=== PATIENT | male | born 1975 | race Caucasian/White ===

== ENCOUNTER 2019-04-19 09:40 | Day surgery (SDC) | payer OTHER ==
[~2019-04-19] VITALS: Ht 175.3 cm; Wt 82.4 kg
[2019-04-19] MEDS ORDERED: METRONIDAZOLE (11:23)
[2019-04-19] MEDS ORDERED: CIPRO (11:23)
[2019-04-19 11:30] VITALS: Ht 175.3 cm; Wt 82.4 kg
[2019-04-19 11:35] VITALS: BP 132/80; PULSE 74; RESP 18
[2019-04-19] MEDS ORDERED: MIDAZOLAM 1 MG/ML 2 ML INJ ONE ×3 (12:22)
[2019-04-19] MEDS ORDERED: FENTAnyl 50 MCG/ML VIAL ONE (12:22)
[2019-04-19 12:41] VITALS: BP 128/83; PULSE 84; RESP 18
== END 2019-04-19 15:33 | disposition home or self-care (01) ==
LOC: GIL 09:40
PROVIDERS: ATTEND Internal Medicine Gastroenterology
DX: Z12.11 Encounter for screening for malignant neoplasm of colon (principal); K64.4 Residual hemorrhoidal skin tags
CPT/HCPCS: 45378; J2250; J3010; Z7610

== ENCOUNTER 2019-04-25 14:14 | Inpatient (IN) | payer OTHER ==
[~2019-04-25] VITALS: Ht 170.2 cm; Wt 81.6 kg
[~2019-04-25 14:14] MED LIST: CIPRO; METRONIDAZOLE
[2019-04-25] MEDS ORDERED: SOD CHLORIDE 0.9% 1,000 ML IV STA (16:53)
--- NOTE | 2019-04-25 16:53 | ERD ---
ER Documentation Chief Complaint Chief Complaint ap x6 days, has colonscopy and on ABX ROS All systems reviewed and are negative except as per history of present illness. Medications Home Meds Reported Medications [Metronidazole] No Conflict Check 04/19/19 [Cipro] No Conflict Check 04/19/19 Allergies Allergies: Coded Allergies: No Known Allergy (Unverified , 04/19/19) PMhx/Soc Medical and Surgical Hx: pt denies Surgical Hx History of Surgery: No Anesthesia Reaction: No Hx Neurological Disorder: No Hx Respiratory Disorders: No Hx Cardiac Disorders: No Hx Psychiatric Problems: No Hx Miscellaneous Medical Probl: Yes (SHINGLES) Hx Substance Use: No Hx Tobacco Use: No Smoking Status: Never smoker Physical Exam Vitals Vital Signs Date Temp Pulse Resp B/P (MAP) Pulse Ox O2 O2 Flow FiO2 Time Delivery Rate 04/25/19 98.9 80 18 125/63 98 14:21 (83) Result Diagram: 04/25/19 1705 04/25/19 1705 Results 24 hrs Laboratory Tests Test 04/25/19 17:05 White Blood Count 11.4 10^3/ul Red Blood Count 4.69 10^6/ul Hemoglobin 13.7 g/dl Hematocrit 40.8 % Mean Corpuscular Volume 87.0 fl Mean Corpuscular Hemoglobin 29.2 pg Mean Corpuscular Hemoglobin Concent 33.6 g/dl Red Cell Distribution Width 12.0 % Platelet Count 434 10^3/UL Mean Platelet Volume 9.0 fl Immature Granulocytes % 0.400 % Neutrophils % 68.8 % Lymphocytes % 17.0 % Monocytes % 12.3 % Eosinophils % 1.0 % Basophils % 0.5 % Nucleated Red Blood Cells % 0.0 /100WBC Immature Granulocytes # 0.050 10^3/ul Neutrophils # 7.9 10^3/ul Lymphocytes # 1.9 10^3/ul Monocytes # 1.4 10^3/ul Eosinophils # 0.1 10^3/ul Basophils # 0.1 10^3/ul Nucleated Red Blood Cells # 0.0 10^3/ul Urine Color YELLOW Urine Clarity CLEAR Urine pH 5.0 Urine Specific [place] 1.028 Urine Ketones NEGATIVE mg/dL Urine Nitrite NEGATIVE mg/dL Urine Bilirubin NEGATIVE mg/dL Urine Urobilinogen NEGATIVE mg/dL Urine Leukocyte Esterase TRACE Pete/ul Urine Microscopic RBC 1 /HPF Urine Microscopic WBC 1 /HPF Urine Mucus FEW /HPF Urine Hemoglobin NEGATIVE mg/dL Urine Glucose NEGATIVE mg/dL Urine Total Protein NEGATIVE mg/dl Sodium Level 142 mmol/L Potassium Level 4.5 mmol/L Chloride Level 103 mmol/L Carbon Dioxide Level 30 mmol/L Anion Gap 9 Blood Urea Nitrogen 10 mg/dl Creatinine 0.96 mg/dl Est Glomerular Filtrat Rate mL/min > 60 mL/min Glucose Level 103 mg/dl Calcium Level 9.0 mg/dl Total Bilirubin 0.5 mg/dl Direct Bilirubin 0.00 mg/dl Indirect Bilirubin 0.5 mg/dl Aspartate Amino Transf (AST/SGOT) 14 IU/L Alanine Aminotransferase (ALT/SGPT) 14 IU/L Alkaline Phosphatase 51 IU/L Total Protein 8.6 g/dl Albumin 4.2 g/dl Globulin 4.40 g/dl Albumin/Globulin Ratio 0.95 Lipase 58 U/L Current Medications Medications Dose Sig/Mariana Start Time Status Last (Trade) Ordered Route PRN Stop Time Admin Dose Reason Admin Sodium 1,000 ml @ Q1H STAT 04/25/19 DC 04/25/19 Chloride 1,000 mls/hr IV 16:53 04/25/19 17:08 17:52 IV Flush 10 ml STK-MED 04/25/19 DC 04/25/19 (NS 10 ml) ONCE .ROUTE 18:05 04/25/19 18:27 18:06 Sodium 100 ml @ ud STK-MED 04/25/19 DC 04/25/19 Chloride ONCE .ROUTE 18:05 04/25/19 18:27 18:06 Iohexol 150 ml STK-MED 04/25/19 DC 04/25/19 (Omnipaque ONCE .ROUTE 18:05 04/25/19 18:27 300mg/ ml) 18:06 Patient: RAUL MUNOZ : 1975 Age: 43 Sex: M MR #: [id number] DOS: 04/25/19 1653 Ordering MD: BENNIE LINARES MD Location: [facility] Room/Bed: PROCEDURE: CT Abdomen and Pelvis with intravenous contrast. CLINICAL INDICATION: Abdominal Pain . TECHNIQUE: CT scan of the abdomen and pelvis with intravenous contrast was performed on a multi-detector high-resolution CT scanner. The patient was scanned following the uncomplicated intravenous administration of 100 cc of Omnipaque-300 contrast. Coronal and sagittal reformatted images were obtained from the axial source images. DICOM images are available. CTDIvol 12.68 mGy, and DLP 779.57 mGy.cm. One or more of the following dose reduction techniques were used: - Automated exposure control. - Adjustment of the mA and/or kV according to patient size. - Use of iterative reconstruction technique. COMPARISON: None available FINDINGS: Lower thorax: Normal. Liver: Normal. Portal vein is patent. Biliary: Gallbladder is normal. No intrahepatic or extrahepatic biliary dilatation. Pancreas: Normal. Spleen: Normal. Adrenal Glands: Normal. Urinary: Normal. Gastrointestinal: There is mild prominence of the appendix which courses towards a irregular 3.2 x 5.3 by 3.1 cm (AP x TV x CC) air and fluid collection with p eripheral enhancement, in the mid lower abdomen, concerning for perforation and abscess. There is also sigmoid colon diverticulitis with bowel wall thickening and adjacent stranding, which abuts the inferior aspect of the air fluid collection. Lymph nodes: No enlarged abdominal or pelvic lymph nodes. Shotty retroperitoneal lymph nodes are likely reactive. Vascular: Normal. Peritoneum/mesentery: Air and fluid collection in the lower abdomen as described above Reproductive organs: Normal. Musculoskeletal: Degenerative changes of the spine at L5-S1. IMPRESSION: There is an air and fluid collection suggestive of abscess measuring 3.2 x 5.3 x 3.1 cm in the lower mid abdomen. The appendix appears to course towards the collection, suggestive of ruptured appendicitis. However, there is also sigmoid colon diverticulitis which also abuts the inferior margin of the collection, and diverticular abscess is not totally excluded. If clinically indicated, consider further evaluation with CT abdomen pelvis with oral contrast. Departure Diagnosis: Primary Impression: Abdominal pain Additional Impression: History of diverticulitis Condition: Stable BENNIE LINARES MD Apr 25, 2019 16:53
[2019-04-25] MEDS ORDERED: SOD CHLORIDE 0.9% 100 ML ONE (18:05)
[2019-04-25] MEDS ORDERED: IOHEXOL 300MG/ML 150 ML BTL ONE (18:05)
[2019-04-25] MEDS ORDERED: PIPER-TAZO 3.375 GM IV (PMX) 100 ML IVPB ONE (20:00)
--- NOTE | 2019-04-25 20:14 | ERD ---
ER Documentation Chief Complaint Chief Complaint ap x6 days, has colonscopy and on ABX HPI This is a very pleasant 43-year-old male with no past medical history presents to the emergency department complaining of several weeks of abdominal pain. The patient indicated that the abdominal pain initially began in the lower periumbilical region. He states that it began to radiate to both the left and right lower quadrant. At the onset of his symptoms he initially went to his primary care physician and had an outpatient CT scan of the abdomen performed that indicated diverticulitis. The patient was started on ciprofloxacin and Flagyl. Indicates that his symptoms did not improve and therefore he will underwent an outpatient colonoscopy on April 20, 2019 roughly 1 week ago. At that time he was placed on further continuation of the antibiotics being ciprofloxacin and Flagyl but the dose was changed from 500 to 250 mg of cip rofloxacin. The patient states however that the pain has significantly worsened. He indicates that the pain is diffuse. He has not experienced any emesis. He states there is no alleviating or exacerbating factors to the pain. The patient indicates his last oral intake was roughly 12 hours prior to arrival. He had no past surgical history. ROS All systems reviewed and are negative except as per history of present illness. Medications Home Meds Reported Medications [Metronidazole] No Conflict Check 04/19/19 [Cipro] No Conflict Check 04/19/19 Allergies Allergies: Coded Allergies: No Known Allergy (Unverified , 04/19/19) PMhx/Soc Medical and Surgical Hx: pt denies Surgical Hx History of Surgery: No Anesthesia Reaction: No Hx Neurological Disorder: No Hx Respiratory Disorders: No Hx Cardiac Disorders: No Hx Psychiatric Problems: No Hx Miscellaneous Medical Probl: Yes (SHINGLES) Hx Substance Use: No Hx Tobacco Use: No Smoking Status: Never smoker Physical Exam Vitals Vital Signs Date Temp Pulse Resp B/P (MAP) Pulse Ox O2 O2 Flow FiO2 Time Delivery Rate 04/25/19 99.3 70 16 127/85 98 Room Air 20:03 (99) 04/25/19 98.9 80 18 125/63 98 14:21 (83) Physical Exam Constitutional:Well-developed. Well-nourished. HEENT:Normocephalic. Atraumatic.Pupils were equal round reactive to light. Moist mucous membranes.No tonsillar exudates. Neck: No nuchal rigidity. No lymphadenopathy. No posterior cervical spine tenderness or step-offs. Respiratory: Not using accessory muscles of respiration.Lungs were clear to auscultation bilaterally. No rhonchi. No rales. No wheezing. Cardiovascular: Regular rate regular rhythm.No murmurs. No rubs were appreciate d.S1, S2 normal. Distal pulses are palpable 2+ bilaterally. GI: Abdomen was soft. Guarding with no rebound. Tenderness in the left lower quadrant. Tenderness in the lower mid abdomen. Tenderness in the right lower quadrant. Psoas sign negative. Obturator sign negative. Non Distended. No pulsatile abdominal masses or bruits. No rebound. Bowel sounds were present and normal. Skin: No petechia, no purpura. No lesions on the palms or the soles of the feet. No maculopapular rash. NEURO: Patient was alert, awake, orientated x3.No facial droop. Gait observed and normal with no ataxia.Speech had regular rate and rhythm. No focal neurological deficits. Result Diagram: 04/25/19 1705 04/25/19 1705 Results 24 hrs Laboratory Tests Test 04/25/19 17:05 White Blood Count 11.4 10^3/ul Red Blood Count 4.69 10^6/ul Hemoglobin 13.7 g/dl Hematocrit 40.8 % Mean Corpuscular Volume 87.0 fl Mean Corpuscular Hemoglobin 29.2 pg Mean Corpuscular Hemoglobin Concent 33.6 g/dl Red Cell Distribution Width 12.0 % Platelet Count 434 10^3/UL Mean Platelet Volume 9.0 fl Immature Granulocytes % 0.400 % Neutrophils % 68.8 % Lymphocytes % 17.0 % Monocytes % 12.3 % Eosinophils % 1.0 % Basophils % 0.5 % Nucleated Red Blood Cells % 0.0 /100WBC Immature Granulocytes # 0.050 10^3/ul Neutrophils # 7.9 10^3/ul Lymphocytes # 1.9 10^3/ul Monocytes # 1.4 10^3/ul Eosinophils # 0.1 10^3/ul Basophils # 0.1 10^3/ul Nucleated Red Blood Cells # 0.0 10^3/ul Urine Color YELLOW Urine Clarity CLEAR Urine pH 5.0 Urine Specific [place] 1.028 Urine Ketones NEGATIVE mg/dL Urine Nitrite NEGATIVE mg/dL Urine Bilirubin NEGATIVE mg/dL Urine Urobilinogen NEGATIVE mg/dL Urine Leukocyte Esterase TRACE Pete/ul Urine Microscopic RBC 1 /HPF Urine Microscopic WBC 1 /HPF Urine Mucus FEW /HPF Urine Hemoglobin NEGATIVE mg/dL Urine Glucose NEGATIVE mg/dL Urine Total Protein NEGATIVE mg/dl Sodium Level 142 mmol/L Potassium Level 4.5 mmol/L Chloride Level 103 mmol/L Carbon Dioxide Level 30 mmol/L Anion Gap 9 Blood Urea Nitrogen 10 mg/dl Creatinine 0.96 mg/dl Est Glomerular Filtrat Rate mL/min > 60 mL/min Glucose Level 103 mg/dl Calcium Level 9.0 mg/dl Total Bilirubin 0.5 mg/dl Direct Bilirubin 0.00 mg/dl Indirect Bilirubin 0.5 mg/dl Aspartate Amino Transf (AST/SGOT) 14 IU/L Alanine Aminotransferase (ALT/SGPT) 14 IU/L Alkaline Phosphatase 51 IU/L Total Protein 8.6 g/dl Albumin 4.2 g/dl Globulin 4.40 g/dl Albumin/Globulin Ratio 0.95 Lipase 58 U/L Current Medications Medications Dose Sig/Mariana Start Time Status Last (Trade) Ordered Route PRN Stop Time Admin Dose Reason Admin Sodium 1,000 ml @ Q1H STAT 04/25/19 DC 04/25/19 Chloride 1,000 mls/hr IV 16:53 04/25/19 17:08 17:52 IV Flush 10 ml STK-MED 04/25/19 DC 04/25/19 (NS 10 ml) ONCE .ROUTE 18:05 04/25/19 18:27 18:06 Sodium 100 ml @ ud STK-MED 04/25/19 DC 04/25/19 Chloride ONCE .ROUTE 18:05 04/25/19 18:27 18:06 Iohexol 150 ml STK-MED 04/25/19 DC 04/25/19 (Omnipaque ONCE .ROUTE 18:05 04/25/19 18:27 300mg/ ml) 18:06 Piperacillin 100 ml @ ONCE ONCE 04/25/19 DC 04/25/19 Sod/ 200 mls/hr IVPB 20:00 04/25/19 19:59 Tazobactam 20:29 Sod Morphine 4 mg ONCE STAT 04/25/19 DC 04/25/19 Sulfate IV 20:31 04/25/19 20:37 (morphine) 20:32 Ondansetron 4 mg ONCE STAT 04/25/19 DC 04/25/19 HCl (Zofran IV 20:31 04/25/19 20:37 Inj) 20:32 Ondansetron 4 mg BRIDGE ORDER 04/25/19 HCl (Zofran PRN IV 21:30 04/26/19 Inj) NAUSEA/VOMITI 21:29 NG Iohexol Adult GIVE PRIOR 04/25/19 ((Gastrografi Formulation TO CT ONCE 21:30 04/25/19 n (Ple... PO 21:31 therapeutic equivalent)) Procedures/MDM This patient presented to the emergency department with abdominal pain and was seen and evaluated by myself. My differential diagnosis included but was not limited to abdominal aortic aneurysm, appendicitis, pancreatitis, perforated peptic ulcer, perforated viscus, Boerhaave's syndrome or visceral pain such as diverticulitis, DKA, esophagitis, hepatitis or bowel obstruction. The patient was placed on a bungy jump master, continuous pulse oximetry, and IV access was established by nursing staff. The patient did have a CT scan that was reviewed by both myself and the radiologist. This was with IV contrast. There was air and fluid collection in the lower mid abdomen measuring 3.2 x 5.3 x 3.1 cm. The appendix was very coarse towards the collection that could be suggestive of an abscess or ruptured appendicitis. At this time the patient was given IV Zosyn. The findings on the CT scan also indicated that there was sigmoid colon diverticulitis that abated with the inferior margin of the fluid collection and therefore a diverticular abscess could not completely be excluded. I am going to order a CT scan of the abdomen with oral contrast for further evaluation. He was given intravenous morphine and Zofran for analgesia control. I placed a call to the surgeon commissions coordinator. Dr. Mendoza. He was in agreement with performing the CT with oral contrast as the patient will likely benefit from IR drainage. The patient will be admitted under the care of Dr. Mercado. Patient will go to the medical surgical floor. Departure Diagnosis: Primary Impression: Ruptured appendicitis Additional Impression: Diverticulitis Condition: Stable JULI JONES MD Apr 25, 2019 20:14
[2019-04-25] MEDS ORDERED: ONDANSETRON 4 MG INJ IV STA (20:31)
[2019-04-25] MEDS ORDERED: morphine 4 MG/ML VIAL IV STA (20:31)
[2019-04-25 20:45] VITALS: BP 115/80; PULSE 62; RESP 18
[2019-04-25] MEDS ORDERED: IOHEXOL 14.3 MG(I)/ML (ADULT) BTL PO ONE (21:30)
[2019-04-25] MEDS ORDERED: NACL 0.9% 3 ML SYG IV SCH (21:30)
[2019-04-25] MEDS ORDERED: ACETAMINOPHEN 325 MG TAB PO PRN (21:30)
[2019-04-25] MEDS ORDERED: OXYCODONE/ACETAMINOPHEN (5/325) TAB PO PRN (21:30)
[2019-04-25] MEDS ORDERED: ACETAMINOPHEN 650 MG SUPP PR PRN (21:30)
[2019-04-25] MEDS ORDERED: ONDANSETRON 4 MG INJ IV PRN ×2 (21:30)
[2019-04-25] MEDS ORDERED: BISACODYL (EC) 5 MG TAB PO PRN (21:30)
[2019-04-25 22:45] VITALS: Ht 170.2 cm; Wt 81.6 kg
[2019-04-25] MEDS ORDERED: DIC20 PO (22:52)
[2019-04-25] MEDS ORDERED: METR-111 PO (22:52)
[2019-04-25] MEDS ORDERED: CIPR500T4 PO (22:52)
[2019-04-25] MEDS: DEXTROSE 5%-0.45% NACL 1,000 ML IV SCH (23:13)
[2019-04-25] MEDS: morphine 2 MG INJ IV PRN (23:14)
[2019-04-26] MEDS ORDERED: PIPER-TAZO 3.375 GM IV (PMX) 100 ML IVPB SCH (06:00)
[2019-04-26] MEDS ORDERED: PANTOPRAZOLE 40 MG INJ IV SCH (06:00)
[2019-04-26] MEDS: FAMOTIDINE 20 MG INJ IV SCH ×2 (07:57→21:05)
[2019-04-26 08:07] VITALS: BP 103/69; PULSE 55; RESP 18
[2019-04-26] MEDS: DEXTROSE 5%-0.45% NACL 1,000 ML IV SCH ×2 (09:53→11:31)
[2019-04-26] MEDS: morphine 2 MG INJ IV PRN ×4 (11:28→23:21)
--- NOTE | 2019-04-26 12:05 | QN ---
Documentation Comment pt was seen and examined WENDI BELL MD Apr 26, 2019 12:05
--- NOTE | 2019-04-26 13:14 | HP ---
DATE OF ADMISSION: 04/25/2019 REASON FOR ADMISSION: Abdominal pain. HISTORY OF PRESENT ILLNESS: This is a 43-year-old male with a past medical history of diverticulitis , last episode 3 to 4 months ago, presented to the Emergency Department complaining of several weeks of abdominal pain getting worse for the past few days. The patient said that initially the patient s tarted having pain in the left lower quadrant approximately 2 weeks ago. He went to his primary care physician, had an outpatient CT scan performed that indicated diverticulitis. The patient was start ed on Cipro and Flagyl and stated that the patient's symptoms did not improve; therefore, he underwen t an outpatient colonoscopy on 04/20/[address] Galindo. At that time, he was placed on further co ntinuation of antibiotics with Cipro and Flagyl and the Flagyl dose was reduced to 250. There was an other new medication that was added. Since then, the patient said that pain had been getting worse. The pain was now in the lower abdominal region below the umbilicus and also in the right lower quadr ant. He started having fevers for the last 2 to 3 days and the pain was getting diffuse and he was t rying to eat something, but he could not eat. He was feeling weak, tired and was having weight loss and came to the Emergency Department for further evaluation. On admission, temperature 98.9, pulse 8 0, respirations 18, blood pressure 125/63. White count 11.4, hemoglobin 13.7, platelet count 434. P atient had a CT of the abdomen and pelvis which was done initially with no contrast and then with IV contrast that showed air-filled collection suggestive of abscess measuring 3.2, to 5.3, to 3.1 cm in the lower mid abdomen. Appendix appears to course toward the collection, suggestive of ruptured appe ndicitis; however, there is also sigmoid colon diverticulitis which also abuts the inferior margin of the collection and diverticular abscess not totally excluded. Patient was started on Zofran, morphi ne and Zosyn and was admitted for further management. PAST MEDICAL HISTORY: History of diverticulosis and diverticulitis. ALLERGIES: None. HOME MEDICATIONS: 1. Cipro 500 b.i.d. 2. Flagyl 250 t.i.d. 3. Dicyclomine 20 b.i.d. PAST SURGICAL HISTORY: None. SOCIAL HISTORY: Denies any history of smoking, alcohol or any drug use. Currently lives at home. T he patient used to work in a [employer] business. FAMILY HISTORY: Significant for colon surgeries, bowel surgeries. Sister had colectomy and also mot her. PHYSICAL EXAMINATION: VITAL SIGNS: Currently, blood pressure 120/81. Initial temperature was 100.0, pulse is 70, respirat ions 22, saturating 91.7%. GENERAL: The patient is awake, alert, oriented, does not appear to be in any acute distress with mil d pain. HEENT: Normocephalic, atraumatic. NECK: Supple. No rigidity. CHEST: Clear to auscultate bilaterally. ABDOMEN: Soft, no rebound tenderness. Tenderness present in the right lower quadrant and lower abdo men below the umbilicus. Psoas sign negative. Positive bowel sounds. EXTREMITIES: No clubbing, cyanosis, or edema. NEUROLOGIC: Awake, alert, oriented, follows all commands, no weakness. DIAGNOSTIC DATA: Shows white count of 11.4, hemoglobin 13.7, platelet count 434. BMP shows BUN of 1 0, creatinine 0.96. UA showed negative CT of the abdomen and pelvis: As above. ASSESSMENT AND PLAN: This is a 43-year-old male presented with: 1. Severe lower abdominal pain with a CT of the abdomen and pelvis showing an air and fluid collecti on suggestive of abscess, 3.2 x 5.3 cm x 3.1 cm. Could be secondary to ruptured appendicitis/sigmoid ruptured diverticulitis. 2. History of diverticulosis, status post diverticulitis already treated with p.o. antibiotics. 3. History of colitis. 4. Leukocytosis secondary to #1. PLAN: At this period of time, the patient is admitted to med/surg. The patient will be kept n.p.o. The patient is on IV Zofran, pain control, and IV Zosyn. I spoke to Dr. Juan. The patient had ord ers for a CT-guided drainage; however, radiology not able to do it. I spoke to . Again, esteban mckeon give her expert opinion for possible surgery. We will also call Dr. Galindo for GI consultation. Rest of the treatment will depend on the patient's hospitalization course. Dictated By: WENDI MACEDO/FABIENNE Conf#: [id number] DID#: [id number] CC: SURESH SINGH MD;*End*
[2019-04-26 14:32] VITALS: BP 121/78; PULSE 55; RESP 18
--- NOTE | 2019-04-26 17:43 | CONS ---
DATE OF ADMISSION: 04/25/2019 DATE OF CONSULTATION: HISTORY OF PRESENT ILLNESS: The patient is a 43-year-old male with a history of diverticulitis, last episode was 4 months ago, came to the emergency room complaining of pain in the lower quadrant which started acutely. The patient had emergency CAT scan done which showed abscess collection. The radi ologist was not certain whether it is due to the diverticular rupture or due to the appendiceal ruptu re. The patient had a colonoscopy done 7 days ago, and at that point, there was a segmental colitis, but no fresh diverticulitis was identified. So, the patient is admitted for further management and treatment. The patient was evaluated by the surgeon. Since the radiologist could not drain the absc ess in outpatient, he is scheduled for surgery. This information, I got from the patient and the sta ff nurse. PAST MEDICAL HISTORY: History of diverticulosis and diverticulitis. HOME MEDICATIONS: 1. Cipro. 2. Flagyl. 3. Dicyclomine. SOCIAL HISTORY: Negative for smoking, alcohol or drug abuse. FAMILY HISTORY: Nothing contributory. PHYSICAL EXAMINATION: GENERAL: Well-built, nourished, not in distress. VITAL SIGNS: Stable. HEENT: Unremarkable. NECK: Supple. No thyromegaly, no lymphadenopathy. CARDIOVASCULAR: No murmur, gallop or click. LUNGS: Clear. ABDOMEN: Benign except for mild tenderness in suprapubic area. LUNGS: Clear. EXTREMITIES: No edema. CENTRAL NERVOUS SYSTEM: Grossly within normal. LABORATORY DATA: WBC dropped down from 11.4 to 9.4. IMPRESSION: 1. Abscess, suprapubic area, diverticular versus appendiceal. 2. Mild leukocytosis. PLAN: NPO. Continue antibiotic and surgical followup. Dictated By: LILI LOPEZ MD PJ/NTS Conf#: [id number] DID#: [id number] CC: SURESH SINGH MD;*EndCC*
--- NOTE | 2019-04-26 17:48 | CONS ---
Assessment/Plan Assessment/Plan Hospital Course (Demo Recall) Invasive radiology consulted but they were unable to place the drain because they do not see it is suitable window to safely pass the needle. Problems: (1) Abdominal pain Status: Acute Qualifiers: Qualified Codes: R10.30 - Lower abdominal pain, unspecified (2) History of diverticulitis Status: Acute (3) Diverticulitis Status: Acute Assessment/Plan (Daily) Given the recurrent attacks of acute diverticulitis and abscess that is not am enable for percutaneous drainage the patient will benefit from laparoscopy washout and drainage of the intra-abdominal abscess. In addition I discussed with the patient the possibility of diverting ileostomy. Vision regarding ileostomy will be obtained during the surgery. We discussed risks and benefits were discussed possible side effects, possible complications including but not limited to bleeding, infection, injury to other organs, anesthesia complication, patient understood risk and benefits and wished to proceed. Consultation Date/Type/Reason Admit Date/Time Apr 25, 2019 at 21:01 Date of Consultation: Apr 26, 2019 Type of Consult Surgical Reason for Consultation Acute perforated diverticulitis Date/Time of Note DATE: 04/26/19 TIME: 17:44 Hx of Present Illness This is a 43-year-old male with a past medical history of diverticulitis, last episode 3 to 4 months ago, presented to the Emergency Department complaining of several weeks of abdominal pain getting worse for the past few days. The patient said that initially the patient started having pain in the left lower quadrant approximately 2 weeks ago. He went to his primary care physician, had an outpatient CT scan performed that indicated diverticulitis. The patient was started on Cipro and Flagyl and stated that the patient's symptoms did not improve; therefore, he underwent an outpatient colonoscopy on 04/20/[address] Galindo. At that time, he was placed on further continuation of antibiotics with Cipro and Flagyl and the Flagyl dose was reduced to 250. There was another new medication that was added. Since then, the patient said that pain had been getting worse. The pain was now in the lower abdominal region below the umbilicus and also in the right lower quadrant. He started having fevers for the last 2 to 3 days and the pain was getting diffuse and he was trying to eat something, but he could not eat. He was feeling weak, tired and was having weight loss and came to the Emergency Department for further evaluation. On admission, temperature 98.9, pulse 80, respirations 18, blood pressure 125/63. White count 11.4, hemoglobin 13.7, platelet count 434. Patient had a CT of the abdomen and pelvis which was done initially with no contrast and then with IV contrast that showed air-filled collection suggestive of abscess measuring 3.2, to 5.3, to 3.1 cm in the lower mid abdomen. Appendix appears to course toward the collection, suggestive of ruptured appendicitis; however, there is also sigmoid colon diverticulitis which also abuts the inferior margin of the collection and diverticular abscess not totally excluded. Patient was started on Zofran, morphine and Zosyn and was admitted for further management. Constitutional: no complaints, improved Eyes: no complaints ENT: no complaints Respiratory: no complaints Cardiovascular: no complaints Gastrointestinal: pain, diarrhea Genitourinary: no complaints Musculoskeletal: no complaints Skin: no complaints Neurologic: no complaints Endocrine: no complaints Lymphatic: no complaints Psychological: no complaints, nl mood/affect Immunologic: no complaints Past Medical History Medical History: diverticulitis Home Meds Reported Medications Dicyclomine HCl (Dicyclomine HCl) 20 Mg Tablet, 20 MG PO BID for 30 Days, #60 TAKE 1 TABLET BY MOUTH TWICE A DAY 04/25/19 Ciprofloxacin Hcl* (Ciprofloxacin Hcl*) 500 Mg Tablet, 500 MG PO BID TAKE 1 TABLET BY MOUTH TWICE A DAY FOR 7 DAYS 04/25/19 Metronidazole (Flagyl) 250 Mg Tab, 250 MG PO TID for 7 Days, #21 TAKE 1 TABLET BY MOUTH 3 TIMES A DAY FOR 7 DAYS 04/25/19 Discontinued Reported Medications [Metronidazole] No Conflict Check 04/19/19 [Cipro] No Conflict Check 04/19/19 Medications Current Medications Dextrose/Sodium Chloride 1,000 ml @ 80 mls/hr [id number] IV Last administered on 04/26/19at 11:31; Admin Dose 80 MLS/HR; Start 04/25/19 at 21:23 IV Flush (NS 3 ml) 3 ml PER PROTOCOL IV ; Start 04/25/19 at 21:30 Ondansetron HCl (Zofran Inj) 4 mg Q6H PRN IV NAUSEA/VOMITING; Start 04/25/19 at 21:30 Acetaminophen (Tylenol Tab) 650 mg Q6H PRN PO .PAIN 1-3 OR TEMP; Start 04/25/19 at 21:30 Acetaminophen (Tylenol Supp) 650 mg Q6H PRN [place] .PAIN 1-3 OR TEMP; Start 04/25/19 at 21:30 Morphine Sulfate (morphine) 2 mg Q4H PRN IV .SEVERE PAIN 7-10 Last administered on 04/26/19at 15:44; Admin Dose 2 MG; Start 04/25/19 at 21:30 Docusate Sodium (Colace) 100 mg Q12H PRN PO .CONSTIPATION; Start 04/25/19 at 21:30 Magnesium Hydroxide (Milk Of Mag) 30 ml DAILY PRN PO .CONSTIPATION; Start 04/25/19 at 21:30 Famotidine (Pepcid Iv) 20 mg BID IV ; Start 04/26/19 at 09:00 Allergies: Coded Allergies: No Known Allergy (Unverified , 04/25/19) Family History Significant Family History: other (Mother and sister both had diverticulitis in both that colectomy was performed) Social History Alcohol Use: none Smoking Status: Never smoker Exam/Review of Systems Exam Vitals Vital Signs Date Temp Pulse Resp B/P (MAP) Pulse Ox O2 O2 Flow FiO2 Time Delivery Rate 04/26/19 98.6 55 18 121/78 99 Room Air 14:32 (92) Intake and Output 04/25/19 04/25/19 04/26/19 1515:00 23:00 07:00 IntakeIntake Total 1000 ml 1300 ml OutputOutput Total 1050 ml BalanceBalance 1000 ml 250 ml Constitutional: alert, oriented, well developed Psych: no complaints, nl mood/affect Head: normocephalic, atraumatic Eyes: nl conjunctiva, EOMI, nl lids, nl sclera, PERRL ENMT: nl external ears & nose, nl lips & teeth, nl nasal mucosa & septum Neck: supple, non-tender Respiratory: clear to auscultation, normal air movement Cardiovascular: regular rate and rhythm, nl pulses Gastrointestinal: soft, nl liver, spleen, non-tender, other (There is marked tenderness in the left lower quadrant and lower mid abdomen) Musculoskeletal: nl extremities to inspection, nl gait and stance Extremities: normal pulses Neurological: DOCTOR ASSISTANT II-XII intact, nl mental status, nl speech, nl strength Skin: nl turgor; No rash or lesions Lymph: nl lymph nodes Results Result Diagram: 04/26/19 0418 04/26/19 0418 Results 24hrs Laboratory Tests Test 04/26/19 04:18 White Blood Count 9.4 Red Blood Count 4.13 L Hemoglobin 12.2 L Hematocrit 35.7 L Mean Corpuscular Volume 86.4 Mean Corpuscular Hemoglobin 29.5 Mean Corpuscular Hemoglobin Concent 34.2 Red Cell Distribution Width 12.1 Platelet Count 381 Mean Platelet Volume 9.2 Immature Granulocytes % 0.500 H Neutrophils % 65.4 Lymphocytes % 20.2 Monocytes % 11.3 H Eosinophils % 2.1 Basophils % 0.5 Nucleated Red Blood Cells % 0.0 Immature Granulocytes # 0.050 H Neutrophils # 6.1 Lymphocytes # 1.9 Monocytes # 1.1 H Eosinophils # 0.2 Basophils # 0.1 Nucleated Red Blood Cells # 0.0 Sodium Level 143 Potassium Level 4.1 Chloride Level 105 Carbon Dioxide Level 28 Anion Gap 10 Blood Urea Nitrogen 7 Creatinine 0.96 Est Glomerular Filtrat Rate mL/min > 60 Glucose Level 108 Calcium Level 8.7 Total Bilirubin 0.6 Direct Bilirubin 0.00 Indirect Bilirubin 0.6 Aspartate Amino Transf (AST/SGOT) 13 L Alanine Aminotransferase (ALT/SGPT) 17 Alkaline Phosphatase 46 Total Protein 7.2 # Albumin 3.5 Globulin 3.70 H Albumin/Globulin Ratio 0.94 Medications Medication Current Medications Dextrose/Sodium Chloride 1,000 ml @ 80 mls/hr [id number] IV Last administered on 04/26/19at 11:31; Admin Dose 80 MLS/HR; Start 04/25/19 at 21:23 IV Flush (NS 3 ml) 3 ml PER PROTOCOL IV ; Start 04/25/19 at 21:30 Ondansetron HCl (Zofran Inj) 4 mg Q6H PRN IV NAUSEA/VOMITING; Start 04/25/19 at 21:30 Acetaminophen (Tylenol Tab) 650 mg Q6H PRN PO .PAIN 1-3 OR TEMP; Start 04/25/19 at 21:30 Acetaminophen (Tylenol Supp) 650 mg Q6H PRN [place] .PAIN 1-3 OR TEMP; Start 04/25/19 at 21:30 Morphine Sulfate (morphine) 2 mg Q4H PRN IV .SEVERE PAIN 7-10 Last administered on 04/26/19at 15:44; Admin Dose 2 MG; Start 04/25/19 at 21:30 Docusate Sodium (Colace) 100 mg Q12H PRN PO .CONSTIPATION; Start 04/25/19 at 21:30 Magnesium Hydroxide (Milk Of Mag) 30 ml DAILY PRN PO .CONSTIPATION; Start 04/25/19 at 21:30 Famotidine (Pepcid Iv) 20 mg BID IV ; Start 04/26/19 at 09:00 ELIAS CEDENO MD Apr 26, 2019 17:48
[2019-04-26 19:19] VITALS: BP 139/91; PULSE 73; RESP 18
[2019-04-27] VITALS (19 sets, daily range): BP systolic 116–155; BP diastolic 78–101; PULSE 51–78; RESP 10–20
[2019-04-27] MEDS: DEXTROSE 5%-0.45% NACL 1,000 ML IV SCH (00:36)
--- NOTE | 2019-04-27 07:21 | PREAC ---
Date/Time of Note Date/Time of Note DATE: 04/27/19 TIME: 07:18 Anesthesia Eval and Record Evaluation Time Pre-Procedure Interview DATE: 04/27/19 TIME: 07:18 Age 43 Sex male NPO: 8 hrs Preoperative diagnosis s/p Ruptured appendicitis vs diverticulitis Planned procedure DIagnostic Laparoscopy, vs Laparotomy drainage of an intraabdominal abscess, possible Ileostomy Past Medical History Past Medical History: Includes Heme: Anemia Surgery & Anesthesia Issues No known issue Meds Anticoagulation: No Beta Rama within 24 hr: No Reason Beta Rama not given: Pt. not on B-Rama Reported Medications Dicyclomine HCl (Dicyclomine HCl) 20 Mg Tablet, 20 MG PO BID for 30 Days, #60 TAKE 1 TABLET BY MOUTH TWICE A DAY 04/25/19 Ciprofloxacin Hcl* (Ciprofloxacin Hcl*) 500 Mg Tablet, 500 MG PO BID TAKE 1 TABLET BY MOUTH TWICE A DAY FOR 7 DAYS 04/25/19 Metronidazole (Flagyl) 250 Mg Tab, 250 MG PO TID for 7 Days, #21 TAKE 1 TABLET BY MOUTH 3 TIMES A DAY FOR 7 DAYS 04/25/19 Discontinued Reported Medications [Metronidazole] No Conflict Check 04/19/19 [Cipro] No Conflict Check 04/19/19 Current Medications Dextrose/Sodium Chloride 1,000 ml @ 80 mls/hr [id number] IV Last administered on 04/27/19at 00:36; Admin Dose 80 MLS/HR; Start 04/25/19 at 21:23 IV Flush (NS 3 ml) 3 ml PER PROTOCOL IV ; Start 04/25/19 at 21:30 Ondansetron HCl (Zofran Inj) 4 mg Q6H PRN IV NAUSEA/VOMITING; Start 04/25/19 at 21:30 Acetaminophen (Tylenol Tab) 650 mg Q6H PRN PO .PAIN 1-3 OR TEMP; Start 04/25/19 at 21:30 Acetaminophen (Tylenol Supp) 650 mg Q6H PRN [place] .PAIN 1-3 OR TEMP; Start 04/25/19 at 21:30 Morphine Sulfate (morphine) 2 mg Q4H PRN IV .SEVERE PAIN 7-10 Last administered on 04/26/19at 23:21; Admin Dose 2 MG; Start 04/25/19 at 21:30 Docusate Sodium (Colace) 100 mg Q12H PRN PO .CONSTIPATION; Start 04/25/19 at 21:30 Magnesium Hydroxide (Milk Of Mag) 30 ml DAILY PRN PO .CONSTIPATION; Start 04/25/19 at 21:30 Famotidine (Pepcid Iv) 20 mg BID IV Last administered on 04/26/19at 21:05; Admin Dose 20 MG; Start 04/26/19 at 09:00 Meds reviewed: Yes Allergies Coded Allergies: No Known Allergy (Unverified , 04/25/19) Allergies Reviewed: Yes Labs/Studies Labs Reviewed: Reviewed by anesthesiologist Result Diagram: 04/27/19 0436 04/26/19 0418 Laboratory Tests 04/27/19 04:36 test: N/A Studies: ECG (n/a), CXR (n/a) Pre-procedure Exam Last vitals Vital Signs Date Temp Pulse Resp B/P (MAP) Pulse Ox O2 O2 Flow FiO2 Time Delivery Rate 04/26/19 98.5 73 18 139/91 97 Room Air 19:19 (107) Airway: Adequate mouth opening, Adequate thyromental dist Mallampati: Mallampati II Teeth: Normal Lung: Normal Heart: Normal ASA Physical Status ASA physical status: 2 Emergency: None Planned Anesthetic General/MAC: ETT Nerve block: TAP (bilateral) Planned Pain Management Single shot nerve block, Parenteral pain med Pre-operative Attestations Prior to commencing anesthesia and surgery, the patient was re-evaluated, there was verification of: *The patient's identity *The results of appropriate recent lab work and preoperative vital signs *The above evaluation not changing prior to induction *Anesthetic plan, risk benefits, alternative and complications discussed with patient/family; questions answered; patient/family understands, accepts and wishes to proceed. MIGDALIA JAMES MD Apr 27, 2019 07:21
[2019-04-27] MEDS ORDERED: MIDAZOLAM 1 MG/ML 2 ML INJ ONE (07:26)
[2019-04-27] MEDS ORDERED: ROCURONIUM 50 MG INJ ONE (07:26)
[2019-04-27] MEDS ORDERED: PROPOFOL 20 ML ONE (07:26)
[2019-04-27] MEDS ORDERED: CEFAZOLIN 1 GM INJ ONE (07:26)
[2019-04-27] MEDS ORDERED: ROPIVACAINE 0.5 % 30 ML VIAL ONE (07:26)
[2019-04-27] MEDS ORDERED: metroNIDAZOLE 500 MG/NS (PMX) 100 ML IVPB ONE (07:26)
[2019-04-27] MEDS ORDERED: LABETALOL HCL 20MG INJ IV PRN (07:30)
[2019-04-27] MEDS ORDERED: HYDROmorphONE 1 MG/5 ML IV SYRINGE IV PRN ×3 (07:30)
[2019-04-27] MEDS ORDERED: METOCLOPRAMIDE 10 MG INJ IV PRN (07:30)
[2019-04-27] MEDS ORDERED: DIPHENHYDRAMINE 50 MG INJ IV PRN (07:30)
[2019-04-27] MEDS ORDERED: EPHEDrine 25 MG/5 ML SYG IV PRN (07:30)
[2019-04-27] MEDS ORDERED: ONDANSETRON 4 MG INJ IV PRN ×2 (07:30→09:00)
[2019-04-27] MEDS ORDERED: MEPERIDINE 25 MG INJ IV PRN (07:30)
[2019-04-27] MEDS ORDERED: FENTAnyl 50 MCG/ML VIAL IV PRN ×3 (07:30)
--- NOTE | 2019-04-27 07:46 | HPN ---
Date/Time of Note Date/Time of Note DATE: 04/27/19 TIME: 07:46 Interval H&P Admission Note Pt. seen H&P reviewed: No system changes ELIAS CEDENO MD Apr 27, 2019 07:46
[2019-04-27] MEDS: FAMOTIDINE 20 MG INJ IV SCH ×3 (08:00→21:40)
[2019-04-27] MEDS ORDERED: PIPER-TAZO 3.375 GM IV (PMX) 100 ML IVPB SCH (08:00)
[2019-04-27] MEDS ORDERED: KETOROLAC 30 MG INJ ONE (08:43)
[2019-04-27] MEDS ORDERED: METOCLOPRAMIDE 10 MG INJ ONE (08:43)
[2019-04-27] MEDS ORDERED: DEXAMETHASONE 4 MG/ML 5 ML INJ ONE (08:43)
[2019-04-27] MEDS ORDERED: ONDANSETRON 4 MG INJ ONE (08:43)
[2019-04-27] MEDS ORDERED: SUGAMMADEX SODIUM 200 MG/2 ML VIAL IV ONE (08:44)
--- NOTE | 2019-04-27 08:52 | SIPON ---
Date/Time of Note Date/Time of Note DATE: 04/27/19 TIME: 08:50 Operative Report Preoperative Diagnosis Intra-abdominal abscess perforated diverticulitis Postoperative Diagnosis Intra-abdominal abscess. Possibly perforated diverticulitis versus perforated appendicitis Operation/Procedure Performed Exploratory laparoscopy, drainage of the intra-abdominal abscess, appendectomy Surgeon see signature line bar assistant None Anesthesia: general Estimated blood loss: 10 - 50 ml's Transfusion Required none Specimen Appendix Grafts/Implants none Complications none ELIAS CEDENO MD Apr 27, 2019 08:52
[2019-04-27] MEDS ORDERED: ACETAMINOPHEN 325 MG TAB PO PRN (09:00)
[2019-04-27] MEDS ORDERED: DIPHENHYDRAMINE 25 MG CAP PO PRN (09:00)
--- NOTE | 2019-04-27 09:03 | PAC ---
Date/Time of Note Date/Time of Note DATE: 04/27/19 TIME: 09:02 Post-Anesthesia Notes Post-Anesthesia Note Last documented vital signs Vital Signs Date Temp Pulse Resp B/P (MAP) Pulse Ox O2 O2 Flow FiO2 Time Delivery Rate 04/27/19 98.5 73 18 139/91 97 Room Air 09:00 (107) Activity: WNL Respiratory function: WNL Cardiovascular function: WNL Mental status: Baseline Pain reasonably controlled: Yes Hydration appropriate: Yes Nausea/Vomiting absent: Yes MIGDALIA JAMES MD Apr 27, 2019 09:03
[2019-04-27] MEDS: morphine 2 MG INJ IV PRN ×3 (10:22→20:36)
[2019-04-27] MEDS: D5W-0.45 NACL + KCL 20 MEQ 1,000 ML IV SCH ×2 (10:22→17:24)
--- NOTE | 2019-04-27 11:47 | PN ---
Date/Time of Note Date/Time of Note DATE: 04/27/19 TIME: 11:44 Assessment/Plan VTE Prophylaxis Risk score (from [facility] [place])>0 risk: 3 SCD applied (from [facility] [place]): Yes Pharmacological prophylaxis: NA/contraindicated Pharm contraindication: low risk/ambulating Lines/Catheters IV C[facility]ter Type (from [facility] Peripheral IV Assessment/Plan Assessment/Plan 43-year-old male presented with: 1. Severe lower abdominal pain with a CT of the abdomen and pelvis showing an air and fluid collection suggestive of abscess, 3.2 x 5.3 cm x 3.1 cm. Could be secondary to ruptured appendicitis/sigmoid ruptured diverticulitis. s/p Exploratory laparoscopy, drainage of the intra-abdominal abscess, appendectomy on 04/27/19 2. History of diverticulosis, status post diverticulitis already treated with p.o. antibiotics. 3. History of colitis. 4. Leukocytosis secondary to #1. Plan - WILL FU post op cultures - ID consult - Post op care, pain control - iv zosyn/flagyl - GI./DVT prophylaxsis Result Diagram: 04/27/19 0436 04/26/19 0418 Results 24hrs Laboratory Tests Test 04/27/19 04:36 White Blood Count 5.6 # Red Blood Count 4.30 L Hemoglobin 12.8 L Hematocrit 36.9 L Mean Corpuscular Volume 85.8 Mean Corpuscular Hemoglobin 29.8 Mean Corpuscular Hemoglobin Concent 34.7 Red Cell Distribution Width 11.9 Platelet Count 395 Mean Platelet Volume 9.1 Immature Granulocytes % 0.700 H Neutrophils % 38.3 L Lymphocytes % 39.9 Monocytes % 15.5 H Eosinophils % 4.7 Basophils % 0.9 Nucleated Red Blood Cells % 0.0 Immature Granulocytes # 0.040 H Neutrophils # 2.1 Lymphocytes # 2.2 Monocytes # 0.9 Eosinophils # 0.3 Basophils # 0.1 Nucleated Red Blood Cells # 0.0 Subjective 24 Hr Interval Summary Free Text/Dictation SP Exploratory laparoscopy with drainage of the intra-abdominal abscess, appendectomy Exam/Review of Systems Exam Vitals Vital Signs Date Temp Pulse Resp B/P (MAP) Pulse Ox O2 O2 Flow FiO2 Time Delivery Rate 04/27/19 60 10 133/88 95 Room Air 10:04 (103) 04/27/19 98.4 09:14 Intake and Output 04/26/19 04/26/19 04/27/19 1515:00 23:00 07:00 IntakeIntake Total 700 ml 640 ml 1310 ml OutputOutput Total 400 ml 400 ml 600 ml BalanceBalance 300 ml 240 ml 710 ml Exam ENERAL: The patient is awake, alert, oriented, does not appear to be in any acute distress with mild pain. HEENT: Normocephalic, atraumatic. NECK: Supple. No rigidity. CHEST: Clear to auscultate bilaterally. ABDOMEN: S Tenderness present in the right lower quadrant and lower abdomen below the umbilicus. JANNETTE drain EXTREMITIES: No clubbing, cyanosis, or edema. NEUROLOGIC: Awake, alert, oriented, follows all commands, no weakness. Results Results 24hrs Laboratory Tests Test 04/27/19 04:36 White Blood Count 5.6 # Red Blood Count 4.30 L Hemoglobin 12.8 L Hematocrit 36.9 L Mean Corpuscular Volume 85.8 Mean Corpuscular Hemoglobin 29.8 Mean Corpuscular Hemoglobin Concent 34.7 Red Cell Distribution Width 11.9 Platelet Count 395 Mean Platelet Volume 9.1 Immature Granulocytes % 0.700 H Neutrophils % 38.3 L Lymphocytes % 39.9 Monocytes % 15.5 H Eosinophils % 4.7 Basophils % 0.9 Nucleated Red Blood Cells % 0.0 Immature Granulocytes # 0.040 H Neutrophils # 2.1 Lymphocytes # 2.2 Monocytes # 0.9 Eosinophils # 0.3 Basophils # 0.1 Nucleated Red Blood Cells # 0.0 Medications Medication Current Medications Dextrose/Sodium Chloride 1,000 ml @ 80 mls/hr [id number] IV Last administered on 04/27/19at 00:36; Admin Dose 80 MLS/HR; Start 04/25/19 at 21:23 IV Flush (NS 3 ml) 3 ml PER PROTOCOL IV ; Start 04/25/19 at 21:30 Ondansetron HCl (Zofran Inj) 4 mg Q6H PRN IV NAUSEA/VOMITING; Start 04/25/19 at 21:30 Acetaminophen (Tylenol Supp) 650 mg Q6H PRN [place] .PAIN 1-3 OR TEMP; Start 04/25/19 at 21:30 Morphine Sulfate (morphine) 2 mg Q4H PRN IV .SEVERE PAIN 7-10 Last administered on 04/27/19at 10:22; Admin Dose 2 MG; Start 04/25/19 at 21:30 Docusate Sodium (Colace) 100 mg Q12H PRN PO .CONSTIPATION; Start 04/25/19 at 21:30 Magnesium Hydroxide (Milk Of Mag) 30 ml DAILY PRN PO .CONSTIPATION; Start 04/25/19 at 21:30 Famotidine (Pepcid Iv) 20 mg BID IV Last administered on 04/26/19at 21:05; Admin Dose 20 MG; Start 04/26/19 at 09:00 Hydromorphone HCl (Dilaudid) 0.2 mg PACU PRN IV MILD PAIN 1-3; Start 04/27/19 at 07:30; Stop 04/27/19 at 12:00 Hydromorphone HCl (Dilaudid) 0.4 mg PACU PRN IV MOD PAIN 4-6 Last administered on 04/27/19at 09:30; Admin Dose 0.4 MG; Start 04/27/19 at 07:30; Stop 04/27/19 at 12:00 Hydromorphone HCl (Dilaudid) 0.6 mg PACU PRN IV SEVERE PAIN 7-10 Last administered on 04/27/19at 09:19; Admin Dose 0.6 MG; Start 04/27/19 at 07:30; Stop 04/27/19 at 12:00 Fentanyl (Sublimaze) 25 mcg PACU ORDER PRN IV MILD PAIN 1-3; Start 04/27/19 at 07:30; Stop 04/27/19 at 12:00 Fentanyl (Sublimaze) 50 mcg PACU ORDER PRN IV MOD PAIN 4-6 Last administered on 04/27/19at 09:50; Admin Dose 50 MCG; Start 04/27/19 at 07:30; Stop 04/27/19 at 12:00 Fentanyl (Sublimaze) 75 mcg PACU ORDER PRN IV SEVERE PAIN 7-10; Start 04/27/19 at 07:30; Stop 04/27/19 at 12:00 Ondansetron HCl (Zofran Inj) 4 mg PACU ORDER PRN IV NAUSEA/VOMITING; Start 04/27/19 at 07:30; Stop 04/27/19 at 12:00 Metoclopramide HCl (Reglan) 10 mg PACU ORDER PRN IV NAUSEA/VOMITING; Start 04/27/19 at 07:30; Stop 04/27/19 at 12:00 Labetalol HCl (Labetalol) 5 mg PACU ORDER PRN IV HIGH BLOOD PRESSURE; Start 04/27/19 at 07:30; Stop 04/27/19 at 12:00 Ephedrine Sulfate 5 mg PACU ORDER PRN IV BLOOD PRESSURE SUPPORT; Start 04/27/19 at 07:30; Stop 04/27/19 at 12:00 Meperidine HCl (Demerol) 25 mg PACU ORDER PRN IV .RIGORS Last administered on 04/27/19at 09:18; Admin Dose 25 MG; Start 04/27/19 at 07:30; Stop 04/27/19 at 12:00 Diphenhydramine HCl (Benadryl) 25 mg PACU ORDER PRN IV .PRURITUS; Start 04/27/19 at 07:30; Stop 04/27/19 at 12:00 Metronidazole 100 ml @ 100 mls/hr Q8 IVPB ; Start 04/27/19 at 14:00 Piperacillin Sod/ Tazobactam Sod 100 ml @ 200 mls/hr Q6 IVPB ; Start 04/27/19 at 12:00 Ondansetron HCl (Zofran Inj) 4 mg Q6H PRN IV NAUSEA AND/OR VOMITING; Start 04/27/19 at 09:00 Acetaminophen (Tylenol Tab) 650 mg Q6H PRN PO PAIN LEVEL 1-3 OR FEVER; Start 04/27/19 at 09:00 Ibuprofen (Motrin) 600 mg Q6H PRN PO PAIN LEVEL 1-3; Start 04/30/19 at 09:00 Ketorolac Tromethamine (Toradol) 30 mg Q6H PRN IV PAIN; Start 04/27/19 at 09:00; Stop 04/30/19 at 08:59 Morphine Sulfate (morphine) 2 mg Q2H PRN IV PAIN LEVEL 8-10; Start 04/27/19 at 09:00 Acetaminophen/ Hydrocodone Bitart ([place] (5/325)) 1 tab Q6H PRN PO PAIN LEVEL 4-7; Start 04/27/19 at 09:00 Potassium Chloride/Dextrose/ Sod Cl 1,000 ml @ 100 mls/hr Q10H IV Last administered on 04/27/19at 10:22; Admin Dose 100 MLS/HR; Start 04/27/19 at 08:52 Diphenhydramine HCl (Benadryl) 25 mg Q6H PRN PO PRURITUS; Start 04/27/19 at 09:00 WENDI BELL MD Apr 27, 2019 11:47
[2019-04-27] MEDS: PIPER-TAZO 3.375 GM IV (PMX) 100 ML IVPB SCH ×2 (12:16→17:24)
[2019-04-27] MEDS: KETOROLAC 30 MG INJ IV PRN ×2 (12:17→18:19)
--- NOTE | 2019-04-27 12:51 | OPR ---
Date/Time of Note Date/Time of Note DATE: 04/27/19 TIME: 12:42 Operative Report Procedure Date: Apr 27, 2019 Preoperative Diagnosis Intra-abdominal abscess, perforated diverticulitis. Postoperative Diagnosis Intra-abdominal abscess, perforated the diverticulitis versus perforated appendicitis. Operation/Procedure Performed Exploratory laparoscopy, drainage of the intra-abdominal abscess, appendectomy. Surgeon see signature line Power Tool Repair Technician None Anesthesia Type: general Anesthesiologist: MIGDALIA JAMES MD Estimated Blood Loss: 10 - 50 ml's Transfusion none Specimen None Grafts/Implants none Tubes/Drains JANNETTE drain Complications none Pt Condition Post Procedure: stable Disposition: PACU Indications The Patient with Diverticulitis with intra-abdominal abscess not feasible percutaneous drainage by invasive radiology radiology. We discussed risks and benefits were discussed possible side effects, possible complications including but not limited to bleeding, infection, injury to other organs, anesthesia complication, patient understood risk and benefits and wished to proceed. Procedure Description Patient was brought to the operating room and positioned supine. General endotracheal anesthesia was induced abdomen was prepped and draped in usual sterile fashion before that anesthesiologist performed the bilateral tap block. After that the timeout was performed and pneumoperitoneum was created by placing a Veress needle in the left position. After intra-abdominal pressure reached 15 mmHg I placed 3 5 mm trochars in the right abdomen. I used-5 mm 50 degrees scope. I explored the abdominal cavity the findings were that in the left lower quadrant there a few loops of small bowel densely adherent to the loop of the sigmoid lead omentum covering the inflammatory mass. In addition I found the appendix extending from the cecum to the the inflammatory mass. The tip of the appendix was buried underneath the sigmoid mass. It was unclear whether that the inflammatory changes originating from the sigmoid or perforated tip of appendix, which was intimately adjacent to the cecum. I mobilized the omentum bluntly off the cecum and the loop of the small bowel of the cecum and the tip of the appendix. The abscess cavity was entered and past was evacuated. After that the decision was made to perform appendectomy. No free sigmoid perforation was found. The base of the appendix was divided using endoscopic stapler with vascular load. For this reason 1 of the 5 mm trochars was exchanged to 12 mm trocar. I used 2 more additional firing of the same stapler to divide the mesentery of the appendix. The tip of the appendix was bluntly dissected off the abscess cavity. The appendix was removed through the 12 mm trocar after that the abscess was irrigated with with saline and 19 [place] drain was placed through 1 of the 5 mm trocars towards the abscess cavity and tip was placed into the cavity. After that hemostasis was confirmed,. Pneumoperitoneum was released and trocars were removed. 12 mm trocar was closed using 0 Vicryl for the fascia and 3-0 Monocryl to the skin, the rest of the trocArs were closed just using 3-0 Monocryl for the skin. The drain was secured to the skin with nylon suture. Patient tolerated procedure well was extubated transferred to recovery room. Instrument and sponges counts were correct x2. ELIAS CEDENO MD Apr 27, 2019 12:51
[2019-04-27] MEDS: metroNIDAZOLE 500 MG/NS (PMX) 100 ML IVPB SCH ×2 (13:25→20:40)
--- NOTE | 2019-04-27 17:50 | CONS ---
DATE OF ADMISSION: 04/25/2019 DATE OF CONSULTATION: 04/27/2019 TYPE OF CONSULTATION: Infectious disease. REASON FOR CONSULTATION: Antibiotic management. HISTORY OF PRESENT ILLNESS: Toby Clarke is a 43-year-old male with no past medical history who comes in with severe abdominal pain of several weeks' duration. It began in the lower periumbilical regio n and has both left and right quadrant pain. CT scan of the abdomen performed indicated diverticulit is. He was started on ciprofloxacin and Flagyl. He underwent an outpatient colonoscopy on 9 one week ago. He was placed on further continuation of the antibiotics. Dose was changed from 500 to 250. The patient also has a history of shingles. On admission, his white count was 11.4, H and H of 13.7 and 40.8, platelet count 434,000. BUN and creatinine is 10/0.96. His CT scan showed air a nd fluid in the low mid abdomen measuring 3.2 x 5.3 x 3.1 cm. The appendix was very coarse. Neutrop hils were 69%. The patient had a CT scan of the abdomen with IV contrast and showed air fluid collec tion in the lower mid abdomen measuring 3.2 x 5.3 x 3.1 and the thought was that he had a ruptured ap pendix. HOSPITAL COURSE: The patient had an intraabdominal abscess from perforated diverticulum, exploratory laparoscopy, drainage of the intraabdominal abscess and an appendectomy was done today, so he has in traabdominal abscess, perforated diverticulum versus perforated appendix. Drainage of the intraabdom inal abscess and appendectomy was done. PHYSICAL EXAMINATION: GENERAL: The patient is well-developed, well-nourished male, currently in no acute distress. VITAL SIGNS: Stable. He is afebrile. SKIN: Without generalized rash. HEENT: Within normal limits. NECK: Supple. LYMPH NODES: None palpable. CHEST: Decreased breath sounds at the bases. HEART: Without murmur or gallop. ABDOMEN: Status post surgery. EXTREMITIES: Without cyanosis, clubbing or edema. RECTAL AND GENITAL: Deferred. NEUROLOGIC: No focal neurological abnormality. IMPRESSION AND PLAN: The patient is currently on Zosyn and Flagyl. We will continue the patient on current therapy. I will dictate my findings to Dr. Mendoza and to Dr. Phu. Dictated By: MADELINE RING MD, JD/FABIENNE Conf#: [id number] DID#: [id number] CC: LILI LOPEZ MD; SURESH SINGH MD;*EndCC*
--- NOTE | 2019-04-27 18:36 | CONS ---
Assessment/Plan Assessment/Plan Assessment/Plan (Daily) STORY OF PRESENT ILLNESS: The patient is a 43-year-old male with a history of diverticulitis, last episode was 4 months ago, came to the emergency room complaining of pain in the lower quadrant which started acutely. The patient had emergency CAT scan done which showed abscess collection. The radiologist was not certain whether it is due to the diverticular rupture or due to the appendiceal rupture. The patient had a colonoscopy done 7 days ago, and at that point, there was a segmental colitis, but no fresh diverticulitis was identified. So, the patient is admitted for further management and treatment. The patient was evaluated by the surgeon. Since the radiologist could not drain the abscess in outpatient, he is scheduled for surgery. This information, I got from the patient and the staff nurse. PAST MEDICAL HISTORY: History of diverticulosis and diverticulitis. HOME MEDICATIONS: 1. Cipro. 2. Flagyl. 3. Dicyclomine. SOCIAL HISTORY: Negative for smoking, alcohol or drug abuse. FAMILY HISTORY: Nothing contributory. PHYSICAL EXAMINATION: GENERAL: Well-built, nourished, not in distress. VITAL SIGNS: Stable. HEENT: Unremarkable. NECK: Supple. No thyromegaly, no lymphadenopathy. CARDIOVASCULAR: No murmur, gallop or click. LUNGS: Clear. ABDOMEN: Benign except for mild tenderness in suprapubic area. LUNGS: Clear. EXTREMITIES: No edema. CENTRAL NERVOUS SYSTEM: Grossly within normal. LABORATORY DATA: WBC dropped down from 11.4 to 9.4. IMPRESSION: 1. Abscess, suprapubic area, diverticular versus appendiceal. 2. Mild leukocytosis. 3. Patient had a laparoscopic drainage of the area appendicular abscess and removal of the appendix Plan Continue postoperative care and antibiotic PLAN: NPO. Continue antibiotic and surgical followup. Consultation Date/Type/Reason Admit Date/Time Apr 25, 2019 at 21:01 Initial Consult Date 04/26/19 Date/Time of Note DATE: 04/27/19 TIME: 18:35 24 HR Interval Summary Constitutional: improved Exam/Review of Systems Exam Vitals Vital Signs Date Temp Pulse Resp B/P (MAP) Pulse Ox O2 O2 Flow FiO2 Time Delivery Rate 04/27/19 98.2 62 18 131/89 99 Room Air 14:15 (103) Intake and Output 04/26/19 04/26/19 04/27/19 1515:00 23:00 07:00 IntakeIntake Total 700 ml 640 ml 1310 ml OutputOutput Total 400 ml 400 ml 600 ml BalanceBalance 300 ml 240 ml 710 ml Constitutional: alert, oriented, well developed Psych: no complaints, nl mood/affect Head: normocephalic, atraumatic Eyes: nl conjunctiva, EOMI, nl lids, nl sclera, PERRL ENMT: nl external ears & nose, nl lips & teeth, nl nasal mucosa & septum Neck: supple, non-tender Respiratory: clear to auscultation, normal air movement Cardiovascular: regular rate and rhythm, nl pulses Gastrointestinal: soft, nl liver, spleen, non-tender Musculoskeletal: nl extremities to inspection, nl gait and stance Extremities: normal pulses Neurological: [employer] II-XII intact, nl mental status, nl speech, nl strength Skin: nl turgor; No rash or lesions Lymph: nl lymph nodes Results Result Diagram: 04/27/19 0436 04/26/19 0418 Results 24hrs Laboratory Tests Test 04/27/19 04:36 White Blood Count 5.6 # Red Blood Count 4.30 L Hemoglobin 12.8 L Hematocrit 36.9 L Mean Corpuscular Volume 85.8 Mean Corpuscular Hemoglobin 29.8 Mean Corpuscular Hemoglobin Concent 34.7 Red Cell Distribution Width 11.9 Platelet Count 395 Mean Platelet Volume 9.1 Immature Granulocytes % 0.700 H Neutrophils % 38.3 L Lymphocytes % 39.9 Monocytes % 15.5 H Eosinophils % 4.7 Basophils % 0.9 Nucleated Red Blood Cells % 0.0 Immature Granulocytes # 0.040 H Neutrophils # 2.1 Lymphocytes # 2.2 Monocytes # 0.9 Eosinophils # 0.3 Basophils # 0.1 Nucleated Red Blood Cells # 0.0 Medications Medication Current Medications Dextrose/Sodium Chloride 1,000 ml @ 80 mls/hr [id number] IV Last administered on 04/27/19at 00:36; Admin Dose 80 MLS/HR; Start 04/25/19 at 21:23 IV Flush (NS 3 ml) 3 ml PER PROTOCOL IV ; Start 04/25/19 at 21:30 Ondansetron HCl (Zofran Inj) 4 mg Q6H PRN IV NAUSEA/VOMITING; Start 04/25/19 at 21:30 Acetaminophen (Tylenol Supp) 650 mg Q6H PRN [place] .PAIN 1-3 OR TEMP; Start 04/25/19 at 21:30 Morphine Sulfate (morphine) 2 mg Q4H PRN IV .SEVERE PAIN 7-10 Last administered on 04/27/19at 14:47; Admin Dose 2 MG; Start 04/25/19 at 21:30 Docusate Sodium (Colace) 100 mg Q12H PRN PO .CONSTIPATION; Start 04/25/19 at 21:30 Magnesium Hydroxide (Milk Of Mag) 30 ml DAILY PRN PO .CONSTIPATION; Start 04/25/19 at 21:30 Famotidine (Pepcid Iv) 20 mg BID IV Last administered on 04/26/19at 21:05; Admin Dose 20 MG; Start 04/26/19 at 09:00 Metronidazole 100 ml @ 100 mls/hr Q8 IVPB Last administered on 04/27/19at 13:25; Admin Dose 100 MLS/HR; Start 04/27/19 at 14:00 Piperacillin Sod/ Tazobactam Sod 100 ml @ 200 mls/hr Q6 IVPB Last administered on 04/27/19at 17:24; Admin Dose 200 MLS/HR; Start 04/27/19 at 12:00 Ondansetron HCl (Zofran Inj) 4 mg Q6H PRN IV NAUSEA AND/OR VOMITING; Start 04/27/19 at 09:00 Acetaminophen (Tylenol Tab) 650 mg Q6H PRN PO PAIN LEVEL 1-3 OR FEVER; Start 04/27/19 at 09:00 Ibuprofen (Motrin) 600 mg Q6H PRN PO PAIN LEVEL 1-3; Start 04/30/19 at 09:00 Ketorolac Tromethamine (Toradol) 30 mg Q6H PRN IV PAIN Last administered on 04/27/19at 18:19; Admin Dose 30 MG; Start 04/27/19 at 09:00; Stop 04/30/19 at 08:59 Morphine Sulfate (morphine) 2 mg Q2H PRN IV PAIN LEVEL 8-10; Start 04/27/19 at 09:00 Acetaminophen/ Hydrocodone Bitart ([place] (5/325)) 1 tab Q6H PRN PO PAIN LEVEL 4-7; Start 04/27/19 at 09:00 Potassium Chloride/Dextrose/ Sod Cl 1,000 ml @ 100 mls/hr Q10H IV Last adm inistered on 04/27/19at 10:22; Admin Dose 100 MLS/HR; Start 04/27/19 at 08:52 Diphenhydramine HCl (Benadryl) 25 mg Q6H PRN PO PRURITUS; Start 04/27/19 at 09:00 LILI LOPEZ MD Apr 27, 2019 18:36
[2019-04-27] MEDS: HYDROCODONE/APAP (5/325) TAB PO PRN (21:40)
[2019-04-28 00:57] VITALS: BP 118/62; PULSE 60; RESP 17
[2019-04-28] MEDS: KETOROLAC 30 MG INJ IV PRN ×4 (01:05→21:26)
[2019-04-28] MEDS: PIPER-TAZO 3.375 GM IV (PMX) 100 ML IVPB SCH ×5 (01:43→23:29)
[2019-04-28] MEDS: DEXTROSE 5%-0.45% NACL 1,000 ML IV SCH ×2 (01:43→11:40)
[2019-04-28] MEDS: D5W-0.45 NACL + KCL 20 MEQ 1,000 ML IV SCH ×2 (04:52→18:01)
[2019-04-28] MEDS: MAGNESIUM HYDROXIDE 30ML CUP PO PRN (06:46)
[2019-04-28] MEDS: DOCUSATE SODIUM 100 MG CAP PO PRN (06:46)
[2019-04-28 07:17] VITALS: BP 130/83; PULSE 59; RESP 18
[2019-04-28] MEDS: metroNIDAZOLE 500 MG/NS (PMX) 100 ML IVPB SCH ×3 (07:25→21:32)
[2019-04-28] MEDS: HYDROCODONE/APAP (5/325) TAB PO PRN ×2 (09:43→16:14)
[2019-04-28] MEDS: morphine 2 MG INJ IV PRN ×3 (11:53→23:30)
--- NOTE | 2019-04-28 11:53 | CONS ---
Assessment/Plan Assessment/Plan Hospital Course (Demo Recall) ID PROGRESS NOTE CURRENT ABX: DAY # =>Zosyn + Flagyl 04/28/19 0449 04/28/19 0449 24H INTERVAL SUMMARY * POD #1-> S/P 04/27/2019 Exploratory laparoscopy, drainage of the intra- abdominal abscess, appendectomy. * Doing well post operatively --OOB-> ambulated today -- was painful yet he was able to do it * Feels constipated -- taking clears passed small gas now feels bloated * TMax 100.6 today DIAGNOSTIC IMAGING * 04/25/19 CT ABD-PEL: There is an air and fluid collection suggestive of abscess measuring 3.2 x 5.3 x 3.1 cm in the lower mid abdomen. The appendix appears to course towards the collection, suggestive of ruptured appendicitis. However, there is also sigmoid colon diverticulitis which also abuts the inferior margin of the collection, and diverticular abscess is not totally excluded. If clinically indicated, consider further evaluation with CT abdomen pelvis with oral contrast. PHYSICAL EXAMINATION: GENERAL: VSS, NAD HEENT: AT, NC, NECK: Supple, CHEST: Rise symmetrical HEART: Pulse RRR ABDOMEN: Hypoactive BS EXTREMITIES: Warm, dry SKIN: No rash, no diaphoresis ID ASSESSMENT 43 yo M admit with: 1. SIRS on admission w/TMax 100.0, leukocytosis due to #2 2. Severe lower abdominal pain with a CT of the abdomen and pelvis showing an air and fluid collection suggestive of abscess, 3.2 x 5.3 cm x 3.1 cm. * Intra-abdominal abscess, perforated the diverticulitis versus perforated appendicitis. * POD #1-> s/p Exploratory laparoscopy, drainage of the intra-abdominal abscess, appendectomy on 04/27/19 3. History of diverticulosis, status post diverticulitis already treated with p.o. antibiotics. 4. History of colitis. ABX ALLERGIES: KNDA INVASIVES: PIV CURRENT ABX: DAY # =>Zosyn + Flagyl ID RECOMMENDATIONS/PLAN: 1. Continue current ABX 2. He is requesting laxative -- I advised him that this must be ordered/cleared by surgeon and/or primary Consultation Date/Type/Reason Admit Date/Time Apr 25, 2019 at 21:01 Initial Consult Date 04/26/19 Date/Time of Note DATE: 04/28/19 TIME: 11:44 Exam/Review of Systems Exam Vitals Vital Signs Date Temp Pulse Resp B/P (MAP) Pulse Ox O2 O2 Flow FiO2 Time Delivery Rate 04/28/19 98.6 59 18 130/83 99 07:17 (99) 04/28/19 Room Air 00:57 Intake and Output 04/27/19 04/27/19 04/28/19 1414:59 22:59 06:59 IntakeIntake Total 1400 ml 800 ml 940 ml OutputOutput Total 830 ml 450 ml 600 ml BalanceBalance 570 ml 350 ml 340 ml Results Result Diagram: 04/28/19 0449 04/28/19 0449 Results 24hrs Laboratory Tests Test 04/28/19 04:49 White Blood Count 12.7 #H Red Blood Count 4.47 L Hemoglobin 12.8 L Hematocrit 37.5 L Mean Corpuscular Volume 83.9 Mean Corpuscular Hemoglobin 28.6 L Mean Corpuscular Hemoglobin Concent 34.1 Red Cell Distribution Width 11.9 Platelet Count 439 H Mean Platelet Volume 9.4 Immature Granulocytes % 0.400 Neutrophils % 79.6 H Lymphocytes % 11.0 L Monocytes % 8.8 Eosinophils % 0.0 Basophils % 0.2 Nucleated Red Blood Cells % 0.0 Immature Granulocytes # 0.050 H Neutrophils # 10.1 H Lymphocytes # 1.4 Monocytes # 1.1 H Eosinophils # 0.0 Basophils # 0.0 Nucleated Red Blood Cells # 0.0 Sodium Level 141 Potassium Level 3.9 Chloride Level 105 Carbon Dioxide Level 25 Anion Gap 11 Blood Urea Nitrogen 8 Creatinine 0.90 Est Glomerular Filtrat Rate mL/min > 60 Glucose Level 119 Calcium Level 9.0 Phosphorus Level 4.9 Magnesium Level 2.0 Total Bilirubin 0.4 Direct Bilirubin 0.00 Indirect Bilirubin 0.4 Aspartate Amino Transf (AST/SGOT) 15 Alanine Aminotransferase (ALT/SGPT) 13 Alkaline Phosphatase 43 Total Protein 7.1 Albumin 3.5 Globulin 3.60 H Albumin/Globulin Ratio 0.97 Medications Medication Current Medications Dextrose/Sodium Chloride 1,000 ml @ 80 mls/hr [id number] IV Last administered on 04/28/19at 01:43; Admin Dose 80 MLS/HR; Start 04/25/19 at 21:23 IV Flush (NS 3 ml) 3 ml PER PROTOCOL IV ; Start 04/25/19 at 21:30 Ondansetron HCl (Zofran Inj) 4 mg Q6H PRN IV NAUSEA/VOMITING; Start 04/25/19 at 21:30 Acetaminophen (Tylenol Supp) 650 mg Q6H PRN [place] .PAIN 1-3 OR TEMP; Start 04/25/19 at 21:30 Morphine Sulfate (morphine) 2 mg Q4H PRN IV .SEVERE PAIN 7-10 Last administered on 04/27/19 20:36; Admin Dose 2 MG; Start 04/25/19 at 21:30 Docusate Sodium (Colace) 100 mg Q12H PRN PO .CONSTIPATION Last administered on 04/28/19 06:46; Admin Dose 100 MG; Start 04/25/19 at 21:30 Magnesium Hydroxide (Milk Of Mag) 30 ml DAILY PRN PO .CONSTIPATION Last administered on 04/28/19 06:46; Admin Dose 30 ML; Start 04/25/19 at 21:30 Famotidine (Pepcid Iv) 20 mg BID IV Last administered on 04/27/19at 21:40; Admin Dose 20 MG; Start 04/26/19 at 09:00 Metronidazole 100 ml @ 100 mls/hr Q8 IVPB Last administered on 04/28/19 07:25; Admin Dose 100 MLS/HR; Start 04/27/19 at 14:00 Piperacillin Sod/ Tazobactam Sod 100 ml @ 200 mls/hr Q6 IVPB Last administered on 04/28/19 11:37; Admin Dose 200 MLS/HR; Start 04/27/19 at 12:00 Ondansetron HCl (Zofran Inj) 4 mg Q6H PRN IV NAUSEA AND/OR VOMITING; Start 04/27/19 at 09:00 Acetaminophen (Tylenol Tab) 650 mg Q6H PRN PO PAIN LEVEL 1-3 OR FEVER; Start 04/27/19 at 09:00 Ibuprofen (Motrin) 600 mg Q6H PRN PO PAIN LEVEL 1-3; Start 04/30/19 at 09:00 Ketorolac Tromethamine (Toradol) 30 mg Q6H PRN IV PAIN Last administered on 04/28/19 07:01; Admin Dose 30 MG; Start 04/27/19 at 09:00; Stop 04/30/19 at 08:59 Morphine Sulfate (morphine) 2 mg Q2H PRN IV PAIN LEVEL 8-10; Start 04/27/19 at 09:00 Acetaminophen/ Hydrocodone Bitart ([place] (5/325)) 1 tab Q6H PRN PO PAIN LEVEL 4-7 Last administered on 04/28/19at 09:43; Admin Dose 1 TAB; Start 04/27/19 at 09:00 Potassium Chloride/Dextrose/ Sod Cl 1,000 ml @ 100 mls/hr Q10H IV Last administered on 04/27/19at 10:22; Admin Dose 100 MLS/HR; Start 04/27/19 at 08:52 Diphenhydramine HCl (Benadryl) 25 mg Q6H PRN PO PRURITUS; Start 04/27/19 at 09:00 HEDY ANGUIANO NP Apr 28, 2019 11:53
--- NOTE | 2019-04-28 12:17 | PN ---
Date/Time of Note Date/Time of Note DATE: 04/28/19 TIME: 12:13 Assessment/Plan VTE Prophylaxis Risk score (from [facility])>0 risk: 3 SCD applied (from [facility]): Yes Pharmacological prophylaxis: NA/contraindicated Pharm contraindication: low risk/ambulating Lines/Catheters IV C[facility] Type (from [facility]): Peripheral IV Assessment/Plan Assessment/Plan 43-year-old male presented with: 1. Severe lower abdominal pain with a CT of the abdomen and pelvis showing an air and fluid collection suggestive of abscess, 3.2 x 5.3 cm x 3.1 cm. Could be secondary to ruptured appendicitis/sigmoid ruptured diverticulitis. s/p Exploratory laparoscopy, drainage of the intra-abdominal abscess, appendectomy on 04/27/19 2. History of diverticulosis, status post diverticulitis already treated with p.o. antibiotics. 3. History of colitis. 4. Leukocytosis secondary to #1. Plan - WILL FU post op cultures not resulted - Clear liquid diet - decrease fluids - WBC 12> montior - Post op care, pain control - iv zosyn/flagyl - GI./DVT prophylaxsis Result Diagram: 04/28/1944804/28/199 Results 24hrs Laboratory Tests Test 04/28/19 04:49 White Blood Count 12.7 #H Red Blood Count 4.47 L Hemoglobin 12.8 L Hematocrit 37.5 L Mean Corpuscular Volume 83.9 Mean Corpuscular Hemoglobin 28.6 L Mean Corpuscular Hemoglobin Concent 34.1 Red Cell Distribution Width 11.9 Platelet Count 439 H Mean Platelet Volume 9.4 Immature Granulocytes % 0.400 Neutrophils % 79.6 H Lymphocytes % 11.0 L Monocytes % 8.8 Eosinophils % 0.0 Basophils % 0.2 Nucleated Red Blood Cells % 0.0 Immature Granulocytes # 0.050 H Neutrophils # 10.1 H Lymphocytes # 1.4 Monocytes # 1.1 H Eosinophils # 0.0 Basophils # 0.0 Nucleated Red Blood Cells # 0.0 Sodium Level 141 Potassium Level 3.9 Chloride Level 105 Carbon Dioxide Level 25 Anion Gap 11 Blood Urea Nitrogen 8 Creatinine 0.90 Est Glomerular Filtrat Rate mL/min > 60 Glucose Level 119 Calcium Level 9.0 Phosphorus Level 4.9 Magnesium Level 2.0 Total Bilirubin 0.4 Direct Bilirubin 0.00 Indirect Bilirubin 0.4 Aspartate Amino Transf (AST/SGOT) 15 Alanine Aminotransferase (ALT/SGPT) 13 Alkaline Phosphatase 43 Total Protein 7.1 Albumin 3.5 Globulin 3.60 H Albumin/Globulin Ratio 0.97 Subjective 24 Hr Interval Summary Free Text/Dictation Still has the pain at the surgical site Passed gas today no BM yet Exam/Review of Systems Exam Vitals Vital Signs Date Temp Pulse Resp B/P (MAP) Pulse Ox O2 O2 Flow FiO2 Time Delivery Rate 04/28/19 98.6 59 18 130/83 99 07:17 (99) 04/28/19 Room Air 00:57 Intake and Output 04/27/19 04/27/19 04/28/19 1515:00 23:00 07:00 IntakeIntake Total 1400 ml 800 ml 940 ml OutputOutput Total 830 ml 450 ml 600 ml BalanceBalance 570 ml 350 ml 340 ml Exam ENERAL: The patient is awake, alert, oriented, does not appear to be in any acute distress with mild pain. HEENT: Normocephalic, atraumatic. NECK: Supple. No rigidity. CHEST: Clear to auscultate bilaterally. ABDOMEN: Incisional pain . JANNETTE drain, +hypoactive EXTREMITIES: No clubbing, cyanosis, or edema. NEUROLOGIC: Awake, alert, oriented, follows all commands, no weakness. Results Results 24hrs Laboratory Tests Test 04/28/19 04:49 White Blood Count 12.7 #H Red Blood Count 4.47 L Hemoglobin 12.8 L Hematocrit 37.5 L Mean Corpuscular Volume 83.9 Mean Corpuscular Hemoglobin 28.6 L Mean Corpuscular Hemoglobin Concent 34.1 Red Cell Distribution Width 11.9 Platelet Count 439 H Mean Platelet Volume 9.4 Immature Granulocytes % 0.400 Neutrophils % 79.6 H Lymphocytes % 11.0 L Monocytes % 8.8 Eosinophils % 0.0 Basophils % 0.2 Nucleated Red Blood Cells % 0.0 Immature Granulocytes # 0.050 H Neutrophils # 10.1 H Lymphocytes # 1.4 Monocytes # 1.1 H Eosinophils # 0.0 Basophils # 0.0 Nucleated Red Blood Cells # 0.0 Sodium Level 141 Potassium Level 3.9 Chloride Level 105 Carbon Dioxide Level 25 Anion Gap 11 Blood Urea Nitrogen 8 Creatinine 0.90 Est Glomerular Filtrat Rate mL/min > 60 Glucose Level 119 Calcium Level 9.0 Phosphorus Level 4.9 Magnesium Level 2.0 Total Bilirubin 0.4 Direct Bilirubin 0.00 Indirect Bilirubin 0.4 Aspartate Amino Transf (AST/SGOT) 15 Alanine Aminotransferase (ALT/SGPT) 13 Alkaline Phosphatase 43 Total Protein 7.1 Albumin 3.5 Globulin 3.60 H Albumin/Globulin Ratio 0.97 Medications Medication Current Medications Dextrose/Sodium Chloride 1,000 ml @ 80 mls/hr [id number] IV Last administered on 04/28/19 01:43; Admin Dose 80 MLS/HR; Start 04/25/19 at 21:23 IV Flush (NS 3 ml) 3 ml PER PROTOCOL IV ; Start 04/25/19 at 21:30 Ondansetron HCl (Zofran Inj) 4 mg Q6H PRN IV NAUSEA/VOMITING; Start 04/25/19 at 21:30 Acetaminophen (Tylenol Supp) 650 mg Q6H PRN [place] .PAIN 1-3 OR TEMP; Start 04/25/19 at 21:30 Morphine Sulfate (morphine) 2 mg Q4H PRN IV .SEVERE PAIN 7-10 Last administered on 04/28/19 11:53; Admin Dose 2 MG; Start 04/25/19 at 21:30 Docusate Sodium (Colace) 100 mg Q12H PRN PO .CONSTIPATION Last administered on 04/28/19 06:46; Admin Dose 100 MG; Start 04/25/19 at 21:30 Magnesium Hydroxide (Milk Of Mag) 30 ml DAILY PRN PO .CONSTIPATION Last administered on 04/28/19 06:46; Admin Dose 30 ML; Start 04/25/19 at 21:30 Famotidine (Pepcid Iv) 20 mg BID IV Last administered on 04/27/19 21:40; Admin Dose 20 MG; Start 04/26/19 at 09:00 Metronidazole 100 ml @ 100 mls/hr Q8 IVPB Last administered on 04/28/19 07:25; Admin Dose 100 MLS/HR; Start 04/27/19 at 14:00 Piperacillin Sod/ Tazobactam Sod 100 ml @ 200 mls/hr Q6 IVPB Last administered on 04/28/19 11:37; Admin Dose 200 MLS/HR; Start 04/27/19 at 12:00 Ondansetron HCl (Zofran Inj) 4 mg Q6H PRN IV NAUSEA AND/OR VOMITING; Start 04/27/19 at 09:00 Acetaminophen (Tylenol Tab) 650 mg Q6H PRN PO PAIN LEVEL 1-3 OR FEVER; Start 04/27/19 at 09:00 Ibuprofen (Motrin) 600 mg Q6H PRN PO PAIN LEVEL 1-3; Start 04/30/19 at 09:00 Ketorolac Tromethamine (Toradol) 30 mg Q6H PRN IV PAIN Last administered on 04/28/19at 07:01; Admin Dose 30 MG; Start 04/27/19 at 09:00; Stop 04/30/19 at 08:59 Morphine Sulfate (morphine) 2 mg Q2H PRN IV PAIN LEVEL 8-10; Start 04/27/19 at 09:00 Acetaminophen/ Hydrocodone Bitart ([place] (5/325)) 1 tab Q6H PRN PO PAIN LEVEL 4-7 Last administered on 04/28/19at 09:43; Admin Dose 1 TAB; Start 04/27/19 at 09:00 Potassium Chloride/Dextrose/ Sod Cl 1,000 ml @ 100 mls/hr Q10H IV Last administered on 04/27/19at 10:22; Admin Dose 100 MLS/HR; Start 04/27/19 at 08:52 Diphenhydramine HCl (Benadryl) 25 mg Q6H PRN PO PRURITUS; Start 04/27/19 at 09:00 WENDI BELL MD Apr 28, 2019 12:17
--- NOTE | 2019-04-28 14:32 | CONS ---
Assessment/Plan Assessment/Plan Assessment/Plan (Daily) IMPRESSION: 1. Abscess, suprapubic area, diverticular versus appendiceal. 2. Mild leukocytosis. 3. Patient had a laparoscopic drainage of the area appendicular abscess and removal of the appendix 4. The drain has brown discolored liquidy stool with a sediments stool in the sediments cannot be absolutely ruled out Plan Continue postoperative care and antibiotic PLAN: NPO. Continue antibiotic and surgical followup. Consultation Date/Type/Reason Admit Date/Time Apr 25, 2019 at 21:01 Initial Consult Date 04/26/19 Date/Time of Note DATE: 04/28/19 TIME: 14:30 24 HR Interval Summary Free Text/Dictation Complains of mild abdominal discomfort Exam/Review of Systems Exam Vitals Vital Signs Date Temp Pulse Resp B/P (MAP) Pulse Ox O2 O2 Flow FiO2 Time Delivery Rate 04/28/19 100.6 14:21 04/28/19 59 18 130/83 99 07:17 (99) 04/28/19 Room Air 00:57 Intake and Output 04/27/19 04/27/19 04/28/19 1515:00 23:00 07:00 IntakeIntake Total 1400 ml 800 ml 940 ml OutputOutput Total 830 ml 450 ml 600 ml BalanceBalance 570 ml 350 ml 340 ml Constitutional: alert, oriented Neck: supple, non-tender Cardiovascular: regular rate and rhythm, nl pulses Gastrointestinal: soft, nl liver, spleen, non-tender Extremities: normal pulses Results Result Diagram: 04/28/19 0449 04/28/19 0449 Results 24hrs Laboratory Tests Test 04/28/19 04:49 White Blood Count 12.7 #H Red Blood Count 4.47 L Hemoglobin 12.8 L Hematocrit 37.5 L Mean Corpuscular Volume 83.9 Mean Corpuscular Hemoglobin 28.6 L Mean Corpuscular Hemoglobin Concent 34.1 Red Cell Distribution Width 11.9 Platelet Count 439 H Mean Platelet Volume 9.4 Immature Granulocytes % 0.400 Neutrophils % 79.6 H Lymphocytes % 11.0 L Monocytes % 8.8 Eosinophils % 0.0 Basophils % 0.2 Nucleated Red Blood Cells % 0.0 Immature Granulocytes # 0.050 H Neutrophils # 10.1 H Lymphocytes # 1.4 Monocytes # 1.1 H Eosinophils # 0.0 Basophils # 0.0 Nucleated Red Blood Cells # 0.0 Sodium Level 141 Potassium Level 3.9 Chloride Level 105 Carbon Dioxide Level 25 Anion Gap 11 Blood Urea Nitrogen 8 Creatinine 0.90 Est Glomerular Filtrat Rate mL/min > 60 Glucose Level 119 Calcium Level 9.0 Phosphorus Level 4.9 Magnesium Level 2.0 Total Bilirubin 0.4 Direct Bilirubin 0.00 Indirect Bilirubin 0.4 Aspartate Amino Transf (AST/SGOT) 15 Alanine Aminotransferase (ALT/SGPT) 13 Alkaline Phosphatase 43 Total Protein 7.1 Albumin 3.5 Globulin 3.60 H Albumin/Globulin Ratio 0.97 Medications Medication Current Medications Dextrose/Sodium Chloride 1,000 ml @ 80 mls/hr [id number] IV Last administered on 04/28/19 01:43; Admin Dose 80 MLS/HR; Start 04/25/19 at 21:23 IV Flush (NS 3 ml) 3 ml PER PROTOCOL IV ; Start 04/25/19 at 21:30 Ondansetron HCl (Zofran Inj) 4 mg Q6H PRN IV NAUSEA/VOMITING; Start 04/25/19 at 21:30 Acetaminophen (Tylenol Supp) 650 mg Q6H PRN [place] .PAIN 1-3 OR TEMP; Start 04/25/19 at 21:30 Morphine Sulfate (morphine) 2 mg Q4H PRN IV .SEVERE PAIN 7-10 Last administered on 04/28/19 11:53; Admin Dose 2 MG; Start 04/25/19 at 21:30 Docusate Sodium (Colace) 100 mg Q12H PRN PO .CONSTIPATION Last administered on 04/28/19 06:46; Admin Dose 100 MG; Start 04/25/19 at 21:30 Magnesium Hydroxide (Milk Of Mag) 30 ml DAILY PRN PO .CONSTIPATION Last administered on 04/28/19 06:46; Admin Dose 30 ML; Start 04/25/19 at 21:30 Famotidine (Pepcid Iv) 20 mg BID IV Last administered on 04/27/19 21:40; Admin Dose 20 MG; Start 04/26/19 at 09:00 Metronidazole 100 ml @ 100 mls/hr Q8 IVPB Last administered on 04/28/19 13:36; Admin Dose 100 MLS/HR; Start 04/27/19 at 14:00 Piperacillin Sod/ Tazobactam Sod 100 ml @ 200 mls/hr Q6 IVPB Last administered on 04/28/19 11:37; Admin Dose 200 MLS/HR; Start 04/27/19 at 12:00 Ondansetron HCl (Zofran Inj) 4 mg Q6H PRN IV NAUSEA AND/OR VOMITING; Start 04/27/19 at 09:00 Acetaminophen (Tylenol Tab) 650 mg Q6H PRN PO PAIN LEVEL 1-3 OR FEVER Last administered on 04/28/19 13:36; Admin Dose 650 MG; Start 04/27/19 at 09:00 Ibuprofen (Motrin) 600 mg Q6H PRN PO PAIN LEVEL 1-3; Start 04/30/19 at 09:00 Ketorolac Tromethamine (Toradol) 30 mg Q6H PRN IV PAIN Last administered on 04/28/19 14:08; Admin Dose 30 MG; Start 04/27/19 at 09:00; Stop 04/30/19 at 08:59 Morphine Sulfate (morphine) 2 mg Q2H PRN IV PAIN LEVEL 8-10; Start 04/27/19 at 09:00 Acetaminophen/ Hydrocodone Bitart ([place] (5/325)) 1 tab Q6H PRN PO PAIN LEVEL 4-7 Last administered on 04/28/19 09:43; Admin Dose 1 TAB; Start 04/27/19 at 09:00 Potassium Chloride/Dextrose/ Sod Cl 1,000 ml @ 50 mls/hr Q20H IV Last administered on 04/27/19 10:22; Admin Dose 100 MLS/HR; Start 04/27/19 at 08:52 Diphenhydramine HCl (Benadryl) 25 mg Q6H PRN PO PRURITUS; Start 04/27/19 at 09:00 LILI LOPEZ MD Apr 28, 2019 14:32
[2019-04-28 14:36] VITALS: BP 127/79; PULSE 62; RESP 18
--- NOTE | 2019-04-28 16:02 | PN ---
Date/Time of Note Date/Time of Note DATE: 04/28/19 TIME: 16:00 Assessment/Plan Lines/Catheters IV Catheter Type (from [facility]): Peripheral IV Subjective 24 Hr Interval Summary Patient is postop day 1 after laparoscopic drainage of the periappendicular/perforated diverticular abscess. The patient remains febrile. In addition the murky fluid started to drain out of the JANNETTE drain, possible bilious. On the physical exam abdomen is soft not tender, wounds clean. However given the bili was discharged from the JANNETTE drain the small versus large bowel fistula cannot be ruled out. If the drain persists till tomorrow the patient should be taken back to operating room for definite surgery; colectomy with the Valentin procedure versus colectomy with anastomosis and diverticular ostomy. I discussed with the patient risk and benefits of both procedures. Patient expressed understanding. We will reassess tomorrow morning Exam/Review of Systems Vital Signs Vitals Vital Signs Date Temp Pulse Resp B/P (MAP) Pulse Ox O2 O2 Flow FiO2 Time Delivery Rate 04/28/19 99.5 14:42 04/28/19 62 18 127/79 100 14:36 (95) 04/28/19 Room Air 00:57 Intake and Output 04/27/19 04/27/19 04/28/19 1414:59 22:59 06:59 IntakeIntake Total 1400 ml 800 ml 940 ml OutputOutput Total 830 ml 450 ml 600 ml BalanceBalance 570 ml 350 ml 340 ml Results Result Diagram: 04/28/19 0449 04/28/19 0449 ELIAS CEDENO MD Apr 28, 2019 16:02
[2019-04-28 19:50] VITALS: BP 127/83; PULSE 74; RESP 20
[2019-04-28] MEDS: FAMOTIDINE 20 MG INJ IV SCH (21:26)
[2019-04-29] VITALS (24 sets, daily range): BP systolic 130–181; BP diastolic 66–102; PULSE 62–96; RESP 12–20
[2019-04-29] MEDS: HYDROCODONE/APAP (5/325) TAB PO PRN ×4 (00:36→15:58)
[2019-04-29] MEDS: morphine 2 MG INJ IV PRN ×3 (02:17→23:00)
[2019-04-29] MEDS: KETOROLAC 30 MG INJ IV PRN ×2 (04:36→13:51)
[2019-04-29] MEDS: PIPER-TAZO 3.375 GM IV (PMX) 100 ML IVPB SCH ×3 (05:34→20:50)
[2019-04-29] MEDS: metroNIDAZOLE 500 MG/NS (PMX) 100 ML IVPB SCH ×3 (05:34→22:59)
[2019-04-29] MEDS: FAMOTIDINE 20 MG INJ IV SCH ×2 (09:29→20:50)
[2019-04-29] MEDS: MAGNESIUM HYDROXIDE 30ML CUP PO PRN (09:40)
[2019-04-29] MEDS: DOCUSATE SODIUM 100 MG CAP PO PRN (09:40)
--- NOTE | 2019-04-29 10:44 | CONS ---
Assessment/Plan Assessment/Plan Hospital Course (Demo Recall) ID PROGRESS NOTE CURRENT ABX: DAY # =>Zosyn + Flagyl 04/29/195 04/29/19 0435 24H INTERVAL SUMMARY * POD #2-> S/P 04/27/2019 Exploratory laparoscopy, drainage of the intra- abdominal abscess, appendectomy. * Tmax post op yesterday @ 101.0 -- afebrile so far today - WBC normalized * (+)ABD pain w/bloating gas --- ambulatory -- he started clears yesterday then felt ABD pain now NPO * Liquid brown drainage w/possible stool sediment in drain? -- Needs surgical evaluation DIAGNOSTIC IMAGING * 04/25/19 CT ABD-PEL: There is an air and fluid collection suggestive of abscess measuring 3.2 x 5.3 x 3.1 cm in the lower mid abdomen. The appendix appears to course towards the collection, suggestive of ruptured appendicitis. However, there is also sigmoid colon diverticulitis which also abuts the inferior margin of the collection, and diverticular abscess is not totally excluded. If clinically indicated, consider further evaluation with CT abdomen pelvis with oral contrast. PHYSICAL EXAMINATION: GENERAL: VSS, NAD HEENT: AT, NC, NECK: Supple, CHEST: Rise symmetrical HEART: Pulse RRR ABDOMEN: Hypoactive BS EXTREMITIES: Warm, dry SKIN: No rash, no diaphoresis ID ASSESSMENT 43 yo M admit with: 1. SIRS on admission w/TMax 100.0, leukocytosis due to #2 2. Severe lower abdominal pain with a CT of the abdomen and pelvis showing an air and fluid collection suggestive of abscess, 3.2 x 5.3 cm x 3.1 cm. * Intra-abdominal abscess, perforated the diverticulitis versus perforated appendicitis. * POD #2-> s/p Exploratory laparoscopy, drainage of the intra-abdominal abscess, appendectomy on 04/27/19 3. History of diverticulosis, status post diverticulitis already treated with p.o. antibiotics. 4. History of colitis. ABX ALLERGIES: KNDA INVASIVES: PIV CURRENT ABX: DAY # =>Zosyn + Flagyl ID RECOMMENDATIONS/PLAN: 1. Continue current ABX 2. NPO -- needs surgical evaluation of liquid brown drainage -- concern for fecal matter? Consultation Date/Type/Reason Admit Date/Time Apr 25, 2019 at 21:01 Initial Consult Date 04/26/19 Date/Time of Note DATE: 04/29/19 TIME: 10:40 Exam/Review of Systems Exam Vitals Vital Signs Date Temp Pulse Resp B/P (MAP) Pulse Ox O2 O2 Flow FiO2 Time Delivery Rate 04/29/19 98.3 66 18 133/97 96 Room Air 07:23 (109) Intake and Output 04/28/19 04/28/19 04/29/19 1515:00 23:00 07:00 IntakeIntake Total 400 ml 1000 ml 200 ml OutputOutput Total 230 ml 50 ml 535 ml BalanceBalance 170 ml 950 ml -335 ml Results Result Diagram: 04/29/19 0435 04/29/19 0435 Results 24hrs Laboratory Tests Test 04/29/19 04:35 White Blood Count 10.4 Red Blood Count 4.43 L Hemoglobin 13.0 L Hematocrit 37.5 L Mean Corpuscular Volume 84.7 Mean Corpuscular Hemoglobin 29.3 Mean Corpuscular Hemoglobin Concent 34.7 Red Cell Distribution Width 12.1 Platelet Count 377 Mean Platelet Volume 9.2 Immature Granulocytes % 0.600 H Neutrophils % 82.3 H Lymphocytes % 10.2 L Monocytes % 6.3 Eosinophils % 0.3 Basophils % 0.3 Nucleated Red Blood Cells % 0.0 Immature Granulocytes # 0.060 H Neutrophils # 8.6 H Lymphocytes # 1.1 Monocytes # 0.7 Eosinophils # 0.0 Basophils # 0.0 Nucleated Red Blood Cells # 0.0 Sodium Level 139 Potassium Level 4.0 Chloride Level 105 Carbon Dioxide Level 25 Anion Gap 9 Blood Urea Nitrogen 7 Creatinine 0.82 Est Glomerular Filtrat Rate mL/min > 60 Glucose Level 109 Calcium Level 8.5 Phosphorus Level 3.4 Magnesium Level 2.1 Total Bilirubin 0.5 Direct Bilirubin 0.00 Indirect Bilirubin 0.5 Aspartate Amino Transf (AST/SGOT) 19 Alanine Aminotransferase (ALT/SGPT) 18 Alkaline Phosphatase 49 Total Protein 7.2 Albumin 3.5 Globulin 3.70 H Albumin/Globulin Ratio 0.94 Medications Medication Current Medications IV Flush (NS 3 ml) 3 ml PER PROTOCOL IV Last administered on 04/28/19at 23:30; Admin Dose 3 ML; Start 04/25/19 at 21:30 Ondansetron HCl (Zofran Inj) 4 mg Q6H PRN IV NAUSEA/VOMITING; Start 04/25/19 at 21:30 Acetaminophen (Tylenol Supp) 650 mg Q6H PRN [place] .PAIN 1-3 OR TEMP; Start 04/25/19 at 21:30 Morphine Sulfate (morphine) 2 mg Q4H PRN IV .SEVERE PAIN 7-10 Last administered on 04/28/19 23:30; Admin Dose 2 MG; Start 04/25/19 at 21:30 Docusate Sodium (Colace) 100 mg Q12H PRN PO .CONSTIPATION Last administered on 04/29/19 09:40; Admin Dose 100 MG; Start 04/25/19 at 21:30 Magnesium Hydroxide (Milk Of Mag) 30 ml DAILY PRN PO .CONSTIPATION Last administered on 04/29/19 09:40; Admin Dose 30 ML; Start 04/25/19 at 21:30 Famotidine (Pepcid Iv) 20 mg BID IV Last administered on 04/29/19 09:29; Admin Dose 20 MG; Start 04/26/19 at 09:00 Metronidazole 100 ml @ 100 mls/hr Q8 IVPB Last administered on 04/29/19 05:34; Admin Dose 100 MLS/HR; Start 04/27/19 at 14:00 Piperacillin Sod/ Tazobactam Sod 100 ml @ 200 mls/hr Q6 IVPB Last administered on 04/29/19 05:34; Admin Dose 200 MLS/HR; Start 04/27/19 at 12:00 Ondansetron HCl (Zofran Inj) 4 mg Q6H PRN IV NAUSEA AND/OR VOMITING; Start 04/27/19 at 09:00 Acetaminophen (Tylenol Tab) 650 mg Q6H PRN PO PAIN LEVEL 1-3 OR FEVER Last administered on 04/28/19 13:36; Admin Dose 650 MG; Start 04/27/19 at 09:00 Ibuprofen (Motrin) 600 mg Q6H PRN PO PAIN LEVEL 1-3; Start 04/30/19 at 09:00 Ketorolac Tromethamine (Toradol) 30 mg Q6H PRN IV PAIN Last administered on 04/29/19 04:36; Admin Dose 30 MG; Start 04/27/19 at 09:00; Stop 04/30/19 at 08:59 Morphine Sulfate (morphine) 2 mg Q2H PRN IV PAIN LEVEL 8-10 Last administered on 04/29/19at 02:17; Admin Dose 2 MG; Start 04/27/19 at 09:00 Acetaminophen/ Hydrocodone Bitart ([place] (5/325)) 1 tab Q6H PRN PO PAIN LEVEL 4-7 Last administered on 04/29/19at 00:36; Admin Dose 1 TAB; Start 04/27/19 at 09:00 Potassium Chloride/Dextrose/ Sod Cl 1,000 ml @ 50 mls/hr Q20H IV Last administered on 04/28/19at 18:01; Admin Dose 50 MLS/HR; Start 04/27/19 at 08:52 Diphenhydramine HCl (Benadryl) 25 mg Q6H PRN PO PRURITUS; Start 04/27/19 at 09:00 HEDY ANGUIANO NP Apr 29, 2019 10:44
[2019-04-29] MEDS: D5W-0.45 NACL + KCL 20 MEQ 1,000 ML IV SCH ×2 (13:06→20:50)
--- NOTE | 2019-04-29 13:24 | CONS ---
Assessment/Plan Assessment/Plan Assessment/Plan (Daily) Assessment/Plan (Daily) IMPRESSION: 1. Abscess, suprapubic area, diverticular versus appendiceal. 2. Mild leukocytosis. 3. Patient had a laparoscopic drainage of the area appendicular abscess and r emoval of the appendix 4. The drain has brown discolored liquidy stool with a sediments stool in the sediments cannot be absolutely ruled out Plan Continue postoperative care and antibiotic PLAN: NPO. Continue antibiotic and surgical followup. Patient might be taken to the OR for definitive surgery Consultation Date/Type/Reason Admit Date/Time Apr 25, 2019 at 21:01 Initial Consult Date 04/26/19 Date/Time of Note DATE: 04/29/19 TIME: 13:23 24 HR Interval Summary Free Text/Dictation Usual postoperative pain Exam/Review of Systems Exam Vitals Vital Signs Date Temp Pulse Resp B/P (MAP) Pulse Ox O2 O2 Flow FiO2 Time Delivery Rate 04/29/19 98.3 66 18 133/97 96 Room Air 07:23 (109) Intake and Output 04/28/19 04/28/19 04/29/19 1515:00 23:00 07:00 IntakeIntake Total 400 ml 1000 ml 200 ml OutputOutput Total 230 ml 50 ml 535 ml BalanceBalance 170 ml 950 ml -335 ml Constitutional: alert, oriented, well developed ENMT: nl external ears & nose, nl lips & teeth, nl nasal mucosa & septum Gastrointestinal: soft, nl liver, spleen, non-tender Neurological: PIPE INSPECTOR II-XII intact, nl mental status, nl speech, nl strength Results Result Diagram: 04/29/19 0435 04/29/19 0435 Results 24hrs Laboratory Tests Test 04/29/19 04:35 White Blood Count 10.4 Red Blood Count 4.43 L Hemoglobin 13.0 L Hematocrit 37.5 L Mean Corpuscular Volume 84.7 Mean Corpuscular Hemoglobin 29.3 Mean Corpuscular Hemoglobin Concent 34.7 Red Cell Distribution Width 12.1 Platelet Count 377 Mean Platelet Volume 9.2 Immature Granulocytes % 0.600 H Neutrophils % 82.3 H Lymphocytes % 10.2 L Monocytes % 6.3 Eosinophils % 0.3 Basophils % 0.3 Nucleated Red Blood Cells % 0.0 Immature Granulocytes # 0.060 H Neutrophils # 8.6 H Lymphocytes # 1.1 Monocytes # 0.7 Eosinophils # 0.0 Basophils # 0.0 Nucleated Red Blood Cells # 0.0 Sodium Level 139 Potassium Level 4.0 Chloride Level 105 Carbon Dioxide Level 25 Anion Gap 9 Blood Urea Nitrogen 7 Creatinine 0.82 Est Glomerular Filtrat Rate mL/min > 60 Glucose Level 109 Calcium Level 8.5 Phosphorus Level 3.4 Magnesium Level 2.1 Total Bilirubin 0.5 Direct Bilirubin 0.00 Indirect Bilirubin 0.5 Aspartate Amino Transf (AST/SGOT) 19 Alanine Aminotransferase (ALT/SGPT) 18 Alkaline Phosphatase 49 Total Protein 7.2 Albumin 3.5 Globulin 3.70 H Albumin/Globulin Ratio 0.94 Medications Medication Current Medications IV Flush (NS 3 ml) 3 ml PER PROTOCOL IV Last administered on 04/28/19 23:30; Admin Dose 3 ML; Start 04/25/19 at 21:30 Ondansetron HCl (Zofran Inj) 4 mg Q6H PRN IV NAUSEA/VOMITING; Start 04/25/19 at 21:30 Acetaminophen (Tylenol Supp) 650 mg Q6H PRN [place] .PAIN 1-3 OR TEMP; Start 04/25/19 at 21:30 Morphine Sulfate (morphine) 2 mg Q4H PRN IV .SEVERE PAIN 7-10 Last administered on 04/29/19 11:21; Admin Dose 2 MG; Start 04/25/19 at 21:30 Docusate Sodium (Colace) 100 mg Q12H PRN PO .CONSTIPATION Last administered on 04/29/19 09:40; Admin Dose 100 MG; Start 04/25/19 at 21:30 Magnesium Hydroxide (Milk Of Mag) 30 ml DAILY PRN PO .CONSTIPATION Last administered on 04/29/19 09:40; Admin Dose 30 ML; Start 04/25/19 at 21:30 Famotidine (Pepcid Iv) 20 mg BID IV Last administered on 04/29/19 09:29; Admin Dose 20 MG; Start 04/26/19 at 09:00 Metronidazole 100 ml @ 100 mls/hr Q8 IVPB Last administered on 04/29/19 05:34; Admin Dose 100 MLS/HR; Start 04/27/19 at 14:00 Piperacillin Sod/ Tazobactam Sod 100 ml @ 200 mls/hr Q6 IVPB Last administered on 04/29/19 13:06; Admin Dose 200 MLS/HR; Start 04/27/19 at 12:00 Ondansetron HCl (Zofran Inj) 4 mg Q6H PRN IV NAUSEA AND/OR VOMITING; Start 04/27/19 at 09:00 Acetaminophen (Tylenol Tab) 650 mg Q6H PRN PO PAIN LEVEL 1-3 OR FEVER Last administered on 04/28/19 13:36; Admin Dose 650 MG; Start 04/27/19 at 09:00 Ibuprofen (Motrin) 600 mg Q6H PRN PO PAIN LEVEL 1-3; Start 04/30/19 at 09:00 Ketorolac Tromethamine (Toradol) 30 mg Q6H PRN IV PAIN Last administered on 04/29/19 04:36; Admin Dose 30 MG; Start 04/27/19 at 09:00; Stop 04/30/19 at 08:59 Morphine Sulfate (morphine) 2 mg Q2H PRN IV PAIN LEVEL 8-10 Last administered on 04/29/19 02:17; Admin Dose 2 MG; Start 04/27/19 at 09:00 Acetaminophen/ Hydrocodone Bitart ([place] (5/325)) 1 tab Q6H PRN PO PAIN LEVEL 4-7 Last administered on 04/29/19 00:36; Admin Dose 1 TAB; Start 04/27/19 at 09:00 Potassium Chloride/Dextrose/ Sod Cl 1,000 ml @ 50 mls/hr Q20H IV Last administered on 04/29/19 13:06; Admin Dose 50 MLS/HR; Start 04/27/19 at 08:52 Diphenhydramine HCl (Benadryl) 25 mg Q6H PRN PO PRURITUS; Start 04/27/19 at 09:00 LILI LOPEZ MD Apr 29, 2019 13:24
--- NOTE | 2019-04-29 14:05 | PN ---
YAZMIN LOYD 04/29/19 1405: Date/Time of Note Date/Time of Note DATE: 04/29/19 TIME: 14:02 Assessment/Plan VTE Prophylaxis Risk score (from [facility])>0 risk: 4 SCD applied (from [facility]): Yes Pharmacological prophylaxis: NA/contraindicated Pharm contraindication: surgical contra Lines/Catheters IV C[facility]ter Type (from [facility]): Peripheral IV Assessment/Plan Hospital Course 1. Severe lower abdominal pain with a CT of the abdomen and pelvis showing an air and fluid collection suggestive of abscess, 3.2 x 5.3 cm x 3.1 cm. Could be secondary to ruptured appendicitis/sigmoid ruptured diverticulitis. s/p Exploratory laparoscopy, drainage of the intra-abdominal abscess, appendectomy on 04/27/19. Possible colectomy 2. History of diverticulosis, status post diverticulitis already treated with p.o. antibiotics. 3. History of colitis. 4. Leukocytosis secondary to #1. 5. Anemia 6. Overweight Assessment/Plan - WILL FU, post op cultures not resulted - Clear liquid diet, NPO - WBC 10 from12, monitor - Post op care, pain control - iv zosyn/flagyl - GI.proph. Famotidine -DVT prophylaxis -surg. care dr Mendoza Result Diagram: 04/29/1943404/29/19 0435 Results 24hrs Laboratory Tests Test 04/29/19 04:35 White Blood Count 10.4 Red Blood Count 4.43 L Hemoglobin 13.0 L Hematocrit 37.5 L Mean Corpuscular Volume 84.7 Mean Corpuscular Hemoglobin 29.3 Mean Corpuscular Hemoglobin Concent 34.7 Red Cell Distribution Width 12.1 Platelet Count 377 Mean Platelet Volume 9.2 Immature Granulocytes % 0.600 H Neutrophils % 82.3 H Lymphocytes % 10.2 L Monocytes % 6.3 Eosinophils % 0.3 Basophils % 0.3 Nucleated Red Blood Cells % 0.0 Immature Granulocytes # 0.060 H Neutrophils # 8.6 H Lymphocytes # 1.1 Monocytes # 0.7 Eosinophils # 0.0 Basophils # 0.0 Nucleated Red Blood Cells # 0.0 Sodium Level 139 Potassium Level 4.0 Chloride Level 105 Carbon Dioxide Level 25 Anion Gap 9 Blood Urea Nitrogen 7 Creatinine 0.82 Est Glomerular Filtrat Rate mL/min > 60 Glucose Level 109 Calcium Level 8.5 Phosphorus Level 3.4 Magnesium Level 2.1 Total Bilirubin 0.5 Direct Bilirubin 0.00 Indirect Bilirubin 0.5 Aspartate Amino Transf (AST/SGOT) 19 Alanine Aminotransferase (ALT/SGPT) 18 Alkaline Phosphatase 49 Total Protein 7.2 Albumin 3.5 Globulin 3.70 H Albumin/Globulin Ratio 0.94 Subjective 24 Hr Interval Summary Gastrointestinal: pain, diarrhea Exam/Review of Systems Exam Vitals Vital Signs Date Temp Pulse Resp B/P (MAP) Pulse Ox O2 O2 Flow FiO2 Time Delivery Rate 04/29/19 98.3 66 18 133/97 96 Room Air 07:23 (109) Intake and Output 04/28/19 04/28/19 04/29/19 1515:00 23:00 07:00 IntakeIntake Total 400 ml 1000 ml 200 ml OutputOutput Total 230 ml 50 ml 535 ml BalanceBalance 170 ml 950 ml -335 ml Constitutional: alert, oriented Respiratory: clear to auscultation Cardiovascular: regular rate and rhythm Gastrointestinal: soft, surgical scars, other (drain) Results Result Diagram: 04/29/19 0435 04/29/19 0435 Results 24hrs Laboratory Tests Test 04/29/19 04:35 White Blood Count 10.4 Red Blood Count 4.43 L Hemoglobin 13.0 L Hematocrit 37.5 L Mean Corpuscular Volume 84.7 Mean Corpuscular Hemoglobin 29.3 Mean Corpuscular Hemoglobin Concent 34.7 Red Cell Distribution Width 12.1 Platelet Count 377 Mean Platelet Volume 9.2 Immature Granulocytes % 0.600 H Neutrophils % 82.3 H Lymphocytes % 10.2 L Monocytes % 6.3 Eosinophils % 0.3 Basophils % 0.3 Nucleated Red Blood Cells % 0.0 Immature Granulocytes # 0.060 H Neutrophils # 8.6 H Lymphocytes # 1.1 Monocytes # 0.7 Eosinophils # 0.0 Basophils # 0.0 Nucleated Red Blood Cells # 0.0 Sodium Level 139 Potassium Level 4.0 Chloride Level 105 Carbon Dioxide Level 25 Anion Gap 9 Blood Urea Nitrogen 7 Creatinine 0.82 Est Glomerular Filtrat Rate mL/min > 60 Glucose Level 109 Calcium Level 8.5 Phosphorus Level 3.4 Magnesium Level 2.1 Total Bilirubin 0.5 Direct Bilirubin 0.00 Indirect Bilirubin 0.5 Aspartate Amino Transf (AST/SGOT) 19 Alanine Aminotransferase (ALT/SGPT) 18 Alkaline Phosphatase 49 Total Protein 7.2 Albumin 3.5 Globulin 3.70 H Albumin/Globulin Ratio 0.94 Medications Medication Current Medications IV Flush (NS 3 ml) 3 ml PER PROTOCOL IV Last administered on 04/28/19 23:30; Admin Dose 3 ML; Start 04/25/19 at 21:30 Ondansetron HCl (Zofran Inj) 4 mg Q6H PRN IV NAUSEA/VOMITING; Start 04/25/19 at 21:30 Acetaminophen (Tylenol Supp) 650 mg Q6H PRN [place] .PAIN 1-3 OR TEMP; Start 04/25/19 at 21:30 Morphine Sulfate (morphine) 2 mg Q4H PRN IV .SEVERE PAIN 7-10 Last administered on 04/29/19 11:21; Admin Dose 2 MG; Start 04/25/19 at 21:30 Docusate Sodium (Colace) 100 mg Q12H PRN PO .CONSTIPATION Last administered on 04/29/19 09:40; Admin Dose 100 MG; Start 04/25/19 at 21:30 Magnesium Hydroxide (Milk Of Mag) 30 ml DAILY PRN PO .CONSTIPATION Last a dministered on 04/29/19 09:40; Admin Dose 30 ML; Start 04/25/19 at 21:30 Famotidine (Pepcid Iv) 20 mg BID IV Last administered on 04/29/19 09:29; Admin Dose 20 MG; Start 04/26/19 at 09:00 Metronidazole 100 ml @ 100 mls/hr Q8 IVPB Last administered on 04/29/19 13:42; Admin Dose 100 MLS/HR; Start 04/27/19 at 14:00 Piperacillin Sod/ Tazobactam Sod 100 ml @ 200 mls/hr Q6 IVPB Last administered on 04/29/19 13:06; Admin Dose 200 MLS/HR; Start 04/27/19 at 12:00 Ondansetron HCl (Zofran Inj) 4 mg Q6H PRN IV NAUSEA AND/OR VOMITING; Start 04/27/19 at 09:00 Acetaminophen (Tylenol Tab) 650 mg Q6H PRN PO PAIN LEVEL 1-3 OR FEVER Last administered on 04/28/19 13:36; Admin Dose 650 MG; Start 04/27/19 at 09:00 Ibuprofen (Motrin) 600 mg Q6H PRN PO PAIN LEVEL 1-3; Start 04/30/19 at 09:00 Ketorolac Tromethamine (Toradol) 30 mg Q6H PRN IV PAIN Last administered on 04/29/19at 13:51; Admin Dose 30 MG; Start 04/27/19 at 09:00; Stop 04/30/19 at 08:59 Morphine Sulfate (morphine) 2 mg Q2H PRN IV PAIN LEVEL 8-10 Last administered on 04/29/19at 02:17; Admin Dose 2 MG; Start 04/27/19 at 09:00 Acetaminophen/ Hydrocodone Bitart ([place] (5/325)) 1 tab Q6H PRN PO PAIN LEVEL 4-7 Last administered on 04/29/19at 00:36; Admin Dose 1 TAB; Start 04/27/19 at 09:00 Potassium Chloride/Dextrose/ Sod Cl 1,000 ml @ 50 mls/hr Q20H IV Last administered on 04/29/19at 13:06; Admin Dose 50 MLS/HR; Start 04/27/19 at 08:52 Diphenhydramine HCl (Benadryl) 25 mg Q6H PRN PO PRURITUS; Start 04/27/19 at 09:00 WENDI BELL MD 04/29/19 1517: Assessment/Plan Assessment/Plan Assessment/Plan SEEN AND EXAMINED WITH CONTACT LENS CUTTER ? JANNETTE DRAINAGE WITH FEACAL COMPONENTS ? Fistula, now with fevers pssoble colectomy today Result Diagram: 04/29/19 0435 04/29/19 0435 YAZMIN LOYD Apr 29, 2019 14:05 WENDI BELL MD Apr 29, 2019 15:17
--- NOTE | 2019-04-29 14:09 | PREAC ---
Date/Time of Note Date/Time of Note DATE: 04/29/19 TIME: 14:08 Anesthesia Eval and Record Evaluation Time Pre-Procedure Interview DATE: 04/29/19 TIME: 14:08 Age 43 Sex male NPO: 8 hrs Preoperative diagnosis diverticular rupture, abscess Planned procedure sigmoid colon resection, diverticular ostomy Past Medical History Past Medical History: Includes Heme: Anemia Surgery & Anesthesia Issues No known issue Meds Anticoagulation: No Beta Rama within 24 hr: No Reason Beta Rama not given: Pt. not on B-Rama Reported Medications Dicyclomine HCl (Dicyclomine HCl) 20 Mg Tablet, 20 MG PO BID for 30 Days, #60 TAKE 1 TABLET BY MOUTH TWICE A DAY 04/25/19 Ciprofloxacin Hcl* (Ciprofloxacin Hcl*) 500 Mg Tablet, 500 MG PO BID TAKE 1 TABLET BY MOUTH TWICE A DAY FOR 7 DAYS 04/25/19 Metronidazole (Flagyl) 250 Mg Tab, 250 MG PO TID for 7 Days, #21 TAKE 1 TABLET BY MOUTH 3 TIMES A DAY FOR 7 DAYS 04/25/19 Discontinued Reported Medications [Metronidazole] No Conflict Check 04/19/19 [Cipro] No Conflict Check 04/19/19 Current Medications IV Flush (NS 3 ml) 3 ml PER PROTOCOL IV Last administered on 04/28/19at 23:30; Admin Dose 3 ML; Start 04/25/19 at 21:30 Ondansetron HCl (Zofran Inj) 4 mg Q6H PRN IV NAUSEA/VOMITING; Start 04/25/19 at 21:30 Acetaminophen (Tylenol Supp) 650 mg Q6H PRN [place] .PAIN 1-3 OR TEMP; Start 04/25/19 at 21:30 Morphine Sulfate (morphine) 2 mg Q4H PRN IV .SEVERE PAIN 7-10 Last administered on 04/29/19at 11:21; Admin Dose 2 MG; Start 04/25/19 at 21:30 Docusate Sodium (Colace) 100 mg Q12H PRN PO .CONSTIPATION Last administered on 04/29/19at 09:40; Admin Dose 100 MG; Start 04/25/19 at 21:30 Magnesium Hydroxide (Milk Of Mag) 30 ml DAILY PRN PO .CONSTIPATION Last administered on 04/29/19at 09:40; Admin Dose 30 ML; Start 04/25/19 at 21:30 Famotidine (Pepcid Iv) 20 mg BID IV Last administered on 04/29/19 09:29; Admin Dose 20 MG; Start 04/26/19 at 09:00 Metronidazole 100 ml @ 100 mls/hr Q8 IVPB Last administered on 04/29/19 13:42; Admin Dose 100 MLS/HR; Start 04/27/19 at 14:00 Piperacillin Sod/ Tazobactam Sod 100 ml @ 200 mls/hr Q6 IVPB Last administered on 04/29/19 13:06; Admin Dose 200 MLS/HR; Start 04/27/19 at 12:00 Ondansetron HCl (Zofran Inj) 4 mg Q6H PRN IV NAUSEA AND/OR VOMITING; Start 04/27/19 at 09:00 Acetaminophen (Tylenol Tab) 650 mg Q6H PRN PO PAIN LEVEL 1-3 OR FEVER Last administered on 04/28/19 13:36; Admin Dose 650 MG; Start 04/27/19 at 09:00 Ibuprofen (Motrin) 600 mg Q6H PRN PO PAIN LEVEL 1-3; Start 04/30/19 at 09:00 Ketorolac Tromethamine (Toradol) 30 mg Q6H PRN IV PAIN Last administered on 04/29/19 13:51; Admin Dose 30 MG; Start 04/27/19 at 09:00; Stop 04/30/19 at 08:59 Morphine Sulfate (morphine) 2 mg Q2H PRN IV PAIN LEVEL 8-10 Last administered on 04/29/19 02:17; Admin Dose 2 MG; Start 04/27/19 at 09:00 Acetaminophen/ Hydrocodone Bitart ([place] (5/325)) 1 tab Q6H PRN PO PAIN LEVEL 4-7 Last administered on 04/29/19 00:36; Admin Dose 1 TAB; Start 04/27/19 at 09:00 Potassium Chloride/Dextrose/ Sod Cl 1,000 ml @ 50 mls/hr Q20H IV Last administered on 04/29/19 13:06; Admin Dose 50 MLS/HR; Start 04/27/19 at 08:52 Diphenhydramine HCl (Benadryl) 25 mg Q6H PRN PO PRURITUS; Start 04/27/19 at 09:00 Meds reviewed: Yes Allergies Coded Allergies: No Known Allergy (Unverified , 04/25/19) Allergies Reviewed: Yes Labs/Studies Labs Reviewed: Reviewed by anesthesiologist Result Diagram: 04/29/19 0435 04/29/19 0435 Laboratory Tests 04/29/19 04:35 test: N/A Studies: ECG, CXR Pre-procedure Exam Last vitals Vital Signs Date Temp Pulse Resp B/P (MAP) Pulse Ox O2 O2 Flow FiO2 Time Delivery Rate 04/29/19 98.3 66 18 133/97 96 Room Air 07:23 (109) Airway: Adequate mouth opening, Adequate thyromental dist Mallampati: Mallampati II Teeth: Normal Lung: Normal Heart: Normal ASA Physical Status ASA physical status: 3 Emergency: E Planned Anesthetic General/MAC: ETT Planned Pain Management Parenteral pain med Pre-operative Attestations Prior to commencing anesthesia and surgery, the patient was re-evaluated, there was verification of: *The patient's identity *The results of appropriate recent lab work and preoperative vital signs *The above evaluation not changing prior to induction *Anesthetic plan, risk benefits, alternative and complications discussed with patient/family; questions answered; patient/family understands, accepts and wishes to proceed. CELIO FORREST Apr 29, 2019 14:09
[2019-04-29] MEDS ORDERED: ONDANSETRON 4 MG INJ ONE (15:30)
--- NOTE | 2019-04-29 15:30 | HPN ---
Date/Time of Note Date/Time of Note DATE: 04/29/19 TIME: 15:29 Interval H&P Admission Note Pt. seen H&P reviewed: Systems changes noted below Since last surgery the patient developed internal leakage visible on JANNETTE drain. He is still febrile. Given the above-mentioned findings the decision is made to go back to the operating room for definitive procedure sigmoidectomy possible ileostomy possible Valentin procedure. ELIAS CEDENO MD Apr 29, 2019 15:30
[2019-04-29] MEDS ORDERED: PROPOFOL 20 ML ONE (15:32)
[2019-04-29] MEDS ORDERED: LIDOCAINE 2% (SDV) 5 ML INJ ONE (15:34)
[2019-04-29] MEDS ORDERED: ROCURONIUM 50 MG INJ ONE (15:34)
[2019-04-29] MEDS ORDERED: morphine 10 MG INJ ONE (15:40)
[2019-04-29] MEDS ORDERED: DEXAMETHASONE 4 MG/ML 5 ML INJ ONE (15:41)
[2019-04-29] MEDS ORDERED: GLYCOPYRROLATE 0.4 MG INJ ONE (18:47)
[2019-04-29] MEDS ORDERED: NEOSTIGMINE 3 MG/3 ML SYRINGE ONE (18:47)
--- NOTE | 2019-04-29 19:06 | PAC ---
Date/Time of Note Date/Time of Note DATE: 04/29/19 TIME: 19:05 Post-Anesthesia Notes Post-Anesthesia Note Last documented vital signs Vital Signs Date Temp Pulse Resp B/P (MAP) Pulse Ox O2 O2 Flow FiO2 Time Delivery Rate 04/29/19 99.6 73 20 139/90 94 1905 (106) 04/29/19 Room Air 07:23 Activity: WNL Respiratory function: WNL Cardiovascular function: WNL Mental status: Baseline Pain reasonably controlled: Yes Hydration appropriate: Yes Nausea/Vomiting absent: Yes CELIO FORREST Apr 29, 2019 19:06
[2019-04-29] MEDS: FENTAnyl 50 MCG/ML VIAL IV PRN ×2 (19:18→19:31)
[2019-04-29] MEDS ORDERED: HYDROmorphONE 1 MG/5 ML IV SYRINGE IV PRN ×3 (19:30)
[2019-04-29] MEDS ORDERED: KETOROLAC 30 MG INJ IV PRN (19:30)
[2019-04-29] MEDS ORDERED: METOCLOPRAMIDE 10 MG INJ IV PRN (19:30)
[2019-04-29] MEDS ORDERED: DIPHENHYDRAMINE 25 MG CAP PO PRN (19:30)
[2019-04-29] MEDS ORDERED: ONDANSETRON 4 MG INJ IV PRN ×2 (19:30)
[2019-04-29] MEDS ORDERED: ALBUTEROL 0.083% (NEB) 2.5 MG/3 ML AMP HHN PRN (19:30)
[2019-04-29] MEDS ORDERED: hydrALAzine 20 MG INJ IV PRN (19:30)
[2019-04-29] MEDS ORDERED: DIPHENHYDRAMINE 50 MG INJ IV PRN (19:30)
[2019-04-29] MEDS ORDERED: MEPERIDINE 25 MG INJ IV PRN (19:30)
[2019-04-29] MEDS ORDERED: IBUPROFEN 600 MG TAB PO PRN (19:30)
[2019-04-29] MEDS ORDERED: LABETALOL HCL 20MG INJ IV PRN (19:30)
[2019-04-29] MEDS ORDERED: EPHEDrine 25 MG/5 ML SYG IV PRN (19:30)
[2019-04-29] MEDS ORDERED: ACETAMINOPHEN 325 MG TAB PO PRN (19:30)
[2019-04-29] MEDS ORDERED: FENTAnyl 50 MCG/ML VIAL IV PRN ×2 (19:30)
[2019-04-29] MEDS ORDERED: MIDAZOLAM 1 MG/ML 2 ML INJ IV PRN (19:30)
--- NOTE | 2019-04-29 19:33 | OPR ---
Date/Time of Note Date/Time of Note DATE: 04/29/19 TIME: 19:22 Operative Report Procedure Date: Apr 29, 2019 Preoperative Diagnosis Perforated diverticulitis Postoperative Diagnosis Perforated diverticulitis Operation/Procedure Performed Open low anterior resection. Diverting loop ileostomy. Surgeon see signature line [employer] Elvis Castaneda MD Anesthesia Type: general Anesthesiologist: YANN FORREST MD Estimated Blood Loss: 10 - 50 ml's Transfusion none Specimen Sigmoid colon and upper rectum Grafts/Implants none Complications none Pt Condition Post Procedure: stable Disposition: PACU Indications 43-year-old male with perforated diverticulitis and underwent laparoscopic drainage of the abscess and appendectomy 2 days ago. Patient continues with chills elevated white count increasing pain and decision was made to proceed with colectomy. We discussed risks and benefits were discussed possible side effects, possible complications including but not limited to bleeding, infection, injury to other organs, anesthesia complication, patient understood risk and benefits and wished to proceed. Procedure Description Patient was brought to the operating room positioned in lithotomy position general anesthesia was induced. Abdomen was prepped and draped usual sterile fashion. Urinary bladder was decompressed with a Musa. The low midline laparotomy was performed. The old JANNETTE drain was removed. Upon entering the abdominal cavity the large inflammatory mass that consists of small bowel s igmoid colon and omentum was noted omentum was dissected off the inflammatory mass. The wound protector was placed. the small bowel was bluntly dissected off during the dissection there was a small tear of the small bowel. This area was marked with a silk suture. After the sigmoid inflammatory mass was completely mobilized of the surrounding structures I started by mobilizing the sigmoid colon. The lateral dissection was performed along the line of Toldt. Left ureter was clearly identified. After that the sigmoid colon was transected using linear stapler with blue load approximately 5 cm proximally to the upper end of the inflammatory mass. The mesentery of the sigmoid colon was taken using bipolar device and bleeding was controlled with suture ligatures. After the upper rectum was sufficiently mobilized it was transected using counter stapler. The specimen was removed. After that the distal stump of the sigmoid colon was opened and using dilators it was measured. Decision was made to perform anastomosis with 33 EEA staple. The anvil of the stapler was placed into the stump of the sigmoid colon and secured with pursestring running 2-0 Prolene suture after that the stapler was introduced through the abdominals up to the stump of the rectum, the peak was advanced through the rectum wall connected to the anvil and anastomosis was performed. The stapler was withdrawn donuts were both checked and were found to be intact. After that the anastomosis was checked with insufflation of the air-fluid the sigmoidoscope and by covering the anastomosis with water. The anastomosis was found to be waterproof. After that the abdomen was irrigated with copious amount of warm normal saline. After that the round skin incision was performed midway between the anterior superior iliac spine and the umbilicus which were carried down to the fascia which was opened in the vertical manner. Through the operating the loop of small bowel which was previously marked with a silk stitch was exteriorized. After that the midline laparotomy was closed with running PDS suture. Before that the separate film was placed in the abdominal cavity to cover the omentum. Wound was irrigated and approximated with surgical clips. After that ileostomy was fashioned with multiple 4-0 Vicryl sutures. The proximal end of the ileostomy was was performed by inverting the bowel wall constructing Twila type ileostomy. The distal end of the small bowel was just sutured to the wound. I examined the ileostomy with a finger it was patent. The plastic angelia was placed underneath the ileostomy and secured to the skin with nylon suture. The ileostomy appliance was applied. By this will finish the procedure. Instrument and sponge counts were correct x2. Patient was extubated transferred to recovery room. ELIAS CEDENO MD Apr 29, 2019 19:33
[2019-04-29] MEDS: HYDROmorphONE 0.5 MG/0.5 ML SYG IV PRN (20:50)
[2019-04-30 00:05] VITALS: BP 127/79; PULSE 77; RESP 18
[2019-04-30] MEDS: PIPER-TAZO 3.375 GM IV (PMX) 100 ML IVPB SCH ×4 (00:58→17:32)
[2019-04-30] MEDS: morphine 2 MG INJ IV PRN ×2 (00:58→05:38)
[2019-04-30 04:00] VITALS: BP 126/70; PULSE 72; RESP 18
[2019-04-30] MEDS: D5W-0.45 NACL + KCL 20 MEQ 1,000 ML IV SCH ×3 (05:30→21:37)
[2019-04-30] MEDS: metroNIDAZOLE 500 MG/NS (PMX) 100 ML IVPB SCH ×3 (06:20→21:19)
[2019-04-30 07:59] VITALS: BP 152/96; PULSE 58; RESP 18
[2019-04-30] MEDS: FAMOTIDINE 20 MG INJ IV SCH ×2 (08:54→20:26)
[2019-04-30] MEDS ORDERED: IBUPROFEN 600 MG TAB PO PRN (09:00)
[2019-04-30] MEDS: KETOROLAC 30 MG INJ IV PRN ×2 (09:03→17:32)
--- NOTE | 2019-04-30 10:39 | CONS ---
Assessment/Plan Assessment/Plan Assessment/Plan (Daily) Assessment/Plan Assessment/Plan (Daily) Assessment/Plan (Daily) IMPRESSION: 1. Abscess, suprapubic area, diverticular versus appendiceal. 2. Mild leukocytosis. 3. Patient had a laparoscopic drainage of the area appendicular abscess and removal of the appendix 4. The drain has brown discolored liquidy stool with a sediments stool in the sediments cannot be absolutely ruled out 5. Perforated diverticulum status post anterior resection followed by diverting ileostomy Plan Continue postoperative care and antibiotic PLAN: NPO. Continue antibiotic and surgical followup. Consultation Date/Type/Reason Admit Date/Time Apr 25, 2019 at 21:01 Initial Consult Date 04/26/19 Date/Time of Note DATE: 04/30/19 TIME: 10:38 24 HR Interval Summary Free Text/Dictation Patient complains of abdominal pain and also inability to pass flatus Exam/Review of Systems Exam Vitals Vital Signs Date Temp Pulse Resp B/P (MAP) Pulse Ox O2 O2 Flow FiO2 Time Delivery Rate 04/30/19 Nasal 2.0 09:00 Cannula 04/30/19 99.1 58 18 152/96 98 07:59 (114) Intake and Output 04/29/19 04/29/19 04/30/19 1515:00 23:00 07:00 IntakeIntake Total 1200 ml 2700 ml 1300 ml OutputOutput Total 1670 ml 510 ml 900 ml BalanceBalance -470 ml 2190 ml 400 ml Eyes: nl conjunctiva, EOMI, nl lids, nl sclera, PERRL ENMT: nl external ears & nose Cardiovascular: regular rate and rhythm, nl pulses Gastrointestinal: other (Ileostomy) Extremities: normal pulses Results Result Diagram: 04/30/19 0428 04/30/19 0428 Results 24hrs Laboratory Tests Test 04/30/19 04:28 White Blood Count 11.6 H Red Blood Count 4.21 L Hemoglobin 12.5 L Hematocrit 35.7 L Mean Corpuscular Volume 84.8 Mean Corpuscular Hemoglobin 29.7 Mean Corpuscular Hemoglobin Concent 35.0 Red Cell Distribution Width 12.1 Platelet Count 398 Mean Platelet Volume 9.2 Immature Granulocytes % 0.500 H Neutrophils % 83.7 H Lymphocytes % 8.3 L Monocytes % 7.2 Eosinophils % 0.1 Basophils % 0.2 Nucleated Red Blood Cells % 0.0 Immature Granulocytes # 0.060 H Neutrophils # 9.7 H Lymphocytes # 1.0 Monocytes # 0.8 Eosinophils # 0.0 Basophils # 0.0 Nucleated Red Blood Cells # 0.0 Sodium Level 137 Potassium Level 4.6 Chloride Level 103 Carbon Dioxide Level 27 Anion Gap 7 Blood Urea Nitrogen 7 Creatinine 0.78 Est Glomerular Filtrat Rate mL/min > 60 Glucose Level 133 Hemoglobin A1c 5.2 Calcium Level 8.0 L Medications Medication Current Medications IV Flush (NS 3 ml) 3 ml PER PROTOCOL IV Last administered on 04/28/19 23:30; Admin Dose 3 ML; Start 04/25/19 at 21:30 Acetaminophen (Tylenol Supp) 650 mg Q6H PRN [place] .PAIN 1-3 OR TEMP; Start 04/25/19 at 21:30 Docusate Sodium (Colace) 100 mg Q12H PRN PO .CONSTIPATION Last administered on 04/29/19 09:40; Admin Dose 100 MG; Start 04/25/19 at 21:30 Magnesium Hydroxide (Milk Of Mag) 30 ml DAILY PRN PO .CONSTIPATION Last administered on 04/29/19 09:40; Admin Dose 30 ML; Start 04/25/19 at 21:30 Famotidine (Pepcid Iv) 20 mg BID IV Last administered on 04/30/19 08:54; Admin Dose 20 MG; Start 04/26/19 at 09:00 Metronidazole 100 ml @ 100 mls/hr Q8 IVPB Last administered on 04/30/19 06:20; Admin Dose 100 MLS/HR; Start 04/27/19 at 14:00 Piperacillin Sod/ Tazobactam Sod 100 ml @ 200 mls/hr Q6 IVPB Last administered on 04/30/19 05:37; Admin Dose 200 MLS/HR; Start 04/27/19 at 12:00 Morphine Sulfate (morphine) 2 mg Q2H PRN IV PAIN LEVEL 8-10 Last administered on 04/30/19 05:38; Admin Dose 2 MG; Start 04/27/19 at 09:00 Hydromorphone HCl (Dilaudid) 0.5 mg Q6H PRN IV BREAKTHROUGH PAIN Last administered on 04/29/19 20:50; Admin Dose 0.5 MG; Start 04/29/19 at 19:30 Acetaminophen/ Hydrocodone Bitart ([place] (5/325)) 1 tab Q6H PRN PO PAIN LEVEL 6-10; Start 04/29/19 at 19:30 Ketorolac Tromethamine (Toradol) 30 mg Q6H PRN IV PAIN Last administered on 04/30/19at 09:03; Admin Dose 30 MG; Start 04/29/19 at 19:30; Stop 05/02/19 at 19:29 Acetaminophen (Tylenol Tab) 650 mg Q6H PRN PO MILD PAIN(1-3)OR ELEVATED TEMP; Start 04/29/19 at 19:30 Ibuprofen (Motrin) 600 mg Q6H PRN PO PAIN LEVEL 1-5; Start 04/29/19 at 19:30 Diphenhydramine HCl (Benadryl) 25 mg Q6H PRN PO ITCHING; Start 04/29/19 at 19:30 Ondansetron HCl (Zofran Inj) 4 mg Q6H PRN IV NAUSEA AND/OR VOMITING; Start 04/29/19 at 19:30 Potassium Chloride/Dextrose/ Sod Cl 1,000 ml @ 100 mls/hr Q10H IV Last administered on 04/30/19at 06:21; Admin Dose 100 MLS/HR; Start 04/29/19 at 19:30 LILI LOPEZ MD Apr 30, 2019 10:39
--- NOTE | 2019-04-30 11:13 | PN ---
Date/Time of Note Date/Time of Note DATE: 04/30/19 TIME: 11:12 Assessment/Plan Lines/Catheters IV Catheter Type (from Nrs): Peripheral IV Muas in Place (from Nrs): Yes Assessment/Plan Assessment/Plan Patient can have sips of water. Await ileostomy function, will ask ET nurse to change the stoma appliance. Subjective 24 Hr Interval Summary Patient is day first after low anterior resection for perforated diverticulitis with diverting ileostomy. Patient is doing well, his vitals stable, afebrile, pain is controlled with IV medication. On exam abdomen is soft wound is clean stoma is viable however slightly dusky. Exam/Review of Systems Vital Signs Vitals Vital Signs Date Temp Pulse Resp B/P (MAP) Pulse Ox O2 O2 Flow FiO2 Time Delivery Rate 04/30/19 Nasal 2.0 09:00 Cannula 04/30/19 99.1 58 18 152/96 98 07:59 (114) Intake and Output 04/29/19 04/29/19 04/30/19 1515:00 23:00 07:00 IntakeIntake Total 1200 ml 2700 ml 1300 ml OutputOutput Total 1670 ml 510 ml 900 ml BalanceBalance -470 ml 2190 ml 400 ml Results Result Diagram: 04/30/19 0428 04/30/19 0428 ELIAS CEDENO MD Apr 30, 2019 11:13
[2019-04-30 11:28] VITALS: PULSE 62
--- NOTE | 2019-04-30 11:30 | PN ---
Date/Time of Note Date/Time of Note DATE: 04/30/19 TIME: 11:27 Assessment/Plan VTE [place] [facility] [place]: 1 [place] [facility] [place] Yes Pharmacological prophylaxis: NA/contraindicated Pharm contraindication: surgical contra Lines/Catheters IV Catheter Type (from [facility]): Peripheral IV Urinary Cath still in place: Yes Reason Cath still needed: urinary retention Assessment/Plan Hospital Course 1. Severe lower abdominal pain with a CT of the abdomen and pelvis showing an air and fluid collection suggestive of abscess, 3.2 x 5.3 cm x 3.1 cm. Could be secondary to ruptured appendicitis/sigmoid ruptured diverticulitis. s/p Exploratory laparoscopy, drainage of the intra-abdominal abscess, appendectomy on 04/27/19. S/p diverting ileostomy 04/29/2019 2. History of diverticulosis, status post diverticulitis already treated with p.o. antibiotics. 3. History of colitis. 4. Leukocytosis secondary to #1. 5. Anemia 6. Overweight Assessment/Plan - NPO -s/p ileostomy creation , Ileostomy nurse teaching, resizing - Post op care ileostomy, nursing teaching -pain control - iv zosyn/flagyl - GI.proph. Famotidine -DVT prophylaxis -surg. care dr Mendoza -case management please Result Diagram: 04/30/1942704/30/198 Results 24hrs Laboratory Tests Test 04/30/19 04:28 White Blood Count 11.6 H Red Blood Count 4.21 L Hemoglobin 12.5 L Hematocrit 35.7 L Mean Corpuscular Volume 84.8 Mean Corpuscular Hemoglobin 29.7 Mean Corpuscular Hemoglobin Concent 35.0 Red Cell Distribution Width 12.1 Platelet Count 398 Mean Platelet Volume 9.2 Immature Granulocytes % 0.500 H Neutrophils % 83.7 H Lymphocytes % 8.3 L Monocytes % 7.2 Eosinophils % 0.1 Basophils % 0.2 Nucleated Red Blood Cells % 0.0 Immature Granulocytes # 0.060 H Neutrophils # 9.7 H Lymphocytes # 1.0 Monocytes # 0.8 Eosinophils # 0.0 Basophils # 0.0 Nucleated Red Blood Cells # 0.0 Sodium Level 137 Potassium Level 4.6 Chloride Level 103 Carbon Dioxide Level 27 Anion Gap 7 Blood Urea Nitrogen 7 Creatinine 0.78 Est Glomerular Filtrat Rate mL/min > 60 Glucose Level 133 Hemoglobin A1c 5.2 Calcium Level 8.0 L Subjective 24 Hr Interval Summary Gastrointestinal: pain Exam/Review of Systems Exam Vitals Vital Signs Date Temp Pulse Resp B/P (MAP) Pulse Ox O2 O2 Flow FiO2 Time Delivery Rate 04/30/19 Nasal 2.0 09:00 Cannula 04/30/19 99.1 58 18 152/96 98 07:59 (114) Intake and Output 04/29/19 04/29/19 04/30/19 1515:00 23:00 07:00 IntakeIntake Total 1200 ml 2700 ml 1300 ml OutputOutput Total 1670 ml 510 ml 900 ml BalanceBalance -470 ml 2190 ml 400 ml Constitutional: alert, oriented Head: normocephalic Eyes: nl conjunctiva Neck: supple Respiratory: clear to auscultation Cardiovascular: regular rate and rhythm Gastrointestinal: soft, surgical scars, other (ileostomy) Results Results 24hrs Laboratory Tests Test 04/30/19 04:28 White Blood Count 11.6 H Red Blood Count 4.21 L Hemoglobin 12.5 L Hematocrit 35.7 L Mean Corpuscular Volume 84.8 Mean Corpuscular Hemoglobin 29.7 Mean Corpuscular Hemoglobin Concent 35.0 Red Cell Distribution Width 12.1 Platelet Count 398 Mean Platelet Volume 9.2 Immature Granulocytes % 0.500 H Neutrophils % 83.7 H Lymphocytes % 8.3 L Monocytes % 7.2 Eosinophils % 0.1 Basophils % 0.2 Nucleated Red Blood Cells % 0.0 Immature Granulocytes # 0.060 H Neutrophils # 9.7 H Lymphocytes # 1.0 Monocytes # 0.8 Eosinophils # 0.0 Basophils # 0.0 Nucleated Red Blood Cells # 0.0 Sodium Level 137 Potassium Level 4.6 Chloride Level 103 Carbon Dioxide Level 27 Anion Gap 7 Blood Urea Nitrogen 7 Creatinine 0.78 Est Glomerular Filtrat Rate mL/min > 60 Glucose Level 133 Hemoglobin A1c 5.2 Calcium Level 8.0 L Medications Medication Current Medications IV Flush (NS 3 ml) 3 ml PER PROTOCOL IV Last administered on 04/28/19at 23:30; Admin Dose 3 ML; Start 04/25/19 at 21:30 Acetaminophen (Tylenol Supp) 650 mg Q6H PRN [place] .PAIN 1-3 OR TEMP; Start 04/25/19 at 21:30 Docusate Sodium (Colace) 100 mg Q12H PRN PO .CONSTIPATION Last administered on 04/29/19 09:40; Admin Dose 100 MG; Start 04/25/19 at 21:30 Magnesium Hydroxide (Milk Of Mag) 30 ml DAILY PRN PO .CONSTIPATION Last administered on 04/29/19 09:40; Admin Dose 30 ML; Start 04/25/19 at 21:30 Famotidine (Pepcid Iv) 20 mg BID IV Last administered on 04/30/19 08:54; Admin Dose 20 MG; Start 04/26/19 at 09:00 Metronidazole 100 ml @ 100 mls/hr Q8 IVPB Last administered on 04/30/19 06:20; Admin Dose 100 MLS/HR; Start 04/27/19 at 14:00 Piperacillin Sod/ Tazobactam Sod 100 ml @ 200 mls/hr Q6 IVPB Last administered on 04/30/19 05:37; Admin Dose 200 MLS/HR; Start 04/27/19 at 12:00 Morphine Sulfate (morphine) 2 mg Q2H PRN IV PAIN LEVEL 8-10 Last administered on 04/30/19 05:38; Admin Dose 2 MG; Start 04/27/19 at 09:00 Hydromorphone HCl (Dilaudid) 0.5 mg Q6H PRN IV BREAKTHROUGH PAIN Last administered on 04/29/19 20:50; Admin Dose 0.5 MG; Start 04/29/19 at 19:30 Acetaminophen/ Hydrocodone Bitart ([place] (5/325)) 1 tab Q6H PRN PO PAIN LEVEL 6-10; Start 04/29/19 at 19:30 Ketorolac Tromethamine (Toradol) 30 mg Q6H PRN IV PAIN Last administered on 04/30/19 09:03; Admin Dose 30 MG; Start 04/29/19 at 19:30; Stop 05/02/19 at 19:29 Acetaminophen (Tylenol Tab) 650 mg Q6H PRN PO MILD PAIN(1-3)OR ELEVATED TEMP; Start 04/29/19 at 19:30 Ibuprofen (Motrin) 600 mg Q6H PRN PO PAIN LEVEL 1-5; Start 04/29/19 at 19:30 Diphenhydramine HCl (Benadryl) 25 mg Q6H PRN PO ITCHING; Start 04/29/19 at 19:30 Ondansetron HCl (Zofran Inj) 4 mg Q6H PRN IV NAUSEA AND/OR VOMITING; Start 04/29/19 at 19:30 Potassium Chloride/Dextrose/ Sod Cl 1,000 ml @ 100 mls/hr Q10H IV Last administered on 04/30/19at 06:21; Admin Dose 100 MLS/HR; Start 04/29/19 at 19:30 YAZMIN LOYD Apr 30, 2019 11:30
[2019-04-30] MEDS: HYDROCODONE/APAP (5/325) TAB PO PRN ×2 (13:56→20:26)
[2019-04-30 14:05] VITALS: BP 143/97; PULSE 63; RESP 20
--- NOTE | 2019-04-30 14:45 | CONS ---
Assessment/Plan Assessment/Plan Hospital Course (Demo Recall) ID PROGRESS NOTE CURRENT ABX: DAY # =>Zosyn + Flagyl 24H INTERVAL SUMMARY * POD #1-> s/p 05/09/19 Open low anterior resection. Diverting loop ileostomy * Repeat washout for Liquid brown drainage w/possible stool sediment in drain post-op * POD #3-> S/P 04/27/2019 Exploratory laparoscopy, drainage of the intra- abdominal abscess, appendectomy. * Low grade temps post op -- WBC slightly elevated * Pain issues persisting -- he has positive affect and is coping well DIAGNOSTIC IMAGING * 04/25/19 CT ABD-PEL: There is an air and fluid collection suggestive of abscess measuring 3.2 x 5.3 x 3.1 cm in the lower mid abdomen. The appendix appears to course towards the collection, suggestive of ruptured appendicitis. However, there is also sigmoid colon diverticulitis which also abuts the inferior margin of the collection, and diverticular abscess is not totally excluded. If clinically indicated, consider further evaluation with CT abdomen pelvis with oral contrast. PHYSICAL EXAMINATION: GENERAL: VSS, NAD HEENT: AT, NC, NECK: Supple, CHEST: Rise symmetrical HEART: Pulse RRR ABDOMEN: Hypoactive BS EXTREMITIES: Warm, dry SKIN: No rash, no diaphoresis ID ASSESSMENT 43 yo M admit with: 1. SIRS on admission w/TMax 100.0, leukocytosis due to #2 2. Severe lower abdominal pain with a CT of the abdomen and pelvis showing an air and fluid collection suggestive of abscess, 3.2 x 5.3 cm x 3.1 cm. * Intra-abdominal abscess, perforated the diverticulitis versus perforated appendicitis. * POD #1-> s/p 05/09/19 Open low anterior resection. Diverting loop ileostomy * Repeat washout for Liquid brown drainage w/possible stool sediment in drain post-op * POD #3-> S/P 04/27/2019 Exploratory laparoscopy, drainage of the intra- abdominal abscess, appendectomy. 3. History of diverticulosis, status post diverticulitis already treated with p.o. antibiotics. 4. History of colitis. 5. ABD pain post operative ABX ALLERGIES: KNDA INVASIVES: PIV CURRENT ABX: DAY # =>Zosyn + Flagyl ID RECOMMENDATIONS/PLAN: 1. Continue current ABX 2. Will be following until TUES when ID WOOD MACHINIST colleague returns. / Consultation Date/Type/Reason Admit Date/Time Apr 25, 2019 at 21:01 Initial Consult Date 04/26/19 Date/Time of Note DATE: 04/30/19 TIME: 14:41 Exam/Review of Systems Exam Vitals Vital Signs Date Temp Pulse Resp B/P (MAP) Pulse Ox O2 O2 Flow FiO2 Time Delivery Rate 04/30/19 98.7 63 20 143/97 98 Room Air 14:05 (112) 04/30/19 2.0 09:00 Intake and Output 04/29/19 04/29/19 04/30/19 1515:00 23:00 07:00 IntakeIntake Total 1200 ml 2700 ml 1300 ml OutputOutput Total 1670 ml 510 ml 900 ml BalanceBalance -470 ml 2190 ml 400 ml Results Result Diagram: 04/30/19 0428 04/30/19 0428 Results 24hrs Laboratory Tests Test 04/30/19 04:28 White Blood Count 11.6 H Red Blood Count 4.21 L Hemoglobin 12.5 L Hematocrit 35.7 L Mean Corpuscular Volume 84.8 Mean Corpuscular Hemoglobin 29.7 Mean Corpuscular Hemoglobin Concent 35.0 Red Cell Distribution Width 12.1 Platelet Count 398 Mean Platelet Volume 9.2 Immature Granulocytes % 0.500 H Neutrophils % 83.7 H Lymphocytes % 8.3 L Monocytes % 7.2 Eosinophils % 0.1 Basophils % 0.2 Nucleated Red Blood Cells % 0.0 Immature Granulocytes # 0.060 H Neutrophils # 9.7 H Lymphocytes # 1.0 Monocytes # 0.8 Eosinophils # 0.0 Basophils # 0.0 Nucleated Red Blood Cells # 0.0 Sodium Level 137 Potassium Level 4.6 Chloride Level 103 Carbon Dioxide Level 27 Anion Gap 7 Blood Urea Nitrogen 7 Creatinine 0.78 Est Glomerular Filtrat Rate mL/min > 60 Glucose Level 133 Hemoglobin A1c 5.2 Calcium Level 8.0 L Medications Medication Current Medications IV Flush (NS 3 ml) 3 ml PER PROTOCOL IV Last administered on 04/28/19at 23:30; Admin Dose 3 ML; Start 04/25/19 at 21:30 Acetaminophen (Tylenol Supp) 650 mg Q6H PRN [place] .PAIN 1-3 OR TEMP; Start 04/25/19 at 21:30 Docusate Sodium (Colace) 100 mg Q12H PRN PO .CONSTIPATION Last administered on 04/29/19 09:40; Admin Dose 100 MG; Start 04/25/19 at 21:30 Magnesium Hydroxide (Milk Of Mag) 30 ml DAILY PRN PO .CONSTIPATION Last administered on 04/29/19 09:40; Admin Dose 30 ML; Start 04/25/19 at 21:30 Famotidine (Pepcid Iv) 20 mg BID IV Last administered on 04/30/19 08:54; Admin Dose 20 MG; Start 04/26/19 at 09:00 Metronidazole 100 ml @ 100 mls/hr Q8 IVPB Last administered on 04/30/19 13:49; Admin Dose 100 MLS/HR; Start 04/27/19 at 14:00 Piperacillin Sod/ Tazobactam Sod 100 ml @ 200 mls/hr Q6 IVPB Last administered on 04/30/19 11:26; Admin Dose 200 MLS/HR; Start 04/27/19 at 12:00 Morphine Sulfate (morphine) 2 mg Q2H PRN IV PAIN LEVEL 8-10 Last administered on 04/30/19 05:38; Admin Dose 2 MG; Start 04/27/19 at 09:00 Hydromorphone HCl (Dilaudid) 0.5 mg Q6H PRN IV BREAKTHROUGH PAIN Last administered on 04/29/19 20:50; Admin Dose 0.5 MG; Start 04/29/19 at 19:30 Acetaminophen/ Hydrocodone Bitart ([place] (5/325)) 1 tab Q6H PRN PO PAIN LEVEL 6-10 Last administered on 04/30/19 13:56; Admin Dose 1 TAB; Start 04/29/19 at 19:30 Ketorolac Tromethamine (Toradol) 30 mg Q6H PRN IV PAIN Last administered on 04/30/19 09:03; Admin Dose 30 MG; Start 04/29/19 at 19:30; Stop 05/02/19 at 19:29 Acetaminophen (Tylenol Tab) 650 mg Q6H PRN PO MILD PAIN(1-3)OR ELEVATED TEMP; Start 04/29/19 at 19:30 Ibuprofen (Motrin) 600 mg Q6H PRN PO PAIN LEVEL 1-5; Start 04/29/19 at 19:30 Diphenhydramine HCl (Benadryl) 25 mg Q6H PRN PO ITCHING; Start 04/29/19 at 19:30 Ondansetron HCl (Zofran Inj) 4 mg Q6H PRN IV NAUSEA AND/OR VOMITING; Start 04/29/19 at 19:30 Potassium Chloride/Dextrose/ Sod Cl 1,000 ml @ 100 mls/hr Q10H IV Last administered on 04/30/19at 06:21; Admin Dose 100 MLS/HR; Start 04/29/19 at 19:30 HEDY ANGUIANO NP Apr 30, 2019 14:45
[2019-04-30 19:15] VITALS: BP 132/83; PULSE 75; RESP 20
[2019-04-30] MEDS: HYDROmorphONE 0.5 MG/0.5 ML SYG IV PRN (21:23)
[2019-05-01] MEDS: PIPER-TAZO 3.375 GM IV (PMX) 100 ML IVPB SCH ×4 (00:34→17:34)
[2019-05-01] MEDS: KETOROLAC 30 MG INJ IV PRN ×3 (00:35→19:40)
[2019-05-01 02:05] VITALS: BP 120/75; PULSE 66; RESP 18
[2019-05-01] MEDS: HYDROCODONE/APAP (5/325) TAB PO PRN ×4 (02:24→21:42)
[2019-05-01] MEDS: metroNIDAZOLE 500 MG/NS (PMX) 100 ML IVPB SCH ×3 (05:53→21:09)
[2019-05-01 07:15] VITALS: BP 130/86; PULSE 62; RESP 18
[2019-05-01] MEDS: FAMOTIDINE 20 MG INJ IV SCH ×2 (09:20→21:02)
--- NOTE | 2019-05-01 12:12 | CONS ---
Assessment/Plan Assessment/Plan Hospital Course (Demo Recall) ID PROGRESS NOTE HOSPITAL COURSE * POD #2-> s/p 05/09/19 Open low anterior resection. Diverting loop ileostomy * Repeat washout for Liquid brown drainage w/possible stool sediment in drain post-op * POD #4-> S/P 04/27/2019 Exploratory laparoscopy, drainage of the intra- abdominal abscess, appendectomy. 24H INTERVAL SUMMARY CURRENT ABX: DAY # =>Zosyn + Flagyl * A/A/O --FEELING BETTER -- positive affect, polite, pleasant, coping very well with pain issues persisting - grateful for his medical care * Denies fevers/chills, WBC normalized today DIAGNOSTIC IMAGING * 04/25/19 CT ABD-PEL: There is an air and fluid collection suggestive of abscess measuring 3.2 x 5.3 x 3.1 cm in the lower mid abdomen. The appendix ap pears to course towards the collection, suggestive of ruptured appendicitis. However, there is also sigmoid colon diverticulitis which also abuts the inferior margin of the collection, and diverticular abscess is not totally excluded. If clinically indicated, consider further evaluation with CT abdomen pelvis with oral contrast. PHYSICAL EXAMINATION: GENERAL: VSS, NAD HEENT: AT, NC, NECK: Supple, CHEST: Rise symmetrical HEART: Pulse RRR ABDOMEN: Hypoactive BS -- Diverting loop ileostomy EXTREMITIES: Warm, dry SKIN: No rash, no diaphoresis ID ASSESSMENT 43 yo M admit with: 1. SIRS on admission w/TMax 100.0, leukocytosis due to #2 => RESOLVING 2. Severe lower abdominal pain with a CT of the abdomen and pelvis showing an air and fluid collection suggestive of abscess, 3.2 x 5.3 cm x 3.1 cm. * Intra-abdominal abscess, perforated the diverticulitis versus perforated appendicitis. * POD #2-> s/p 05/09/19 Open low anterior resection. Diverting loop ileostomy * Repeat washout for Liquid brown drainage w/possible stool sediment in drain post-op * POD #4-> S/P 04/27/2019 Exploratory laparoscopy, drainage of the intra- abdominal abscess, appendectomy. 3. History of diverticulosis, status post diverticulitis already treated with p.o. antibiotics. 4. History of colitis. 5. ABD pain post operative ABX ALLERGIES: KNDA INVASIVES: PIV CURRENT ABX: DAY # =>Zosyn + Flagyl ID RECOMMENDATIONS/PLAN: 1. Continue current ABX 2. Will be following until when ID CONCESSION SUPERVISOR colleague returns. / Consultation Date/Type/Reason Admit Date/Time Apr 25, 2019 at 21:01 Initial Consult Date 04/26/19 Date/Time of Note DATE: 05/01/19 TIME: 12:01 Exam/Review of Systems Exam Vitals Vital Signs Date Temp Pulse Resp B/P (MAP) Pulse Ox O2 O2 Flow FiO2 Time Delivery Rate 05/01/19 98.7 62 18 130/86 97 07:15 (101) 05/01/19 Room Air 02:05 04/30/19 2.0 09:00 Intake and Output 04/30/19 04/30/19 05/01/19 1515:00 23:00 07:00 IntakeIntake Total 200 ml 1450 ml 800 ml OutputOutput Total 1500 ml 1500 ml BalanceBalance 200 ml -50 ml -700 ml Results Result Diagram: 05/01/19 0425 05/01/19 0425 Results 24hrs Laboratory Tests Test 05/01/19 04:25 White Blood Count 9.4 Red Blood Count 3.78 L Hemoglobin 11.1 L Hematocrit 32.4 L Mean Corpuscular Volume 85.7 Mean Corpuscular Hemoglobin 29.4 Mean Corpuscular Hemoglobin Concent 34.3 Red Cell Distribution Width 12.1 Platelet Count 397 Mean Platelet Volume 9.2 Immature Granulocytes % 0.400 Neutrophils % 70.5 Lymphocytes % 14.7 L Monocytes % 9.3 Eosinophils % 4.7 Basophils % 0.4 Nucleated Red Blood Cells % 0.0 Immature Granulocytes # 0.040 H Neutrophils # 6.7 Lymphocytes # 1.4 Monocytes # 0.9 Eosinophils # 0.4 Basophils # 0.0 Nucleated Red Blood Cells # 0.0 Sodium Level 138 Potassium Level 4.0 Chloride Level 104 Carbon Dioxide Level 27 Anion Gap 7 Blood Urea Nitrogen 7 Creatinine 0.80 Est Glomerular Filtrat Rate mL/min > 60 Glucose Level 116 Calcium Level 8.3 L Medications Medication Current Medications IV Flush (NS 3 ml) 3 ml PER PROTOCOL IV Last administered on 04/28/19at 23:30; Admin Dose 3 ML; Start 04/25/19 at 21:30 Acetaminophen (Tylenol Supp) [address] .PAIN 1-3 OR TEMP; Start 04/25/19 at 21:30 Docusate Sodium (Colace) 100 mg Q12H PRN PO .CONSTIPATION Last administered on 04/29/19 09:40; Admin Dose 100 MG; Start 04/25/19 at 21:30 Magnesium Hydroxide (Milk Of Mag) 30 ml DAILY PRN PO .CONSTIPATION Last administered on 04/29/19 09:40; Admin Dose 30 ML; Start 04/25/19 at 21:30 Famotidine (Pepcid Iv) 20 mg BID IV Last administered on 05/01/19 09:20; Admin Dose 20 MG; Start 04/26/19 at 09:00 Metronidazole 100 ml @ 100 mls/hr Q8 IVPB Last administered on 05/01/19 05:53; Admin Dose 100 MLS/HR; Start 04/27/19 at 14:00 Piperacillin Sod/ Tazobactam Sod 100 ml @ 200 mls/hr Q6 IVPB Last administered on 05/01/19 06:55; Admin Dose 200 MLS/HR; Start 04/27/19 at 12:00 Morphine Sulfate (morphine) 2 mg Q2H PRN IV PAIN LEVEL 8-10 Last administered on 04/30/19 05:38; Admin Dose 2 MG; Start 04/27/19 at 09:00 Hydromorphone HCl (Dilaudid) 0.5 mg Q6H PRN IV BREAKTHROUGH PAIN Last administered on 04/30/19 21:23; Admin Dose 0.5 MG; Start 04/29/19 at 19:30 Acetaminophen/ Hydrocodone Bitart ([place] (5/325)) 1 tab Q6H PRN PO PAIN LEVEL 6-10 Last administered on 05/01/19 06:46; Admin Dose 1 TAB; Start 04/29/19 at 19:30 Ketorolac Tromethamine (Toradol) 30 mg Q6H PRN IV PAIN Last administered on 05/01/19 09:19; Admin Dose 30 MG; Start 04/29/19 at 19:30; Stop 05/02/19 at 19:29 Acetaminophen (Tylenol Tab) 650 mg Q6H PRN PO MILD PAIN(1-3)OR ELEVATED TEMP; Start 04/29/19 at 19:30 Ibuprofen (Motrin) 600 mg Q6H PRN PO PAIN LEVEL 1-5; Start 04/29/19 at 19:30 Diphenhydramine HCl (Benadryl) 25 mg Q6H PRN PO ITCHING; Start 04/29/19 at 19:30 Ondansetron HCl (Zofran Inj) 4 mg Q6H PRN IV NAUSEA AND/OR VOMITING; Start 04/29/19 at 19:30 Potassium Chloride/Dextrose/ Sod Cl 1,000 ml @ 100 mls/hr Q10H IV Last administered on 04/30/19at 21:37; Admin Dose 100 MLS/HR; Start 04/29/19 at 19:30 HEDY ANGUIANO NP May 01, 2019 12:11
[2019-05-01] MEDS: D5W-0.45 NACL + KCL 20 MEQ 1,000 ML IV SCH ×2 (13:04→21:30)
--- NOTE | 2019-05-01 13:57 | CONS ---
Assessment/Plan Assessment/Plan Assessment/Plan (Daily) IMPRESSION: 1. Abscess, suprapubic area, diverticular versus appendiceal. 2. Mild leukocytosis. 3. Patient had a laparoscopic drainage of the area appendicular abscess and removal of the appendix 4. The drain has brown discolored liquidy stool with a sediments stool in the sediments cannot be absolutely ruled out 5. Perforated diverticulum status post anterior resection followed by diverting ileostomy, it is functional Plan Continue postoperative care and antibiotic PLAN: Continue antibiotic and surgical followup Oral feeding as per surgeon Consultation Date/Type/Reason Admit Date/Time Apr 25, 2019 at 21:01 Initial Consult Date 04/26/19 Date/Time of Note DATE: 05/01/19 TIME: 13:56 24 HR Interval Summary Constitutional: improved Exam/Review of Systems Exam Vitals Vital Signs Date Temp Pulse Resp B/P (MAP) Pulse Ox O2 O2 Flow FiO2 Time Delivery Rate 05/01/19 98.7 62 18 130/86 97 07:15 (101) 05/01/19 Room Air 02:05 04/30/19 2.0 09:00 Intake and Output 04/30/19 04/30/19 05/01/19 1515:00 23:00 07:00 IntakeIntake Total 200 ml 1450 ml 800 ml OutputOutput Total 1500 ml 1500 ml BalanceBalance 200 ml -50 ml -700 ml Constitutional: alert, oriented, well developed Psych: no complaints, nl mood/affect Head: normocephalic, atraumatic Eyes: nl conjunctiva, EOMI, nl lids, nl sclera, PERRL ENMT: nl external ears & nose, nl lips & teeth, nl nasal mucosa & septum Neck: supple, non-tender Respiratory: clear to auscultation, normal air movement Cardiovascular: regular rate and rhythm, nl pulses Gastrointestinal: soft, nl liver, spleen, non-tender Musculoskeletal: nl extremities to inspection, nl gait and stance Extremities: normal pulses Neurological: BUILDING OFFICIAL II-XII intact, nl mental status, nl speech, nl strength Skin: nl turgor; No rash or lesions Lymph: nl lymph nodes Results Result Diagram: 05/01/19 0425 05/01/19 0425 Results 24hrs Laboratory Tests Test 05/01/19 04:25 White Blood Count 9.4 Red Blood Count 3.78 L Hemoglobin 11.1 L Hematocrit 32.4 L Mean Corpuscular Volume 85.7 Mean Corpuscular Hemoglobin 29.4 Mean Corpuscular Hemoglobin Concent 34.3 Red Cell Distribution Width 12.1 Platelet Count 397 Mean Platelet Volume 9.2 Immature Granulocytes % 0.400 Neutrophils % 70.5 Lymphocytes % 14.7 L Monocytes % 9.3 Eosinophils % 4.7 Basophils % 0.4 Nucleated Red Blood Cells % 0.0 Immature Granulocytes # 0.040 H Neutrophils # 6.7 Lymphocytes # 1.4 Monocytes # 0.9 Eosinophils # 0.4 Basophils # 0.0 Nucleated Red Blood Cells # 0.0 Sodium Level 138 Potassium Level 4.0 Chloride Level 104 Carbon Dioxide Level 27 Anion Gap 7 Blood Urea Nitrogen 7 Creatinine 0.80 Est Glomerular Filtrat Rate mL/min > 60 Glucose Level 116 Calcium Level 8.3 L Medications Medication Current Medications IV Flush (NS 3 ml) 3 ml PER PROTOCOL IV Last administered on 04/28/19 23:30; Admin Dose 3 ML; Start 04/25/19 at 21:30 Acetaminophen (Tylenol Supp) 650 mg Q6H PRN [place] .PAIN 1-3 OR TEMP; Start 04/25/19 at 21:30 Docusate Sodium (Colace) 100 mg Q12H PRN PO .CONSTIPATION Last administered on 04/29/19 09:40; Admin Dose 100 MG; Start 04/25/19 at 21:30 Magnesium Hydroxide (Milk Of Mag) 30 ml DAILY PRN PO .CONSTIPATION Last adm inistered on 04/29/19 09:40; Admin Dose 30 ML; Start 04/25/19 at 21:30 Famotidine (Pepcid Iv) 20 mg BID IV Last administered on 05/01/19 09:20; Admin Dose 20 MG; Start 04/26/19 at 09:00 Metronidazole 100 ml @ 100 mls/hr Q8 IVPB Last administered on 05/01/19 05:53; Admin Dose 100 MLS/HR; Start 04/27/19 at 14:00 Piperacillin Sod/ Tazobactam Sod 100 ml @ 200 mls/hr Q6 IVPB Last administered on 05/01/19 12:03; Admin Dose 200 MLS/HR; Start 04/27/19 at 12:00 Morphine Sulfate (morphine) 2 mg Q2H PRN IV PAIN LEVEL 8-10 Last administered on 04/30/19 05:38; Admin Dose 2 MG; Start 04/27/19 at 09:00 Hydromorphone HCl (Dilaudid) 0.5 mg Q6H PRN IV BREAKTHROUGH PAIN Last administered on 04/30/19 21:23; Admin Dose 0.5 MG; Start 04/29/19 at 19:30 Acetaminophen/ Hydrocodone Bitart ([place] (5/325)) 1 tab Q6H PRN PO PAIN LEVEL 6-10 Last administered on 05/01/19 13:04; Admin Dose 1 TAB; Start 04/29/19 at 19: 30 Ketorolac Tromethamine (Toradol) 30 mg Q6H PRN IV PAIN Last administered on 05/01/19 09:19; Admin Dose 30 MG; Start 04/29/19 at 19:30; Stop 05/02/19 at 19:29 Acetaminophen (Tylenol Tab) 650 mg Q6H PRN PO MILD PAIN(1-3)OR ELEVATED TEMP; Start 04/29/19 at 19:30 Ibuprofen (Motrin) 600 mg Q6H PRN PO PAIN LEVEL 1-5; Start 04/29/19 at 19:30 Diphenhydramine HCl (Benadryl) 25 mg Q6H PRN PO ITCHING; Start 04/29/19 at 19:30 Ondansetron HCl (Zofran Inj) 4 mg Q6H PRN IV NAUSEA AND/OR VOMITING; Start 04/29 at 19:30 Potassium Chloride/Dextrose/ Sod Cl 1,000 ml @ 100 mls/hr Q10H IV Last administered on 05/01/19 13:04; Admin Dose 100 MLS/HR; Start 04/29/19 at 19:30 LILI LOPEZ MD May 01, 2019 13:57
[2019-05-01 14:08] VITALS: BP 125/83; PULSE 56; RESP 18
[2019-05-01] MEDS: HYDROmorphONE 0.5 MG/0.5 ML SYG IV PRN ×2 (14:52→21:00)
--- NOTE | 2019-05-01 18:44 | PN ---
Date/Time of Note Date/Time of Note DATE: 05/01/19 TIME: 18:44 Assessment/Plan Lines/Catheters IV Catheter Type (from Nrs): Peripheral IV Musa in Place (from Nrs): No Assessment/Plan Assessment/Plan Advance diet to clears. Subjective 24 Hr Interval Summary Patient is doing well day 2 after low anterior resection and diverting ileostomy. The the ileostomy is functioning. Abdomen is soft not distended. Wound is clean. Exam/Review of Systems Vital Signs Vitals Vital Signs Date Temp Pulse Resp B/P (MAP) Pulse Ox O2 O2 Flow FiO2 Time Delivery Rate 05/01/19 98.1 56 18 125/83 98 14:08 (97) 05/01/19 Room Air 02:05 04/30/19 2.0 09:00 Intake and Output 04/30/19 04/30/19 05/01/19 1515:00 23:00 07:00 IntakeIntake Total 200 ml 1450 ml 800 ml OutputOutput Total 1500 ml 1500 ml BalanceBalance 200 ml -50 ml -700 ml Results Result Diagram: 05/01/19 0425 05/01/19 0425 ELIAS CEDENO MD May 01, 2019 18:44
[2019-05-01 19:24] VITALS: BP 141/87; PULSE 70; RESP 18
[2019-05-01] MEDS: morphine 2 MG INJ IV PRN (19:46)
[2019-05-02] MEDS: PIPER-TAZO 3.375 GM IV (PMX) 100 ML IVPB SCH ×4 (00:09→18:00)
[2019-05-02] MEDS: D5W-0.45 NACL + KCL 20 MEQ 1,000 ML IV SCH ×2 (00:10→12:46)
[2019-05-02] MEDS: KETOROLAC 30 MG INJ IV PRN ×2 (00:44→17:16)
[2019-05-02 01:34] VITALS: BP 128/91; PULSE 57; RESP 18
[2019-05-02] MEDS: HYDROmorphONE 0.5 MG/0.5 ML SYG IV PRN ×3 (02:53→20:06)
[2019-05-02] MEDS: HYDROCODONE/APAP (5/325) TAB PO PRN ×4 (03:55→22:06)
[2019-05-02] MEDS: metroNIDAZOLE 500 MG/NS (PMX) 100 ML IVPB SCH ×3 (06:05→22:06)
[2019-05-02 07:16] VITALS: BP 149/91; PULSE 78; RESP 19
[2019-05-02] MEDS: FAMOTIDINE 20 MG INJ IV SCH ×2 (09:38→20:05)
--- NOTE | 2019-05-02 13:53 | PN ---
Date/Time of Note Date/Time of Note DATE: 05/02/19 TIME: 13:53 Assessment/Plan VTE Prophylaxis Risk score (from Ns)>0 risk: 2 SCD applied (from [facility] [place] No SCD contraindicated: low risk/ambulating Pharmacological prophylaxis: NA/contraindicated Pharm contraindication: low risk/ambulating Lines/Catheters IV [facility]ter Type (from [facility]): Peripheral IV Urinary Cath still in place: No Assessment/Plan Assessment/Plan 1. Severe lower abdominal pain with a CT of the abdomen and pelvis showing an air and fluid collection suggestive of abscess, 3.2 x 5.3 cm x 3.1 cm. Could be secondary to ruptured appendicitis/sigmoid ruptured diverticulitis. s/p Exploratory laparoscopy, drainage of the intra-abdominal abscess, appendectomy on 04/27/19. S/p diverting ileostomy 04/29/2019 2. History of diverticulosis, status post diverticulitis already treated with p.o. antibiotics. 3. History of colitis. 4. Leukocytosis secondary to #1. 5. Anemia 6. Overweight Assessment/Plan -CLD -s/p ileostomy creation , Ileostomy nurse teaching, resizing - Post op care ileostomy, nursing teaching -pain control - iv zosyn/flagyl - GI.proph. Famotidine -DVT prophylaxis -surg. care dr Mendoza > ADVANCE DIET PER HIM -case management HH please Result Diagram: 05/01/1942405/01/19 042 Results 24hrs Laboratory Tests Test 05/02/19 08:30 Urine Color YELLOW Urine Clarity CLEAR Urine pH 5.0 Urine Specific [place] 1.023 Urine Ketones NEGATIVE Urine Nitrite NEGATIVE Urine Bilirubin NEGATIVE Urine Urobilinogen NEGATIVE Urine Leukocyte Esterase TRACE A Urine Microscopic RBC 1 Urine Microscopic WBC 3 Urine Hemoglobin NEGATIVE Urine Glucose NEGATIVE Urine Total Protein NEGATIVE Subjective 24 Hr Interval Summary Free Text/Dictation Feels ok on CLD Ilesotomy draining Exam/Review of Systems Exam Vitals Vital Signs Date Temp Pulse Resp B/P (MAP) Pulse Ox O2 O2 Flow FiO2 Time Delivery Rate 05/02/19 98.2 78 19 149/91 98 07:16 (110) 05/02/19 Room Air 01:34 04/30/19 2.0 09:00 Intake and Output 05/01/19 05/01/19 05/02/19 1515:00 23:00 07:00 IntakeIntake Total 500 ml 1100 ml 1300 ml OutputOutput Total 150 ml 1300 ml BalanceBalance 350 ml -200 ml 1300 ml Exam Constitutional: alert, oriented Head: normocephalic Eyes: nl conjunctiva Neck: supple Respiratory: clear to auscultation Cardiovascular: regular rate and rhythm Gastrointestinal: soft, surgical scars, other (ileostomy) Results Results 24hrs Laboratory Tests Test 05/02/19 08:30 Urine Color YELLOW Urine Clarity CLEAR Urine pH 5.0 Urine Specific [place] 1.023 Urine Ketones NEGATIVE Urine Nitrite NEGATIVE Urine Bilirubin NEGATIVE Urine Urobilinogen NEGATIVE Urine Leukocyte Esterase TRACE A Urine Microscopic RBC 1 Urine Microscopic WBC 3 Urine Hemoglobin NEGATIVE Urine Glucose NEGATIVE Urine Total Protein NEGATIVE Medications Medication Current Medications IV Flush (NS 3 ml) 3 ml PER PROTOCOL IV Last administered on 04/28/19 23:30; Admin Dose 3 ML; Start 04/25/19 at 21:30 Acetaminophen (Tylenol Supp) 650 mg Q6H PRN [place] .PAIN 1-3 OR TEMP; Start 04/25/19 at 21:30 Docusate Sodium (Colace) 100 mg Q12H PRN PO .CONSTIPATION Last administered on 04/29/19 09:40; Admin Dose 100 MG; Start 04/25/19 at 21:30 Magnesium Hydroxide (Milk Of Mag) 30 ml DAILY PRN PO .CONSTIPATION Last administered on 04/29/19 09:40; Admin Dose 30 ML; Start 04/25/19 at 21:30 Famotidine (Pepcid Iv) 20 mg BID IV Last administered on 05/02/19 09:38; Admin Dose 20 MG; Start 04/26/19 at 09:00 Metronidazole 100 ml @ 100 mls/hr Q8 IVPB Last administered on 05/02/19 06:05; Admin Dose 100 MLS/HR; Start 04/27/19 at 14:00 Piperacillin Sod/ Tazobactam Sod 100 ml @ 200 mls/hr Q6 IVPB Last administered on 05/02/19 12:44; Admin Dose 200 MLS/HR; Start 04/27/19 at 12:00 Morphine Sulfate (morphine) 2 mg Q2H PRN IV PAIN LEVEL 8-10 Last administered on 05/01/19 19:46; Admin Dose 2 MG; Start 04/27/19 at 09:00 Hydromorphone HCl (Dilaudid) 0.5 mg Q6H PRN IV BREAKTHROUGH PAIN Last administered on 05/02/19 12:42; Admin Dose 0.5 MG; Start 04/29/19 at 19:30 Acetaminophen/ Hydrocodone Bitart ([place] (5/325)) 1 tab Q6H PRN PO PAIN LEVEL 6-10 Last administered on 05/02/19 09:54; Admin Dose 1 TAB; Start 04/29/19 at 19:30 Ketorolac Tromethamine (Toradol) 30 mg Q6H PRN IV PAIN Last administered on 05/02/19 00:44; Admin Dose 30 MG; Start 04/29/19 at 19:30; Stop 05/02/19 at 19:29 Acetaminophen (Tylenol Tab) 650 mg Q6H PRN PO MILD PAIN(1-3)OR ELEVATED TEMP; Start 04/29/19 at 19:30 Ibuprofen (Motrin) 600 mg Q6H PRN PO PAIN LEVEL 1-5; Start 04/29/19 at 19:30 Diphenhydramine HCl (Benadryl) 25 mg Q6H PRN PO ITCHING; Start 04/29/19 at 19:30 Ondansetron HCl (Zofran Inj) 4 mg Q6H PRN IV NAUSEA AND/OR VOMITING; Start 04/29/19 at 19:30 Potassium Chloride/Dextrose/ Sod Cl 1,000 ml @ 100 mls/hr Q10H IV Last administered on 05/02/19 12:46; Admin Dose 100 MLS/HR; Start 04/29/19 at 19:30 WENDI BELL MD May 02, 2019 13:53
--- NOTE | 2019-05-02 14:32 | CONS ---
Assessment/Plan Assessment/Plan Hospital Course (Demo Recall) ID PROGRESS NOTE HOSPITAL COURSE * POD #3-> s/p 05/09/19 Open low anterior resection. Diverting loop ileostomy * Repeat washout for Liquid brown drainage w/possible stool sediment in drain post-op * POD #5-> S/P 04/27/2019 Exploratory laparoscopy, drainage of the intra- abdominal abscess, appendectomy. 24H INTERVAL SUMMARY CURRENT ABX: DAY # =>Zosyn + Flagyl * CONTINUES TO IMPROVE NO FEVERS, VSS, HAS BEEN MOBILIZING * A/A/O --FEELING BETTER -- positive affect, polite, pleasant, coping very well with pain issues persisting - grateful for his medical care * Denies fevers/chills, WBC normalized today DIAGNOSTIC IMAGING * 04/25/19 CT ABD-PEL: There is an air and fluid collection suggestive of abscess measuring 3.2 x 5.3 x 3.1 cm in the lower mid abdomen. The appendix appears to course towards the collection, suggestive of ruptured appendicitis. However, there is also sigmoid colon diverticulitis which also abuts the inferior margin of the collection, and diverticular abscess is not totally excluded. If clinically indicated, consider further evaluation with CT abdomen pelvis with oral contrast. PHYSICAL EXAMINATION: GENERAL: VSS, NAD HEENT: AT, NC, NECK: Supple, CHEST: Rise symmetrical HEART: Pulse RRR ABDOMEN: Hypoactive BS -- Diverting loop ileostomy EXTREMITIES: Warm, dry SKIN: No rash, no diaphoresis ID ASSESSMENT 43 yo M admit with: 1. SIRS on admission w/TMax 100.0, leukocytosis due to #2 => RESOLVING 2. Severe lower abdominal pain with a CT of the abdomen and pelvis showing an air and fluid collection suggestive of abscess, 3.2 x 5.3 cm x 3.1 cm. * Intra-abdominal abscess, perforated the diverticulitis versus perforated appendicitis. * POD #2-> s/p 05/09/19 Open low anterior resection. Diverting loop ileostomy * Repeat washout for Liquid brown drainage w/possible stool sediment in drain post-op * POD #4-> S/P 04/27/2019 Exploratory laparoscopy, drainage of the intra- abdominal abscess, appendectomy. 3. History of diverticulosis, status post diverticulitis already treated with p.o. antibiotics. 4. History of colitis. 5. ABD pain post operative ABX ALLERGIES: KNDA INVASIVES: PIV CURRENT ABX: DAY # =>Zosyn + Flagyl ID RECOMMENDATIONS/PLAN: 1. Continue current ABX 2. 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 / Consultation Date/Type/Reason Admit Date/Time Apr 25, 2019 at 21:01 Initial Consult Date 04/26/19 Date/Time of Note DATE: 05/02/19 TIME: 14:31 Exam/Review of Systems Exam Vitals Vital Signs Date Temp Pulse Resp B/P (MAP) Pulse Ox O2 O2 Flow FiO2 Time Delivery Rate 05/02/19 98.2 78 19 149/91 98 07:16 (110) 05/02/19 Room Air 01:34 04/30/19 2.0 09:00 Intake and Output 05/01/19 05/01/19 05/02/19 1414:59 22:59 06:59 IntakeIntake Total 500 ml 1100 ml 1300 ml OutputOutput Total 150 ml 1300 ml BalanceBalance 350 ml -200 ml 1300 ml Results Result Diagram: 05/01/19 0425 05/01/19 0425 Results 24hrs Laboratory Tests Test 05/02/19 08:30 Urine Color YELLOW Urine Clarity CLEAR Urine pH 5.0 Urine Specific [place] 1.023 Urine Ketones NEGATIVE Urine Nitrite NEGATIVE Urine Bilirubin NEGATIVE Urine Urobilinogen NEGATIVE Urine Leukocyte Esterase TRACE A Urine Microscopic RBC 1 Urine Microscopic WBC 3 Urine Hemoglobin NEGATIVE Urine Glucose NEGATIVE Urine Total Protein NEGATIVE Medications Medication Current Medications IV Flush (NS 3 ml) 3 ml PER PROTOCOL IV Last administered on 04/28/19 23:30; Admin Dose 3 ML; Start 04/25/19 at 21:30 Acetaminophen (Tylenol Supp) 650 mg Q6H PRN [place] .PAIN 1-3 OR TEMP; Start 04/25/19 at 21:30 Docusate Sodium (Colace) 100 mg Q12H PRN PO .CONSTIPATION Last administered on 04/29/19 09:40; Admin Dose 100 MG; Start 04/25/19 at 21:30 Magnesium Hydroxide (Milk Of Mag) 30 ml DAILY PRN PO .CONSTIPATION Last administered on 04/29/19 09:40; Admin Dose 30 ML; Start 04/25/19 at 21:30 Famotidine (Pepcid Iv) 20 mg BID IV Last administered on 05/02/19 09:38; Admin Dose 20 MG; Start 04/26/19 at 09:00 Metronidazole 100 ml @ 100 mls/hr Q8 IVPB Last administered on 05/02/19 14:17; Admin Dose 100 MLS/HR; Start 04/27/19 at 14:00 Piperacillin Sod/ Tazobactam Sod 100 ml @ 200 mls/hr Q6 IVPB Last administered on 05/02/19 12:44; Admin Dose 200 MLS/HR; Start 04/27/19 at 12:00 Morphine Sulfate (morphine) 2 mg Q2H PRN IV PAIN LEVEL 8-10 Last administered on 05/01/19 19:46; Admin Dose 2 MG; Start 04/27/19 at 09:00 Hydromorphone HCl (Dilaudid) 0.5 mg Q6H PRN IV BREAKTHROUGH PAIN Last administered on 05/02/19 12:42; Admin Dose 0.5 MG; Start 04/29/19 at 19:30 Acetaminophen/ Hydrocodone Bitart ([place] (5/325)) 1 tab Q6H PRN PO PAIN LEVEL 6-10 Last administered on 05/02/19 09:54; Admin Dose 1 TAB; Start 04/29/19 at 19:30 Ketorolac Tromethamine (Toradol) 30 mg Q6H PRN IV PAIN Last administered on 05/02/19 00:44; Admin Dose 30 MG; Start 04/29/19 at 19:30; Stop 05/02/19 at 19:29 Acetaminophen (Tylenol Tab) 650 mg Q6H PRN PO MILD PAIN(1-3)OR ELEVATED TEMP; Start 04/29/19 at 19:30 Ibuprofen (Motrin) 600 mg Q6H PRN PO PAIN LEVEL 1-5; Start 04/29/19 at 19:30 Diphenhydramine HCl (Benadryl) 25 mg Q6H PRN PO ITCHING; Start 04/29/19 at 19:30 Ondansetron HCl (Zofran Inj) 4 mg Q6H PRN IV NAUSEA AND/OR VOMITING; Start 04/29/19 at 19:30 Potassium Chloride/Dextrose/ Sod Cl 1,000 ml @ 100 mls/hr Q10H IV Last administered on 05/02/19 12:46; Admin Dose 100 MLS/HR; Start 04/29/19 at 19:30 HEDY ANGUIANO NP May 02, 2019 14:32
--- NOTE | 2019-05-02 18:04 | CONS ---
Assessment/Plan Assessment/Plan Assessment/Plan (Daily) Consultation Assessment/Plan Assessment/Plan Assessment/Plan (Daily) IMPRESSION: 1. Abscess, suprapubic area, diverticular versus appendiceal. 2. Mild leukocytosis. 3. Patient had a laparoscopic drainage of the area appendicular abscess and removal of the appendix 4. The drain has brown discolored liquidy stool with a sediments stool in the sediments cannot be absolutely ruled out 5. Perforated diverticulum status post anterior resection followed by diverting ileostomy, it is functional Plan Continue postoperative care and antibiotic PLAN: Continue antibiotic and surgical followup Oral feeding as per surgeon Consultation Date/Type/Reason Admit Date/Time Apr 25, 2019 at 21:01 Initial Consult Date 04/26/19 Date/Time of Note DATE: 05/02/19 TIME: 18:03 24 HR Interval Summary Free Text/Dictation Continues to have postoperative pain Ileostomy is functional Nothing is coming out through rectum Constitutional: improved Exam/Review of Systems Exam Vitals Vital Signs Date Temp Pulse Resp B/P (MAP) Pulse Ox O2 O2 Flow FiO2 Time Delivery Rate 05/02/19 98.2 78 19 149/91 98 07:16 (110) 05/02/19 Room Air 01:34 04/30/19 2.0 09:00 Intake and Output 05/01/19 05/01/19 05/02/19 1515:00 23:00 07:00 IntakeIntake Total 500 ml 1100 ml 1300 ml OutputOutput Total 150 ml 1300 ml BalanceBalance 350 ml -200 ml 1300 ml Constitutional: alert, oriented, well developed Psych: no complaints, nl mood/affect Head: normocephalic, atraumatic Eyes: nl conjunctiva, EOMI, nl lids, nl sclera, PERRL ENMT: nl external ears & nose, nl lips & teeth, nl nasal mucosa & septum Neck: supple, non-tender Respiratory: clear to auscultation, normal air movement Cardiovascular: regular rate and rhythm, nl pulses Gastrointestinal: soft, nl liver, spleen, non-tender, other (The stoma is functional and the stoma is viable) Musculoskeletal: nl extremities to inspection, nl gait and stance Extremities: normal pulses 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, nl mental status, nl speech, nl strength Skin: nl turgor; No rash or lesions Lymph: nl lymph nodes Results Result Diagram: 05/01/195 05/01/19424 Results 24hrs Laboratory Tests Test 05/02/19 08:30 Urine Color YELLOW Urine Clarity CLEAR Urine pH 5.0 Urine Specific [place] 1.023 Urine Ketones NEGATIVE Urine Nitrite NEGATIVE Urine Bilirubin NEGATIVE Urine Urobilinogen NEGATIVE Urine Leukocyte Esterase TRACE A Urine Microscopic RBC 1 Urine Microscopic WBC 3 Urine Hemoglobin NEGATIVE Urine Glucose NEGATIVE Urine Total Protein NEGATIVE Medications Medication Current Medications IV Flush (NS 3 ml) 3 ml PER PROTOCOL IV Last administered on 04/28/19 23:30; Admin Dose 3 ML; Start 04/25/19 at 21:30 Acetaminophen (Tylenol Supp) 650 mg Q6H PRN [place] .PAIN 1-3 OR TEMP; Start 04/25/19 at 21:30 Docusate Sodium (Colace) 100 mg Q12H PRN PO .CONSTIPATION Last administered on 04/29/19 09:40; Admin Dose 100 MG; Start 04/25/19 at 21:30 Magnesium Hydroxide (Milk Of Mag) 30 ml DAILY PRN PO .CONSTIPATION Last a dministered on 04/29/19 09:40; Admin Dose 30 ML; Start 04/25/19 at 21:30 Famotidine (Pepcid Iv) 20 mg BID IV Last administered on 05/02/19 09:38; Admin Dose 20 MG; Start 04/26/19 at 09:00 Metronidazole 100 ml @ 100 mls/hr Q8 IVPB Last administered on 05/02/19 14:17; Admin Dose 100 MLS/HR; Start 04/27/19 at 14:00 Piperacillin Sod/ Tazobactam Sod 100 ml @ 200 mls/hr Q6 IVPB Last administered on 05/02/19 18:00; Admin Dose 200 MLS/HR; Start 04/27/19 at 12:00 Morphine Sulfate (morphine) 2 mg Q2H PRN IV PAIN LEVEL 8-10 Last administered on 05/01/19 19:46; Admin Dose 2 MG; Start 04/27/19 at 09:00 Hydromorphone HCl (Dilaudid) 0.5 mg Q6H PRN IV BREAKTHROUGH PAIN Last administered on 05/02/19 12:42; Admin Dose 0.5 MG; Start 04/29/19 at 19:30 Acetaminophen/ Hydrocodone Bitart ([place] (5/325)) 1 tab Q6H PRN PO PAIN LEVEL 6-10 Last administered on 05/02/19at 15:53; Admin Dose 1 TAB; Start 04/29/19 at 1 9:30 Ketorolac Tromethamine (Toradol) 30 mg Q6H PRN IV PAIN Last administered on 05/02/19at 17:16; Admin Dose 30 MG; Start 04/29/19 at 19:30; Stop 05/02/19 at 19:29 Acetaminophen (Tylenol Tab) 650 mg Q6H PRN PO MILD PAIN(1-3)OR ELEVATED TEMP; Start 04/29/19 at 19:30 Ibuprofen (Motrin) 600 mg Q6H PRN PO PAIN LEVEL 1-5; Start 04/29/19 at 19:30 Diphenhydramine HCl (Benadryl) 25 mg Q6H PRN PO ITCHING; Start 04/29/19 at 19:30 Ondansetron HCl (Zofran Inj) 4 mg Q6H PRN IV NAUSEA AND/OR VOMITING; Start at 19:30 Potassium Chloride/Dextrose/ Sod Cl 1,000 ml @ 100 mls/hr Q10H IV Last administered on 05/02/19at 12:46; Admin Dose 100 MLS/HR; Start 04/29/19 at 19:30 LILI LOPEZ MD May 02, 2019 18:04
[2019-05-02 19:52] VITALS: BP 127/87; PULSE 60; RESP 18
[2019-05-03] MEDS: PIPER-TAZO 3.375 GM IV (PMX) 100 ML IVPB SCH ×2 (00:16→07:28)
[2019-05-03 00:25] VITALS: BP 124/85; PULSE 54; RESP 18
[2019-05-03] MEDS: HYDROmorphONE 0.5 MG/0.5 ML SYG IV PRN (04:02)
[2019-05-03] MEDS: HYDROCODONE/APAP (5/325) TAB PO PRN ×4 (04:22→20:15)
[2019-05-03] MEDS ORDERED: HYDROmorphONE 0.5 MG/0.5 ML SYG IV STA (07:34)
[2019-05-03] MEDS: metroNIDAZOLE 500 MG/NS (PMX) 100 ML IVPB SCH (08:52)
[2019-05-03] MEDS: FAMOTIDINE 20 MG INJ IV SCH ×2 (08:52→20:13)
--- NOTE | 2019-05-03 09:29 | CONS ---
Assessment/Plan Assessment/Plan Assessment/Plan (Daily) Assessment/Plan (Daily) IMPRESSION: 1. Abscess, suprapubic area, diverticular versus appendiceal. 2. Mild leukocytosis. 3. Patient had a laparoscopic drainage of the area appendicular abscess and r emoval of the appendix 4. The drain has brown discolored liquidy stool with a sediments stool in the sediments cannot be absolutely ruled out 5. Perforated diverticulum status post anterior resection followed by diverting ileostomy, it is functional Plan Continue postoperative care and antibiotic PLAN: Continue antibiotic and surgical followup Oral feeding as per surgeon ambulate Consultation Date/Type/Reason Admit Date/Time Apr 25, 2019 at 21:01 Initial Consult Date 04/26/19 Date/Time of Note DATE: 05/03/19 TIME: 09:28 24 HR Interval Summary Free Text/Dictation pain much better Exam/Review of Systems Exam Vitals Vital Signs Date Temp Pulse Resp B/P (MAP) Pulse Ox O2 O2 Flow FiO2 Time Delivery Rate 05/03/19 96 21 02:47 05/03/19 98.1 54 18 124/85 Room Air 00:25 (98) 04/30/19 2.0 09:00 Intake and Output 05/02/19 05/02/19 05/03/19 1414:59 22:59 06:59 IntakeIntake Total 100 ml 1530 ml 580 ml OutputOutput Total 775 ml 1275 ml 650 ml BalanceBalance -675 ml 255 ml -70 ml Constitutional: alert, oriented, well developed Psych: no complaints, nl mood/affect Head: normocephalic, atraumatic Eyes: nl conjunctiva, EOMI, nl lids, nl sclera, PERRL ENMT: nl external ears & nose, nl lips & teeth, nl nasal mucosa & septum Neck: supple, non-tender Respiratory: clear to auscultation, normal air movement Cardiovascular: regular rate and rhythm, nl pulses Gastrointestinal: soft, nl liver, spleen, non-tender Musculoskeletal: nl extremities to inspection, nl gait and stance Extremities: normal pulses 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, nl mental status, nl speech, nl strength Skin: nl turgor; No rash or lesions Lymph: nl lymph nodes Results Result Diagram: 05/01/1942405/01/19424 Medications Medication Current Medications IV Flush (NS 3 ml) 3 ml PER PROTOCOL IV Last administered on 04/28/19 23:30; Admin Dose 3 ML; Start 04/25/19 at 21:30 Acetaminophen (Tylenol Supp) 650 mg Q6H PRN [place] .PAIN 1-3 OR TEMP; Start 04/25/19 at 21:30 Docusate Sodium (Colace) 100 mg Q12H PRN PO .CONSTIPATION Last administered on 04/29/19 09:40; Admin Dose 100 MG; Start 04/25/19 at 21:30 Magnesium Hydroxide (Milk Of Mag) 30 ml DAILY PRN PO .CONSTIPATION Last administered on 04/29/19 09:40; Admin Dose 30 ML; Start 04/25/19 at 21:30 Famotidine (Pepcid Iv) 20 mg BID IV Last administered on 05/03/19 08:52; Admin Dose 20 MG; Start 04/26/19 at 09:00 Metronidazole 100 ml @ 100 mls/hr Q8 IVPB Last administered on 05/03/19 08:52; Admin Dose 100 MLS/HR; Start 04/27/19 at 14:00 Piperacillin Sod/ Tazobactam Sod 100 ml @ 200 mls/hr Q6 IVPB Last administered on 05/03/19 07:28; Admin Dose 200 MLS/HR; Start 04/27/19 at 12:00 Morphine Sulfate (morphine) 2 mg Q2H PRN IV PAIN LEVEL 8-10 Last administered on 05/01/19 19:46; Admin Dose 2 MG; Start 04/27/19 at 09:00 Hydromorphone HCl (Dilaudid) 0.5 mg Q6H PRN IV BREAKTHROUGH PAIN Last administered on 05/03/19 04:02; Admin Dose 0.5 MG; Start 04/29/19 at 19:30 Acetaminophen/ Hydrocodone Bitart ([place] (5/325)) 1 tab Q6H PRN PO PAIN LEVEL 6-10 Last administered on 05/03/19 04:22; Admin Dose 1 TAB; Start 04/29/19 at 19:30 Acetaminophen (Tylenol Tab) 650 mg Q6H PRN PO MILD PAIN(1-3)OR ELEVATED TEMP; Start 04/29/19 at 19:30 Ibuprofen (Motrin) 600 mg Q6H PRN PO PAIN LEVEL 1-5; Start 04/29/19 at 19:30 Diphenhydramine HCl (Benadryl) 25 mg Q6H PRN PO ITCHING; Start 04/29/19 at 19:30 Ondansetron HCl (Zofran Inj) 4 mg Q6H PRN IV NAUSEA AND/OR VOMITING; Start 04/29/19 at 19:30 LILI LOPEZ MD May 03, 2019 09:29
[2019-05-03 11:35] VITALS: BP 134/89; PULSE 55; RESP 19
--- NOTE | 2019-05-03 11:53 | PN ---
Date/Time of Note Date/Time of Note DATE: 05/03/19 TIME: 11:51 Assessment/Plan VTE Prophylaxis Risk score (from Ns)>0 risk: 8 SCD applied (from Ns): Yes Pharmacological prophylaxis: NA/contraindicated Pharm contraindication: low risk/ambulating Lines/Catheters IV [facility] Peripheral IV Urinary Cath still in place: No Assessment/Plan Assessment/Plan ssessment/Plan 1. Severe lower abdominal pain with a CT of the abdomen and pelvis showing an air and fluid collection suggestive of abscess, 3.2 x 5.3 cm x 3.1 cm. Could be secondary to ruptured appendicitis/sigmoid ruptured diverticulitis. s/p Exploratory laparoscopy, drainage of the intra-abdominal abscess, appendectomy on 04/27/19. S/p diverting ileostomy 04/29/2019 2. History of diverticulosis, status post diverticulitis already treated with p.o. antibiotics. 3. History of colitis. 4. Leukocytosis secondary to #1. 5. Anemia 6. Overweight Assessment/Plan -advance diet - po pain meds -s/p ileostomy creation , Ileostomy nurse teaching, resizing - Post op care ileostomy, nursing teaching -pain control - GI.proph. Famotidine -DVT prophylaxis dc planning with home health Result Diagram: 05/01/19 0425 05/01/19424 Subjective 24 Hr Interval Summary Free Text/Dictation Feels better every day Exam/Review of Systems Exam Vitals Vital Signs Date Temp Pulse Resp B/P (MAP) Pulse Ox O2 O2 Flow FiO2 Time Delivery Rate 05/03/19 98.1 55 19 134/89 98 Room Air 11:35 (104) 05/03/19 21 02:47 04/30/19 2.0 09:00 Intake and Output 05/02/19 05/02/19 05/03/19 1515:00 23:00 07:00 IntakeIntake Total 100 ml 1530 ml 580 ml OutputOutput Total 775 ml 1275 ml 650 ml BalanceBalance -675 ml 255 ml -70 ml Exam Constitutional: alert, oriented Head: normocephalic Eyes: nl conjunctiva Neck: supple Respiratory: clear to auscultation Cardiovascular: regular rate and rhythm Gastrointestinal: soft, surgical scars, other (ileostomy) Medications Medication Current Medications IV Flush (NS 3 ml) 3 ml PER PROTOCOL IV Last administered on 04/28/19 23:30; Admin Dose 3 ML; Start 04/25/19 at 21:30 Acetaminophen (Tylenol Supp) 650 mg Q6H PRN [place] .PAIN 1-3 OR TEMP; Start 04/25/19 at 21:30 Docusate Sodium (Colace) 100 mg Q12H PRN PO .CONSTIPATION Last administered on 04/29/19 09:40; Admin Dose 100 MG; Start 04/25/19 at 21:30 Magnesium Hydroxide (Milk Of Mag) 30 ml DAILY PRN PO .CONSTIPATION Last a dministered on 04/29/19 09:40; Admin Dose 30 ML; Start 04/25/19 at 21:30 Famotidine (Pepcid Iv) 20 mg BID IV Last administered on 05/03/19 08:52; Admin Dose 20 MG; Start 04/26/19 at 09:00 Morphine Sulfate (morphine) 2 mg Q2H PRN IV PAIN LEVEL 8-10 Last administered on 05/01/19 19:46; Admin Dose 2 MG; Start 04/27/19 at 09:00 Acetaminophen (Tylenol Tab) 650 mg Q6H PRN PO MILD PAIN(1-3)OR ELEVATED TEMP; Start 04/29/19 at 19:30 Ibuprofen (Motrin) 600 mg Q6H PRN PO PAIN LEVEL 1-5; Start 04/29/19 at 19:30 Diphenhydramine HCl (Benadryl) 25 mg Q6H PRN PO ITCHING; Start 04/29/19 at 19:30 Ondansetron HCl (Zofran Inj) 4 mg Q6H PRN IV NAUSEA AND/OR VOMITING; Start 04/29/19 at 19:30 Acetaminophen/ Hydrocodone Bitart ([place] (5/325)) 1 tab Q4 PRN PO PAIN LEVEL 1- 5; Start 05/03/19 at 11:30 Acetaminophen/ Hydrocodone Bitart ([place] (5/325)) 2 tab Q4H PRN PO PAIN LEVEL 6-10; Start 05/03/19 at 11:40 WENDI BELL MD May 03, 2019 11:53
--- NOTE | 2019-05-03 13:05 | PN ---
Date/Time of Note Date/Time of Note DATE: 05/03/19 TIME: 13:04 Assessment/Plan Lines/Catheters IV Catheter Type (from Nrs): Peripheral IV Musa in Place (from Nrs): No Subjective 24 Hr Interval Summary Patient is doing well 4 days after low anterior resection and diverting ileostomy. Paralytic ileus resolved. There is a good function of the ileostomy. Wound looks clean. Patient can be discharged home and advanced diet to ileostomy diet. Exam/Review of Systems Vital Signs Vitals Vital Signs Date Temp Pulse Resp B/P (MAP) Pulse Ox O2 O2 Flow FiO2 Time Delivery Rate 05/03/19 98.1 55 19 134/89 98 Room Air 11:35 (104) 05/03/19 21 02:47 04/30/19 2.0 09:00 Intake and Output 05/02/19 05/02/19 05/03/19 1515:00 23:00 07:00 IntakeIntake Total 100 ml 1530 ml 580 ml OutputOutput Total 775 ml 1275 ml 650 ml BalanceBalance -675 ml 255 ml -70 ml Results Result Diagram: 05/01/19 0425 05/01/19 0425 ELIAS CEDENO MD May 03, 2019 13:05
--- NOTE | 2019-05-03 13:43 | CONS ---
Assessment/Plan Assessment/Plan Hospital Course (Demo Recall) Alert feels good denies pain no fevers overnight tolerates pured diet Physical examination: Well-developed well-nourished middle-aged man who is alert in no distress. Head atraumatic normocephalic sclera nonicteric vehicle mucosa dry neck is supple chest rise symmetrical breath sounds clear heart S1-S2 abdomen soft bowel sounds present, colostomy present extremities without cyanosis. Skin: Mid abdominal incision with stephani clean dry and intact Assessment: 1. Perforated diverticulitis status post surgical repair 04/29/19 2. Status post systemic inflammatory response syndrome Plan: Patient is doing well, started on oral ciprofloxacin and Flagyl, anticipate complete 4 more days of antibiotics, follow surgical recommendations Consultation Date/Type/Reason Admit Date/Time Apr 25, 2019 at 21:01 Initial Consult Date 04/26/19 Type of Consult id Date/Time of Note DATE: 05/03/19 TIME: 13:42 Exam/Review of Systems Exam Vitals Vital Signs Date Temp Pulse Resp B/P (MAP) Pulse Ox O2 O2 Flow FiO2 Time Delivery Rate 05/03/19 98.1 55 19 134/89 98 Room Air 11:35 (104) 05/03/19 21 02:47 04/30/19 2.0 09:00 Intake and Output 05/02/19 05/02/19 05/03/19 1515:00 23:00 07:00 IntakeIntake Total 100 ml 1530 ml 580 ml OutputOutput Total 775 ml 1275 ml 650 ml BalanceBalance -675 ml 255 ml -70 ml Results Result Diagram: 05/01/19 0425 05/01/19 0425 Medications Medication Current Medications IV Flush (NS 3 ml) 3 ml PER PROTOCOL IV Last administered on 04/28/19at 23:30; Admin Dose 3 ML; Start 04/25/19 at 21:30 Acetaminophen (Tylenol Supp) 650 mg Q6H PRN [place] .PAIN 1-3 OR TEMP; Start 04/25/19 at 21:30 Docusate Sodium (Colace) 100 mg Q12H PRN PO .CONSTIPATION Last administered on 04/29/19at 09:40; Admin Dose 100 MG; Start 04/25/19 at 21:30 Magnesium Hydroxide (Milk Of Mag) 30 ml DAILY PRN PO .CONSTIPATION Last administered on 04/29/19at 09:40; Admin Dose 30 ML; Start 04/25/19 at 21:30 Famotidine (Pepcid Iv) 20 mg BID IV Last administered on 05/03/19at 08:52; Admin Dose 20 MG; Start 04/26/19 at 09:00 Morphine Sulfate (morphine) 2 mg Q2H PRN IV PAIN LEVEL 8-10 Last administered on 05/01/19at 19:46; Admin Dose 2 MG; Start 04/27/19 at 09:00 Acetaminophen (Tylenol Tab) 650 mg Q6H PRN PO MILD PAIN(1-3)OR ELEVATED TEMP; Start 04/29/19 at 19:30 Ibuprofen (Motrin) 600 mg Q6H PRN PO PAIN LEVEL 1-5; Start 04/29/19 at 19:30 Diphenhydramine HCl (Benadryl) 25 mg Q6H PRN PO ITCHING; Start 04/29/19 at 19:30 Ondansetron HCl (Zofran Inj) 4 mg Q6H PRN IV NAUSEA AND/OR VOMITING; Start 04/29/19 at 19:30 Acetaminophen/ Hydrocodone Bitart ([place] (5/325)) 1 tab Q4 PRN PO PAIN LEVEL 1- 5; Start 05/03/19 at 11:30 Acetaminophen/ Hydrocodone Bitart ([place] (5/325)) 2 tab Q4H PRN PO PAIN LEVEL 6-10 Last administered on 05/03/19at 12:30; Admin Dose 2 TAB; Start 05/03/19 at 11:40 Ciprofloxacin (Cipro) 250 mg BID@06,18 NGT ; Start 05/03/19 at 18:00 Metronidazole (Flagyl) 500 mg Q8 PO ; Start 05/03/19 at 14:00 RADHA RIVERA NP May 03, 2019 13:43
[2019-05-03 14:07] VITALS: BP 128/74; PULSE 62; RESP 20
[2019-05-03] MEDS: metroNIDAZOLE 500 MG TAB PO SCH ×2 (14:23→20:15)
[2019-05-03] MEDS: CIPROFLOXACIN 250 MG TAB NGT SCH (18:04)
[2019-05-03 20:19] VITALS: BP 131/83; PULSE 62; RESP 18
[2019-05-04] MEDS: HYDROCODONE/APAP (5/325) TAB PO PRN ×3 (00:52→12:14)
[2019-05-04 00:54] VITALS: BP 117/83; PULSE 56; RESP 18
[2019-05-04] MEDS: CIPROFLOXACIN 250 MG TAB NGT SCH (05:04)
[2019-05-04] MEDS: metroNIDAZOLE 500 MG TAB PO SCH ×2 (05:04→14:41)
--- NOTE | 2019-05-04 07:57 | CONS ---
Assessment/Plan Assessment/Plan Hospital Course (Demo Recall) 43 yo male Pt states his abdominal pain is markedly improved. NO nausea. He went for walk this am and is now tired. Ileostomy bag has brown liquid stool. Tolerating soft mechanical diet which was started yesterday. Incisional site is non erythematous and soft. 1. Lower abdominal pain secondary to #2 2. Abscess: ruptured appendicitis -s/p ex lap, drainage of intra-abdominal abscess and appendoctomy on 04/27 and s/p diverting ileostomy 04/29 3. Mild leukocytosis secondary to #2 -resolved 4. Mild anemia -will monitor 5. Overweight 6. H/O diverticulosis, s/p diverticulitis treated with PO abx 7. H/O colitis 8. Post op ileus -resolved Appendix, appendectomy: -- Acute appendicitis with severe periappendicitis and microabscess formation. -- No evidence of malignancy. PLAN: Continue post operative care, abx Diet per surgery Promote ambulation Pt examined and plan of care d/w Dr. Galindo Consultation Date/Type/Reason Admit Date/Time Apr 25, 2019 at 21:01 Initial Consult Date 04/26/19 Date/Time of Note DATE: 05/04/19 TIME: 07:50 Exam/Review of Systems Exam Vitals Vital Signs Date Temp Pulse Resp B/P (MAP) Pulse Ox O2 O2 Flow FiO2 Time Delivery Rate 05/04/19 98.3 56 18 117/83 98 Room Air 00:54 (94) 05/03/19 21 02:47 04/30/19 2.0 09:00 Intake and Output 05/03/19 05/03/19 05/04/19 1515:00 23:00 07:00 IntakeIntake Total 200 ml 420 ml 400 ml OutputOutput Total 200 ml 1000 ml 600 ml BalanceBalance 0 ml -580 ml -200 ml Results Result Diagram: 05/04/19 0425 05/04/19 0425 Results 24hrs Laboratory Tests Test 05/04/19 04:25 White Blood Count 8.4 Red Blood Count 4.09 L Hemoglobin 12.0 L Hematocrit 34.6 L Mean Corpuscular Volume 84.6 Mean Corpuscular Hemoglobin 29.3 Mean Corpuscular Hemoglobin Concent 34.7 Red Cell Distribution Width 12.0 Platelet Count 477 #H Mean Platelet Volume 8.9 Immature Granulocytes % 1.100 H Neutrophils % 62.1 Lymphocytes % 19.4 Monocytes % 9.3 Eosinophils % 7.3 H Basophils % 0.8 Nucleated Red Blood Cells % 0.0 Immature Granulocytes # 0.090 H Neutrophils # 5.2 Lymphocytes # 1.6 Monocytes # 0.8 Eosinophils # 0.6 H Basophils # 0.1 Nucleated Red Blood Cells # 0.0 Sodium Level 139 Potassium Level 4.1 Chloride Level 103 Carbon Dioxide Level 28 Anion Gap 8 Blood Urea Nitrogen 8 Creatinine 0.91 Est Glomerular Filtrat Rate mL/min > 60 Glucose Level 100 Calcium Level 9.2 Phosphorus Level 4.8 Magnesium Level 2.1 Medications Medication Current Medications IV Flush (NS 3 ml) 3 ml PER PROTOCOL IV Last administered on 04/28/19 23:30; Admin Dose 3 ML; Start 04/25/19 at 21:30 Acetaminophen (Tylenol Supp) 650 mg Q6H PRN [place] .PAIN 1-3 OR TEMP; Start 04/25/19 at 21:30 Docusate Sodium (Colace) 100 mg Q12H PRN PO .CONSTIPATION Last administered on 04/29/19 09:40; Admin Dose 100 MG; Start 04/25/19 at 21:30 Magnesium Hydroxide (Milk Of Mag) 30 ml DAILY PRN PO .CONSTIPATION Last administered on 04/29/19 09:40; Admin Dose 30 ML; Start 04/25/19 at 21:30 Famotidine (Pepcid Iv) 20 mg BID IV Last administered on 05/03/19 20:13; Admin Dose 20 MG; Start 04/26/19 at 09:00 Morphine Sulfate (morphine) 2 mg Q2H PRN IV PAIN LEVEL 8-10 Last administered on 05/01/19at 19:46; Admin Dose 2 MG; Start 04/27/19 at 09:00 Acetaminophen (Tylenol Tab) 650 mg Q6H PRN PO MILD PAIN(1-3)OR ELEVATED TEMP; Start 04/29/19 at 19:30 Ibuprofen (Motrin) 600 mg Q6H PRN PO PAIN LEVEL 1-5; Start 04/29/19 at 19:30 Diphenhydramine HCl (Benadryl) 25 mg Q6H PRN PO ITCHING; Start 04/29/19 at 19:30 Ondansetron HCl (Zofran Inj) 4 mg Q6H PRN IV NAUSEA AND/OR VOMITING; Start 04/29/19 at 19:30 Acetaminophen/ Hydrocodone Bitart ([place] (5/325)) 1 tab Q4 PRN PO PAIN LEVEL 1- 5 Last administered on 05/03/19at 20:15; Admin Dose 1 TAB; Start 05/03/19 at 11:30 Acetaminophen/ Hydrocodone Bitart ([place] (5/325)) 2 tab Q4H PRN PO PAIN LEVEL 6-10 Last administered on 05/04/19at 05:05; Admin Dose 2 TAB; Start 05/03/19 at 11 :40 Ciprofloxacin (Cipro) 250 mg BID@06,18 NGT Last administered on 05/04/19at 05:04; Admin Dose 250 MG; Start 05/03/19 at 18:00 Metronidazole (Flagyl) 500 mg Q8 PO Last administered on 05/04/19 05:04; Admin Dose 500 MG; Start 05/03/19 at 14:00 NERY MENARD May 04, 2019 07:57
[2019-05-04 08:03] VITALS: BP 124/84; PULSE 79; RESP 18
[2019-05-04] MEDS: FAMOTIDINE 20 MG INJ IV SCH (09:02)
--- NOTE | 2019-05-04 11:44 | PDOCDIS ---
Discharge Instructions DIAGNOSIS Discharge Diagnosis sp appendectomy Status post ileostomy CONDITION [id number] Patient Condition: [id number] Fair HOME CARE INSTRUCTIONS: [id number] Diet Instructions: [id number] SOFT [id number] Special Diet: Renpn0n ileostomy diet ACTIVITY: Evzyo3Or Activity Restrictions: [id number] Slowly Increase Activity Rest between Activity Avoid heavy lifting Do not operate Machinery FOLLOW UP/APPOINTMENTS Follow-up Plan follow Low with Dr. lu in 1 week keep surgical site clean return to ER if has wound infection,fevers,chills WENDI BELL MD May 04, 2019 11:44
[2019-05-04] MEDS ORDERED: CIPR500T4 PO (11:46)
[2019-05-04] MEDS ORDERED: METR-111 PO (11:46)
[2019-05-04] MEDS ORDERED: HYDR-3601 PO (11:46)
--- NOTE | 2019-05-04 14:31 | CONS ---
Assessment/Plan Assessment/Plan Hospital Course (Demo Recall) Alert feels good Physical examination: Well-developed well-nourished middle-aged man who is alert in no distress. Head atraumatic normocephalic sclera nonicteric vehicle mucosa dry neck is supple chest rise symmetrical breath sounds clear heart S1-S2 abdomen soft bowel sounds present, colostomy present extremities without cyanosis. Skin: Mid abdominal incision with stephani clean dry and intact Assessment: 1. Perforated diverticulitis status post surgical repair 04/29/19 2. Status post systemic inflammatory response syndrome Plan: Patient is doing well, okay discharge on current antibiotics for 4 more days Consultation Date/Type/Reason Admit Date/Time Apr 25, 2019 at 21:01 Initial Consult Date 04/26/19 Type of Consult id Date/Time of Note DATE: 05/04/19 TIME: 14:31 Exam/Review of Systems Exam Vitals Vital Signs Date Temp Pulse Resp B/P (MAP) Pulse Ox O2 O2 Flow FiO2 Time Delivery Rate 05/04/19 98.1 79 18 124/84 96 Room Air 08:03 (97) 05/03/19 21 02:47 04/30/19 2.0 09:00 Intake and Output 05/03/19 05/03/19 05/04/19 1515:00 23:00 07:00 IntakeIntake Total 200 ml 420 ml 400 ml OutputOutput Total 200 ml 1000 ml 600 ml BalanceBalance 0 ml -580 ml -200 ml Results Result Diagram: 05/04/19 0425 05/04/19 0425 Results 24hrs Laboratory Tests Test 05/04/19 04:25 White Blood Count 8.4 Red Blood Count 4.09 L Hemoglobin 12.0 L Hematocrit 34.6 L Mean Corpuscular Volume 84.6 Mean Corpuscular Hemoglobin 29.3 Mean Corpuscular Hemoglobin Concent 34.7 Red Cell Distribution Width 12.0 Platelet Count 477 #H Mean Platelet Volume 8.9 Immature Granulocytes % 1.100 H Neutrophils % 62.1 Lymphocytes % 19.4 Monocytes % 9.3 Eosinophils % 7.3 H Basophils % 0.8 Nucleated Red Blood Cells % 0.0 Immature Granulocytes # 0.090 H Neutrophils # 5.2 Lymphocytes # 1.6 Monocytes # 0.8 Eosinophils # 0.6 H Basophils # 0.1 Nucleated Red Blood Cells # 0.0 Sodium Level 139 Potassium Level 4.1 Chloride Level 103 Carbon Dioxide Level 28 Anion Gap 8 Blood Urea Nitrogen 8 Creatinine 0.91 Est Glomerular Filtrat Rate mL/min > 60 Glucose Level 100 Calcium Level 9.2 Phosphorus Level 4.8 Magnesium Level 2.1 Medications Medication Current Medications IV Flush (NS 3 ml) 3 ml PER PROTOCOL IV Last administered on 04/28/19 23:30; Admin Dose 3 ML; Start 04/25/19 at 21:30 Acetaminophen (Tylenol Supp) 650 mg Q6H PRN [place] .PAIN 1-3 OR TEMP; Start 04/25/19 at 21:30 Docusate Sodium (Colace) 100 mg Q12H PRN PO .CONSTIPATION Last administered on 04/29/19 09:40; Admin Dose 100 MG; Start 04/25/19 at 21:30 Magnesium Hydroxide (Milk Of Mag) 30 ml DAILY PRN PO .CONSTIPATION Last administered on 04/29/19 09:40; Admin Dose 30 ML; Start 04/25/19 at 21:30 Famotidine (Pepcid Iv) 20 mg BID IV Last administered on 05/04/19 09:02; Admin Dose 20 MG; Start 04/26/19 at 09:00 Morphine Sulfate (morphine) 2 mg Q2H PRN IV PAIN LEVEL 8-10 Last administered on 05/01/19 19:46; Admin Dose 2 MG; Start 04/27/19 at 09:00 Acetaminophen (Tylenol Tab) 650 mg Q6H PRN PO MILD PAIN(1-3)OR ELEVATED TEMP; Start 04/29/19 at 19:30 Ibuprofen (Motrin) 600 mg Q6H PRN PO PAIN LEVEL 1-5; Start 04/29/19 at 19:30 Diphenhydramine HCl (Benadryl) 25 mg Q6H PRN PO ITCHING; Start 04/29/19 at 19:30 Ondansetron HCl (Zofran Inj) 4 mg Q6H PRN IV NAUSEA AND/OR VOMITING; Start 04/29/19 at 19:30 Acetaminophen/ Hydrocodone Bitart ([place] (5/325)) 1 tab Q4 PRN PO PAIN LEVEL 1- 5 Last administered on 05/04/19 12:14; Admin Dose 1 TAB; Start 05/03/19 at 11:30 Acetaminophen/ Hydrocodone Bitart ([place] (5/325)) 2 tab Q4H PRN PO PAIN LEVEL 6-10 Last administered on 05/04/19at 05:05; Admin Dose 2 TAB; Start 05/03/19 at 11:40 Ciprofloxacin (Cipro) 250 mg BID@06,18 NGT Last administered on 05/04/19at 05:04; Admin Dose 250 MG; Start 05/03/19 at 18:00 Metronidazole (Flagyl) 500 mg Q8 PO Last administered on 05/04/19at 05:04; Admin Dose 500 MG; Start 05/03/19 at 14:00 RADHA RIVERA NP May 04, 2019 14:31
--- NOTE | 2019-05-05 06:17 | DS ---
DATE OF ADMISSION: 04/25/2019 DATE OF DISCHARGE: 05/04/2019 HISTORY OF PRESENT ILLNESS AND HOSPITAL COURSE: A 43-year-old male with a past medical history of di verticulitis, last episode 3 to 4 months ago, presented to the emergency department with several week s of abdominal pain getting worse for the past few days. The patient has multiple ER visits, was veronique ated with multiple p.o. antibiotics. The patient came into the emergency department due to worsening lower abdominal pain and he was also having fevers in spite of taking oral antibiotics. On admissio n, temperature 98.9, pulse 80, respirations 18, blood pressure 125/63. White count 11.4, hemoglobin 13.7, platelet count 434. The patient had a CT of the abdomen and pelvis which was done initially wi th no contrast and then with IV contrast that showed air-filled collection suggestive of abscess in t he lower abdomen. Appendix appears to be coarse suggestive of ruptured appendicitis and there is als o sigmoid colon diverticulitis, also abuts the inferior margin of the collection. Diverticular absce ss cannot be totally excluded. The patient was admitted to med/surg unit, started on IV pain medicat ion, IV Zosyn, also Flagyl. The patient was seen by a surgical consultation with Dr. Juan. Initial ly, the patient had on 04/27/2019 had ex-laparoscopy drainage of intra-abdominal abscess and appendec alberto. The patient had possibly perforated diverticulitis versus perforated appendicitis. The patien t was doing well postop; however, then the patient started to have some brownish discharge through th e JANNETTE drain. White count was going up. The patient was taken back to OR on 04/29/[address] Juan. Had open low anterior resection, diverting loop and ostomy, had perforated diverticulitis. Postop, patient's condition was better. White count came down. The patient was continued on IV antibiotics and ostomy started functioning. The patient was slowly advanced to diet. Postop ileus was resolved. The patient's wound looked clean and the patient was started on p.o. antibiotics and p.o. pain medi cation and the patient is stable to be discharged home per Dr. Juan and per GI. Per ID recommendati ons, the patient will be continued on Cipro and Flagyl for 4 more days. FINAL DISCHARGE DIAGNOSES: 1. Abdominal abscess status post exploratory laparotomy x2, first on 04/27/2019 with removal and kiki endectomy and then on 04/29/2019 with drainage of the abscess and diverting ileostomy. 2. Leukocytosis secondary to #1, resolved. 3. Mild anemia, resolved. 4. Overweight. 5. History of diverticulosis, status post diverticulitis. 6. Postoperative ileus. DISCHARGE CONDITION: Stable. DISCHARGE DIET: An ileostomy diet. DISCHARGE MEDICATIONS: 1. [place] 1 tab p.o. p.r.n. pain. 2. Cipro 500 b.i.d. for 4 more days. 3. Flagyl 500 q.8 for 4 more days. DISCHARGE INSTRUCTIONS: The patient was instructed to follow up with Dr. Juan in 1 week. The milenae nt was keep told to keep the surgical site clean. Arrangement was done for home health for ileostomy supplies and home health nurse. Dictated By: WENDI MACEDO/FABIENNE Conf#: [id number] DID#: [id number] CC: SURESH SINGH MD;*EndCC*
== END 2019-05-04 15:19 | disposition home health service (06) | DRG 329 ==
LOC: FTE 14:14 → MS1 21:01
PROVIDERS: ADMIT Internal Medicine Nephrology; ATTEND Internal Medicine Nephrology
PROC: 0DTJ4ZZ Resection of Appendix, Percutaneous Endoscopic Approach (ICD-10-PCS; 2019-04-27)
PROC: 0D1B0Z4 Bypass Ileum to Cutaneous, Open Approach (ICD-10-PCS; 2019-04-29)
PROC: 0DBN0ZZ Excision of Sigmoid Colon, Open Approach (ICD-10-PCS; principal; 2019-04-29 17:00)
DX: K57.20 Diverticulitis of large intestine with perforation and abscess without bleeding (principal); K35.33 Acute appendicitis with perforation, localized peritonitis, and gangrene, with abscess; K56.7 Ileus, unspecified; D64.9 Anemia, unspecified; E66.3 Overweight; Z68.28 Body mass index [BMI] 28.0-28.9, adult
CPT/HCPCS: 36415; 74176; 74177; 80048; 80053; 81001; 83036; 83690; 83735; 84100; 85025; 88304; 96361; 96374; 96375; J0360; J0690; J1100; J1170; J1885; J2175; J2250; J2270; J2405; J2543; J2710; J2765; J2795; J3010; J3480; J7030; J7042; Q9967

== ENCOUNTER 2019-05-16 15:57 | Emergency (ER) | payer OTHER ==
[~2019-05-16] VITALS: Ht 175.3 cm; Wt 74.0 kg
[~2019-05-16 15:57] MED LIST changes: +CIPR500T4 PO; -CIPRO; +HYDR-3601 PO; +METR-111 PO; -METRONIDAZOLE
[2019-05-16 16:08] VITALS: BP 117/79; PULSE 92; RESP 18; Ht 175.3 cm; Wt 74.0 kg
[2019-05-16] MEDS ORDERED: CEPH-443 PO (16:23)
--- NOTE | 2019-05-16 16:26 | ERD ---
ER Documentation Chief Complaint Chief Complaint had appendectomy on april 26, wound appears to be opening HPI 43-year-old male presents status post appendectomy and partial colectomy for div erticulitis approximately 2 to 3 weeks ago. He feels like his overall condition is improving as he has normal abdominal pain and he is stooling without fevers, vomiting. He has noted some discharge from the wound superficially below his umbilicus and slightly below midline. Is requesting a wound eval. he is nearing completion of a course of Flagyl and Cipro. ROS All systems reviewed and are negative except as per history of present illness. Medications Home Meds Active Scripts Cephalexin* (Keflex*) 500 Mg Capsule, 500 MG PO QID for 7 Days, CAP Prov:BUCKY GARZA MD 05/16/19 Hydrocodone Bit-Acetaminophen (Hydrocodone Bit-APAP) 5-325MG Tablet, 1 TAB PO Q4 PRN for PAIN LEVEL 1-5 for 30 Days, TAB Prov:WENDI BELL MD 05/04/19 Ciprofloxacin Hcl* (Ciprofloxacin Hcl*) 500 Mg Tablet, 500 MG PO BID, #8 TAB TAKE 1 TABLET BY MOUTH TWICE A DAY FOR 4 DAYS Prov:WNEDI BELL MD 05/04/19 Metronidazole (Flagyl) 250 Mg Tab, 250 MG PO TID for 4 Days, #12 TAB TAKE 1 TABLET BY MOUTH 3 TIMES A DAY FOR 4 DAYS Prov:WENDI BELL MD 05/04/19 Allergies Allergies: Coded Allergies: No Known Allergy (Unverified , 04/25/19) PMhx/Soc History of Surgery: No Anesthesia Reaction: No Hx Neurological Disorder: No Hx Respiratory Disorders: No Hx Cardiac Disorders: No Hx Psychiatric Problems: No Hx Miscellaneous Medical Probl: No Hx Alcohol Use: No Hx Substance Use: No Hx Tobacco Use: No FmHx Family History: No diabetes, No coronary disease, No other Physical Exam Vitals Vital Signs Date Temp Pulse Resp B/P (MAP) Pulse Ox O2 O2 Flow FiO2 Time Delivery Rate 05/16/19 98.6 92 18 117/79 99 16:08 (92) Physical Exam Const: No acute distress Head: Atraumatic Eyes: Normal Conjunctiva ENT: Normal External Ears, Nose and Mouth. Neck: Full range of motion. No meningismus. Resp: Clear to auscultation bilaterally Cardio: Regular rate and rhythm, no murmurs Abd: Soft, non tender, non distended. Normal bowel sounds. No deep abdominal tenderness. There is superficial drainage of serosanguineous liquid which is scant from below the umbilicus and his inferior surgical wound. Stoma is pink and patent. No rebound or masses. Skin: No petechiae or rashes Back: No midline or flank tenderness Ext: No cyanosis, or edema Neur: Awake and alert Psych: Normal Mood and Affect Procedures/MDM Patient presents with what appears to be a superficial seroma of the incision of his recent colectomy and appendectomy. He has no signs of abdominal wall cellulitis, significant abdominal pain to suggest obstruction, intra-abdominal abscess, complications. We will treat with Keflex for staph coverage, and patient is instructed for wound care and general surgery follow-up. He is otherwise advised to return for worsening redness, fevers, vomiting, new worsening symptoms. Patient discharged Departure Diagnosis: Primary Impression: Seroma Condition: Stable Patient Instructions: Seroma, Postsurgical Additional Instructions: Wound should continue to heal from inside out. Recommend frequent dressing changes use soap and water for cleansing. Recheck with surgeon as scheduled. Recheck otherwise for worsening redness, fevers, vomiting, new worsening symptoms. BUCKY GARZA MD May 16, 2019 16:26
== END 2019-05-16 16:26 | disposition home or self-care (01) ==
LOC: E/R 15:57
DX: L76.34 Postprocedural seroma of skin and subcutaneous tissue following other procedure (principal)
CPT/HCPCS: 99283